=== PATIENT | male | born 1950 | race Caucasian/White ===

== ENCOUNTER 2016-07-06 16:49 | Emergency (ER) | payer OTHER, MEDICARE ==
[2016-07-06 16:58] VITALS: TEMP 99.4
--- NOTE | 2016-07-06 17:17 | ED ---
Abdominal Pain HPI - General Chief Complaint: Abdominal Pain Stated Complaint: Abdominal Pain Time Seen by Provider: 07/06/16 17:07 Source: patient Mode of arrival: ambulatory Limitations: no limitations - History of Present Illness Initial Comments: 65-year-old male patient presents to emergency department today for complaints of right-sided abdominal pain that started 2 days ago. Patient states with this he has been having some associated nausea. Patient has been able to eat and drink without difficulty however. Patient denies any pain at rest but states that he gets a sharp pain that takes his breath away when he sits forward or tenses his abdominal muscles. Patient denies any vomiting, dizziness , weakness, chest pain, shortness of breath, constipation, diarrhea, hematuria, dysuria, urinary urgency, or urinary frequency. Patient denies any fever or chills. Does have a past medical history significant for kidney stones as well as diverticulitis. - Related Data Home Medications Medication Instructions Recorded Confirmed Ascorbic Acid [Vitamin C] 500 mg PO DAILY 07/06/16 07/06/16 Cholecalciferol [Vitamin D3] 2,000 unit PO DAILY 07/06/16 07/06/16 Insulin Glargine [Lantus] 70 units SQ DAILY 07/06/16 07/06/16 Lisinopril [Zestril] 5 mg PO DAILY 07/06/16 07/06/16 Thiamine HCl [Vitamin B-1] 100 mg PO DAILY 07/06/16 07/06/16 metFORMIN HCL [Glucophage] 1,000 mg PO BID 07/06/16 07/06/16 Previous Rx's Medication Instructions Recorded Ciprofloxacin HCl [Cipro] 500 mg PO Q12HR #20 tablet 07/06/16 metroNIDAZOLE [Flagyl] 500 mg PO TID #30 tab 07/06/16 Allergies Allergy/AdvReac Type Severity Reaction Status Date / Time No Known Allergies Allergy Verified 07/06/16 17:09 Review of Systems ROS Statement: Those systems with pertinent positive or pertinent negative responses have been documented in the HPI. ROS Other: All systems not noted in ROS Statement are negative. Past Medical History Past Medical History: Diabetes Mellitus Additional Past Medical History / Comment(s): kidney stones History of Any Multi-Drug Resistant Organisms: None Reported Past Surgical History: Bladder Surgery, Cholecystectomy, Tonsillectomy Past Psychological History: No Psychological Hx Reported Smoking Status: Never smoker Past Alcohol Use History: Occasional Past Drug Use History: None Reported General Exam Limitations: no limitations General appearance: alert, in no apparent distress Head exam: Present: atraumatic, normocephalic, normal inspection Eye exam: Present: normal appearance, PERRL, EOMI. Absent: scleral icterus, conjunctival injection, periorbital swelling ENT exam: Present: normal exam, normal oropharynx, mucous membranes moist Neck exam: Present: normal inspection. Absent: tenderness, meningismus, lymphadenopathy Respiratory exam: Present: normal lung sounds bilaterally. Absent: respiratory distress, wheezes, rales, rhonchi, stridor Cardiovascular Exam: Present: regular rate, normal rhythm, normal heart sounds. Absent: systolic murmur, diastolic murmur, rubs, gallop, clicks GI/Abdominal exam: Present: soft, tenderness (Mild over the left lower quadrant and right lower quadrant), normal bowel sounds. Absent: distended, guarding, rebound, rigid Back exam: Present: normal inspection. Absent: CVA tenderness (R), CVA tenderness (L) Neurological exam: Present: alert, oriented X3, CN II-XII intact Psychiatric exam: Present: normal affect, normal mood Skin exam: Present: warm, dry, intact, normal color. Absent: rash Course Vital Signs 07/06/16 07/06/16 16:55 19:38 Temperature 99.4 F Pulse Rate 87 91 Respiratory 18 16 Rate Blood Pressure 150/76 130/73 O2 Sat by Pulse 98 96 Oximetry - Reevaluation(s) Reevaluation #1: 07/06/16 18:46 Reevaluated patient has this time. He states pain is tolerable and denies need for pain medications at this time. Will order a computed tomography scan due to patient's history of diverticulitis as well as kidney stones. Medical Decision Making - Medical Decision Making 65-year-old male patient presented to the emergency department today for complaints of right-sided abdominal pain with some nausea. Lab work and KUB x- ray of the abdomen was unremarkable. Also perform computed tomography scan which showed some focal colitis near the hepatic flexure. Patient will be discharged home with prescription for Flagyl and Cipro. Instructions to follow up with his primary care physician in one to 2 days. Instructed patient to return for any worsening, new, or concerning symptoms. - Lab Data Result diagrams: 07/06/16 17:40 07/06/16 17:40 Lab Results 07/06/16 07/06/16 07/06/16 Range/Units 17:40 17:40 17:40 WBC 9.8 (3.8-10.6) k/uL RBC 5.66 (4.30-5.90) m/uL Hgb 16.8 (13.0-17.5) gm/dL Hct 49.9 (39.0-53.0) % MCV 88.0 (80.0-100.0) fL MCH 29.7 (25.0-35.0) pg MCHC 33.7 (31.0-37.0) g/dL RDW 13.6 (11.5-15.5) % Plt Count 239 (150-450) k/uL Neutrophils % 66 % Lymphocytes % 24 % Monocytes % 5 % Eosinophils % 3 % Basophils % 1 % Neutrophils # 6.4 (1.3-7.7) k/uL Lymphocytes # 2.4 (1.0-4.8) k/uL Monocytes # 0.5 (0-1.0) k/uL Eosinophils # 0.3 (0-0.7) k/uL Basophils # 0.1 (0-0.2) k/uL Sodium 141 (137-145) mmol/L Potassium 4.6 (3.5-5.1) mmol/L Chloride 105 (98-107) mmol/L Carbon Dioxide 24 (22-30) mmol/L Anion Gap 12 mmol/L BUN 12 (9-20) mg/dL Creatinine 0.74 (0.66-1.25) mg/dL Est GFR (MDRD) Af Amer >60 (>60 ml/min/1.73 sqM) Est GFR (MDRD) Non-Af >60 (>60 ml/min/1.73 sqM) Glucose 242 H (74-99) mg/dL Calcium 10.2 (8.4-10.2) mg/dL Total Bilirubin 0.8 (0.2-1.3) mg/dL AST 42 (17-59) U/L ALT 58 (21-72) U/L Alkaline Phosphatase 123 (38-126) U/L Total Protein 7.5 (6.3-8.2) g/dL Albumin 4.5 (3.5-5.0) g/dL Amylase 65 (30-110) U/L Lipase 60 (23-300) U/L Urine Color Yellow Urine Appearance Clear (Clear) Urine pH 5.5 (5.0-8.0) Ur Specific [place] 1.020 (1.001-1.035) Urine Protein Negative (Negative) Urine Glucose (UA) 4+ H (Negative) Urine Ketones Negative (Negative) Urine Blood Negative (Negative) Urine Nitrite Negative (Negative) Urine Bilirubin Negative (Negative) Urine Urobilinogen <2.0 (<2.0) mg/dL Ur Leukocyte Esterase Negative (Negative) - Radiology Data Radiology results: report reviewed CT abdomen and pelvis with contrast reveals mild atelectasis at the right lung base. Normal appendix. Mild sigmoid diverticulosis without diverticulitis. 1 cm cyst noted in the upper pole of the left kidney. Small hepatic cysts. Also minimal fat straining in the hepatic flexure of the colon consistent with focal colitis. Impression by Dr. Pitt. Disposition Clinical Impression: Colitis, Uncontrolled diabetes mellitus Disposition: HOME SELF-CARE Condition: Stable Instructions: Colitis (ED) Additional Instructions: Increase fluids. Complete prescriptions and follow-up with primary care physician in one to 2 days for recheck. Monitor blood sugars. Return for any new, worsening, or concerning symptoms. Prescriptions: Ciprofloxacin HCl [Cipro] 500 mg PO Q12HR #20 tablet metroNIDAZOLE [Flagyl] 500 mg PO TID #30 tab Referrals: None,Stated [Primary Care Provider] - 1-2 days Time of Disposition: 19:40
[2016-07-06 17:57] LABS: Basophils # (A) 0.1 k/uL (0-0.2); Basophils % (A) 1 %; CH 30.5; CHCM 34.8; Eosinophils # (A) 0.3 k/uL (0-0.7); Eosinophils % (A) 3 %; HCT 49.9 % (39.0-53.0); HDW 2.45; HGB 16.8 gm/dL (13.0-17.5); Luc # (Auto) 0.17; Luc % (Auto) 2; Lymphocytes # (A) 2.4 k/uL (1.0-4.8); Lymphocytes % (A) 24 %; MCH 29.7 pg (25.0-35.0); MCHC 33.7 g/dL (31.0-37.0); Mean Platelet Volume 7.5; Monocytes # (A) 0.5 k/uL (0-1.0); Monocytes % (A) 5 %; Neutrophils # (A) 6.4 k/uL (1.3-7.7); Neutrophils % (A) 66 %; RBC 5.66 m/uL (4.30-5.90); RDW 13.6 % (11.5-15.5); WBC 9.8 k/uL (3.8-10.6); WBC (Perox) 9.54
[2016-07-06 18:00] LABS: Appearance,Urine Clear (Clear); Bilirubin,Urine Negative (Negative); Glucose,Urine (UA) 4+ (Negative); Ketones,Urine Negative (Negative); Leukocyte Esterase,Urine Negative (Negative); Nitrite,Urine Negative (Negative); PH, Urine 5.5 (5.0-8.0); Protein,Urine Negative (Negative); UA Billing (MACRO vs. MICRO) CHEM; Urobilinogen,Urine <2.0 mg/dL (<2.0)
[2016-07-06 18:10] LABS: ALT 58 U/L (21-72); AST 42 U/L (17-59); Alkaline Phosphatase 123 U/L (38-126); Amylase 65 U/L (30-110); Anion Gap 12 mmol/L; Blood Urea Nitrogen 12 mg/dL (9-20); Calcium 10.2 mg/dL (8.4-10.2); Carbon Dioxide 24 mmol/L (22-30); Chloride 105 mmol/L (98-107); Glucose 242 mg/dL (74-99); Non-African American GFR(MDRD) >60 (>60 ml/min/1.73 sqM); Potassium 4.6 mmol/L (3.5-5.1); Sodium 141 mmol/L (137-145); Total Bilirubin 0.8 mg/dL (0.2-1.3); Total Protein 7.5 g/dL (6.3-8.2)
--- NOTE | 2016-07-06 18:11 | XR ---
EXAMINATION TYPE: XR KUB DATE OF EXAM: 07/06/2016 5:56 PM COMPARISON: NONE HISTORY: Abdominal pain TECHNIQUE: 2 views FINDINGS: There is no sign of intestinal obstruction or pneumoperitoneum. Fecal pattern is normal. Wilda ng bases are clear. There are no pathologic calcifications over the kidneys. There are clips from cho lecystectomy. IMPRESSION: Nonacute abdomen.
[2016-07-06] MEDS ORDERED: RX INFO: IV CONTRAST WAS GIVEN 1 EACH MISC MISCELLANE PRN (18:30)
[2016-07-06] MEDS ORDERED: SODIUM CHLORIDE 0.9% 1,000 ML IV ONE (19:09)
--- NOTE | 2016-07-06 19:35 | CT ---
EXAMINATION TYPE: CT abdomen pelvis w con DATE OF EXAM: 07/06/2016 7:07 PM COMPARISON: NONE HISTORY: Patient complains of RUQ pain. CT DLP: 1693.7 mGycm Automated exposure control for dose reduction was used. TECHNIQUE: Helical acquisition of images was performed from the lung bases through the pelvis. CONTRAST: Performed without Oral Contrast and with IV Contrast, patient injected with 100 mL of Omnipaque 300. FINDINGS: There is mild atelectasis at the right lung base. Heart size is normal. There is a 1 cm cyst in the l eft lobe of the liver. Liver shows no focal defect otherwise. Bile ducts are not dilated. There are c lips from cholecystectomy. Pancreas appears normal. Spleen appears normal. There is no adrenal mass. Kidneys show satisfactory contrast opacification. There is no hydronephrosis. There is no retroperito latrice adenopathy. There is no ascites. I see no intestinal wall thickening. There are no dilated loops . Appendix appears normal. Bony structures are intact. There are few sigmoid diverticula. There is mi ld fat stranding around the hepatic flexure of the colon. IMPRESSION: MILD ATELECTASIS AT THE RIGHT LUNG BASE. NORMAL APPENDIX. MILD SIGMOID DIVERTICULOSIS WITHOUT DIVERTI CULITIS. 1 CM CYST NOTED IN UPPER POLE LEFT KIDNEY. SMALL HEPATIC CYST. MINIMAL FAT STRANDING IN THE HEPATIC FLEXURE OF THE COLON CONSISTENT WITH FOCAL COLITIS.
[2016-07-06 19:39] VITALS: BP 130/73; PULSE 91; RESP 16
== END 2016-07-06 20:31 | disposition home or self-care (01) ==
LOC: EC 16:49
DX: K52.9 Noninfective gastroenteritis and colitis, unspecified (principal); E11.65 Type 2 diabetes mellitus with hyperglycemia; Z79.4 Long term (current) use of insulin; Z79.84 Long term (current) use of oral hypoglycemic drugs; Z79.899 Other long term (current) drug therapy; Z87.19 Personal history of other diseases of the digestive system; Z87.442 Personal history of urinary calculi
CPT/HCPCS: 99284 ×2; 96360 ×2; 36415; 80053; 82150; 83690; 85025; 81003; 74000; 74177; Q9967

== ENCOUNTER → 2017-05-05 | Outpatient (CLI) | payer OTHER, MEDICARE ==
--- NOTE | 2017-05-05 09:25 | US ---
EXAMINATION TYPE: US carotid duplex BILAT DATE OF EXAM: 05/05/2017 COMPARISON: NONE CLINICAL HISTORY: Dizziness and giddiness R42. Borderline HTN, no hx of tia or stroke EXAM MEASUREMENTS: RIGHT: Peak Systolic Velocity (PSV) cm/sec ----- Right CCA: 105.1 ----- Right ICA: 87.8 ----- Right ECA: 135.0 ICA/CCA ratio: 0.8 RIGHT: End Diastole cm/sec ----- Right CCA: 27.0 ----- Right ICA: 24.1 ----- Right ECA: 30.0 LEFT: Peak Systolic Velocity (PSV) cm/sec ----- Left CCA: 107.9 ----- Left ICA: 73.5 ----- Left ECA: 114.5 ICA/CCA ratio: 0.7 LEFT: End Diastole cm/sec ----- Left CCA: 22.0 ----- Left ICA: 15.3 ----- Left ECA: 17.6 VERTEBRALS (direction of flow): Right Vertebral: Antegrade Left Vertebral: Antegrade Rhythm: Normal No plaque, wall thickening, or significant stenosis seen. Elevated right ECA. IMPRESSION: No evidence for hemodynamically significant stenosis. Criteria for Assigning % of Stenosis / Diameter reduction (Estimation based on the indirect measurements of the internal carotid artery velocities (ICA PSV). 1. Normal (no stenosis)=ICA PSV < 125 cm/s: ratio < 2.0: ICA EDV<40 cm/s. 2. Less than 50% stenosis=ICA PSV < 125 cm/s: ratio < 2.0: ICA EDV<40 cm/s. 3. 50 to 69% stenosis=ICA PSV of 125 to 230 cm/s: ration 2.0 ? 4.0: ICA EDV 40-100 cm/s. 4. Greater than 70% stenosis to near occlusion= ICA PSV > 230 cm/s: ratio > 4.0: ICA EDV > 100 cm/s. 5. Near occlusion= ICA PSV velocities may be low or undetectable: variable ratio and ICA EDV. 6. Total occlusion=unable to detect flow.
--- NOTE | 2017-05-05 09:27 | US ---
EXAMINATION TYPE: US scrotum with doppler. Grayscale and color Doppler Duplex imaging performed of t he scrotum. DATE OF EXAM: 05/05/2017 COMPARISON: NONE CLINICAL HISTORY: Dizziness and giddiness R42 Mass R testice N50.819. Patient states doctor felt righ t sided mass. Patient states no pain, discomfort or swelling. EXAM MEASUREMENTS: TESTICLES: Right Testicle: 4.1 x 3.5 x 2.7 cm Left Testicle: 4.5 x 3.3 x 2.4 cm EPIDIDYMIS HEAD: Right Epididymis: 1.1 x 1.2 x 0.6 cm Left Epididymis: 1.3 x 0.9 x 0.8 cm Doppler performed to assess for testicular vascularity; good bilateral color flow and waveforms are s een. There is no evidence of testicular torsion. Presence of hydroceles: yes, bilateral Presence of varicoceles: yes, bilateral with valsalva performed No masses or lesions seen within bilateral testes. Calcifications seen in right scrotal sac, largest = 0.9 cm. Left epididymal cyst seen in head = 0.4 cm. Pedunculated left epididymal cyst = 0.8 cm. IMPRESSION: 1. Bilateral hydroceles and varicoceles. 2. Focal calcifications right scrotal sac possibly from remote infection. 3. Epididymal cysts noted on the left.
== END | disposition home or self-care (01) ==
LOC: RADUSWWP 08:08
PROVIDERS: ATTEND Physician Assistant
DX: N43.3 Hydrocele, unspecified (principal); I86.1 Scrotal varices; N50.3 Cyst of epididymis; R42 Dizziness and giddiness
CPT/HCPCS: 76870; 93880; 93975

== ENCOUNTER 2017-06-04 00:30 | Observation (INO) | payer MEDICARE, OTHER ==
[2017-06-04 01:09] LABS: Basophils # (A) 0.1 k/uL (0-0.2); Basophils % (A) 1 %; Eosinophils # (A) 0.2 k/uL (0-0.7); Eosinophils % (A) 1 %; HCT 49.5 % (39.0-53.0); Lymphocytes # (A) 2.4 k/uL (1.0-4.8); Lymphocytes % (A) 23 %; MCH 29.1 pg (25.0-35.0); MCHC 32.3 g/dL (31.0-37.0); MCV 90.2 fL (80.0-100.0); Mean Platelet Volume 7.3; Monocytes # (A) 0.5 k/uL (0-1.0); Monocytes % (A) 4 %; Neutrophils # (A) 7.4 k/uL (1.3-7.7); Neutrophils % (A) 70 %; Platelet Count 256 k/uL (150-450); RBC 5.49 m/uL (4.30-5.90); WBC 10.6 k/uL (3.8-10.6)
[2017-06-04 01:18] LABS: INR 1.1 (<1.2); Partial Thromboplastin Time 22.8 sec (22.0-30.0); Prothrombin Time 10.3 sec (9.0-12.0)
[2017-06-04 01:20] LABS: ALT 52 U/L (21-72); AST 34 U/L (17-59); Albumin 4.6 g/dL (3.5-5.0); Alkaline Phosphatase 114 U/L (38-126); Anion Gap 16 mmol/L; Blood Urea Nitrogen 14 mg/dL (9-20); Calcium 9.9 mg/dL (8.4-10.2); Carbon Dioxide 20 mmol/L (22-30); Chloride 101 mmol/L (98-107); Glucose 272 mg/dL (74-99); Magnesium 1.6 mg/dL (1.6-2.3); Potassium 4.8 mmol/L (3.5-5.1); Sodium 137 mmol/L (137-145); Total Bilirubin 0.6 mg/dL (0.2-1.3); Total Protein 7.5 g/dL (6.3-8.2)
--- NOTE | 2017-06-04 01:22 | ED ---
General Adult HPI - General Chief complaint: Chest Pain Stated complaint: WILIAN/Vomiting/Chest Pressure Time Seen by Provider: 06/04/17 00:39 Source: patient, family, RN notes reviewed, old records reviewed Mode of arrival: wheelchair Limitations: no limitations - History of Present Illness Initial comments: This is a 66-year-old male to the ER for evaluation of chest pain. Chest heaviness left-sided chest heaviness. Symptoms aren't prior to arrival worse when he got to the hospital. Patient has history of diabetes. No recent history of cardiac evaluation. Patient was continued chest pain heaviness at this time. No diaphoresis no shortness of breath. Patient denies cough congestion or fever. No travel history - Related Data Home Medications Medication Instructions Recorded Confirmed Ascorbic Acid [Vitamin C] 500 mg PO DAILY 07/06/16 06/04/17 Cholecalciferol [Vitamin D3] 2,000 unit PO DAILY 07/06/16 06/04/17 Insulin Glargine [Lantus] 70 units SQ DAILY 07/06/16 06/04/17 Lisinopril [Zestril] 5 mg PO DAILY 07/06/16 06/04/17 Thiamine HCl [Vitamin B-1] 100 mg PO DAILY 07/06/16 06/04/17 Liraglutide [Victoza 3-Gera] 1.8 mg SQ DAILY 06/04/17 06/04/17 Allergies Allergy/AdvReac Type Severity Reaction Status Date / Time No Known Allergies Allergy Verified 06/04/17 00:36 Review of Systems ROS Statement: Those systems with pertinent positive or pertinent negative responses have been documented in the HPI. ROS Other: All systems not noted in ROS Statement are negative. Past Medical History Past Medical History: Diabetes Mellitus Additional Past Medical History / Comment(s): kidney stones History of Any Multi-Drug Resistant Organisms: None Reported Past Surgical History: Bladder Surgery, Cholecystectomy, Tonsillectomy Past Psychological History: No Psychological Hx Reported Smoking Status: Never smoker Past Alcohol Use History: Occasional Past Drug Use History: None Reported General Exam Limitations: no limitations General appearance: alert, in no apparent distress Head exam: Present: atraumatic, normocephalic, normal inspection Eye exam: Present: normal appearance, PERRL, EOMI. Absent: scleral icterus, conjunctival injection, periorbital swelling ENT exam: Present: normal exam, mucous membranes moist Neck exam: Present: normal inspection. Absent: tenderness, meningismus, lymphadenopathy Respiratory exam: Present: normal lung sounds bilaterally. Absent: respiratory distress, wheezes, rales, rhonchi, stridor Cardiovascular Exam: Present: regular rate, normal rhythm, normal heart sounds. Absent: systolic murmur, diastolic murmur, rubs, gallop, clicks GI/Abdominal exam: Present: soft, normal bowel sounds. Absent: distended, tenderness, guarding, rebound, rigid Extremities exam: Present: normal inspection, full ROM, normal capillary refill. Absent: tenderness, pedal edema, joint swelling, calf tenderness Back exam: Present: normal inspection Neurological exam: Present: alert, oriented X3, CN II-XII intact Psychiatric exam: Present: normal affect, normal mood Skin exam: Present: warm, dry, intact, normal color. Absent: rash Course Vital Signs 06/04/17 06/04/17 00:33 01:57 Temperature 97.8 F Pulse Rate 87 90 Respiratory 18 18 Rate Blood Pressure 154/77 119/74 O2 Sat by Pulse 94 L 95 Oximetry - Reevaluation(s) Reevaluation #1: 06/04/17 02:35 Patient has continued chest pain here in the ER EKG Findings - EKG Comments: EKG Findings:: EKG shows sinus rhythm rate of 89, OH 142, QRS 78, QTC 447, occasional PVC Medical Decision Making - Medical Decision Making 66 male the ER for evaluation of chest pain. History of diabetes. No prior cardiac or no recent cardiac evaluation. Patient chest pain about 2 hours prior to arrival watching TV heaviness and pressure in her chest. No shortness of breath. Patient will be admitted for cardiac evaluation and treatment - Lab Data Result diagrams: 06/04/17 00:55 06/04/17 00:55 Lab Results 06/04/17 06/04/17 06/04/17 Range/Units 00:55 00:55 00:55 WBC 10.6 (3.8-10.6) k/uL RBC 5.49 (4.30-5.90) m/uL Hgb 16.0 (13.0-17.5) gm/dL Hct 49.5 (39.0-53.0) % MCV 90.2 (80.0-100.0) fL MCH 29.1 (25.0-35.0) pg MCHC 32.3 (31.0-37.0) g/dL RDW 13.0 (11.5-15.5) % Plt Count 256 (150-450) k/uL Neutrophils % 70 % Lymphocytes % 23 % Monocytes % 4 % Eosinophils % 1 % Basophils % 1 % Neutrophils # 7.4 (1.3-7.7) k/uL Lymphocytes # 2.4 (1.0-4.8) k/uL Monocytes # 0.5 (0-1.0) k/uL Eosinophils # 0.2 (0-0.7) k/uL Basophils # 0.1 (0-0.2) k/uL PT (9.0-12.0) sec INR (<1.2) APTT (22.0-30.0) sec Sodium 137 (137-145) mmol/L Potassium 4.8 (3.5-5.1) mmol/L Chloride 101 (98-107) mmol/L Carbon Dioxide 20 L (22-30) mmol/L Anion Gap 16 mmol/L BUN 14 (9-20) mg/dL Creatinine 0.80 (0.66-1.25) mg/dL Est GFR (MDRD) Af Amer >60 (>60 ml/min/1.73 sqM) Est GFR (MDRD) Non-Af >60 (>60 ml/min/1.73 sqM) Glucose 272 H (74-99) mg/dL Calcium 9.9 (8.4-10.2) mg/dL Magnesium 1.6 (1.6-2.3) mg/dL Total Bilirubin 0.6 (0.2-1.3) mg/dL AST 34 (17-59) U/L ALT 52 (21-72) U/L Alkaline Phosphatase 114 (38-126) U/L Total Creatine Kinase 84 (55-170) U/L CK-MB (CK-2) 0.7 (0.0-2.4) ng/mL CK-MB (CK-2) Rel Index 0.8 Troponin I <0.012 (0.000-0.034) ng/mL Total Protein 7.5 (6.3-8.2) g/dL Albumin 4.6 (3.5-5.0) g/dL 06/04/17 Range/Units 00:55 WBC (3.8-10.6) k/uL RBC (4.30-5.90) m/uL Hgb (13.0-17.5) gm/dL Hct (39.0-53.0) % MCV (80.0-100.0) fL MCH (25.0-35.0) pg MCHC (31.0-37.0) g/dL RDW (11.5-15.5) % Plt Count (150-450) k/uL Neutrophils % % Lymphocytes % % Monocytes % % Eosinophils % % Basophils % % Neutrophils # (1.3-7.7) k/uL Lymphocytes # (1.0-4.8) k/uL Monocytes # (0-1.0) k/uL Eosinophils # (0-0.7) k/uL Basophils # (0-0.2) k/uL PT 10.3 (9.0-12.0) sec INR 1.1 (<1.2) APTT 22.8 (22.0-30.0) sec Sodium (137-145) mmol/L Potassium (3.5-5.1) mmol/L Chloride (98-107) mmol/L Carbon Dioxide (22-30) mmol/L Anion Gap mmol/L BUN (9-20) mg/dL Creatinine (0.66-1.25) mg/dL Est GFR (MDRD) Af Amer (>60 ml/min/1.73 sqM) Est GFR (MDRD) Non-Af (>60 ml/min/1.73 sqM) Glucose (74-99) mg/dL Calcium (8.4-10.2) mg/dL Magnesium (1.6-2.3) mg/dL Total Bilirubin (0.2-1.3) mg/dL AST (17-59) U/L ALT (21-72) U/L Alkaline Phosphatase (38-126) U/L Total Creatine Kinase (55-170) U/L CK-MB (CK-2) (0.0-2.4) ng/mL CK-MB (CK-2) Rel Index Troponin I (0.000-0.034) ng/mL Total Protein (6.3-8.2) g/dL Albumin (3.5-5.0) g/dL Critical Care Time Critical Care Time: Yes Total Critical Care Time: 31 Disposition Clinical Impression: Chest pain Disposition: ADMITTED IP TO THIS HOSP Condition: Undetermined Instructions: Chest Pain (ED) Referrals: Nonstaff,Physician [Primary Care Provider] - 1-2 days
[2017-06-04 01:28] LABS: Creatine Kinase 84 U/L (55-170)
[2017-06-04 01:41] LABS: Creatine Kinase MB 0.7 ng/mL (0.0-2.4); Troponin I <0.012 ng/mL (0.000-0.034)
--- NOTE | 2017-06-04 01:54 | XR ---
EXAMINATION TYPE: XR chest 2V DATE OF EXAM: 06/04/2017 COMPARISON: NONE HISTORY: Chest pain TECHNIQUE: Frontal and lateral views of the chest are obtained. FINDINGS: Heart and mediastinum are normal. Lungs are clear. Diaphragm is normal. Bony thorax is int act. There are chest leads. IMPRESSION: No active cardiopulmonary disease.
[2017-06-04] MEDS ORDERED: ASPIRIN 81 MG PO STA (02:34)
[2017-06-04] MEDS ORDERED: HEPARIN SODIUM,PORCINE 5,000 UNIT/ML 1 ML VIAL IV PRN (02:34)
[2017-06-04] MEDS ORDERED: NITROGLYCERIN SL TABS 0.4 MG TAB SUBLINGUAL PRN ×2 (02:34→14:43)
[2017-06-04] MEDS ORDERED: HEPARIN SODIUM,PORCINE 5,000 UNIT/ML 1 ML VIAL IV ONE (02:34)
[2017-06-04] MEDS ORDERED: MORPHINE SULFATE 4 MG/ML SYRINGE IV PRN (02:34)
[2017-06-04] MEDS ORDERED: HEPARIN SOD,PORK IN 0.45% NACL 25,000 UNIT in 0.45% NACL 1 500ML.BAG IV SCH (02:45)
[2017-06-04 07:12] LABS: Mean Platelet Volume 7.3; Platelet Count 247 k/uL (150-450)
[2017-06-04 07:41] LABS: Creatine Kinase 75 U/L (55-170)
[2017-06-04 07:53] LABS: Creatine Kinase MB 0.6 ng/mL (0.0-2.4); Troponin I <0.012 ng/mL (0.000-0.034)
[2017-06-04] MEDS: ATORVASTATIN 80 MG TAB PO SCH (10:00)
[2017-06-04] MEDS: METOPROLOL TARTRATE 25 MG TAB PO SCH ×2 (10:01→19:51)
[2017-06-04] MEDS ORDERED: SODIUM CHLORIDE 0.9% 1,000 ML in EMPTY BAG 1 BAG IV ONE (10:02)
[2017-06-04] MEDS ORDERED: ALPRAZolam 0.5 MG TAB PO PRN (10:02)
[2017-06-04] MEDS ORDERED: ALPRAZolam 0.25 MG TAB PO PRN (10:02)
[2017-06-04] MEDS ORDERED: MAGNESIUM SULFATE-D5W PMX 1 GM in DEXTROSE/WATER 1 100ML.BAG IVPB ONE (11:32)
--- NOTE | 2017-06-04 11:43 | ECHOF ---
Referral Reason:chest pain MEASUREMENTS -------- HEIGHT: 170.2 cm WEIGHT: 99.8 kg BP: 161/90 RVIDd: 3.3 cm (< 3.3) IVSd: 1.5 cm (0.6 - 1.1) LVIDd: 3.0 cm (3.9 - 5.3) LVPWd: 1.4 cm (0.6 - 1.1) IVSs: 1.8 cm LVIDs: 2.2 cm LVPWs: 1.6 cm LAESV Index (A-L): 25.60 ml/m Ao Diam: 4.0 cm (2.0 - 3.7) AV Cusp: 1.7 cm (1.5 - 2.6) LA Diam: 3.0 cm (2.7 - 3.8) MV E Eliazar: 0.80 m/s MV DecT: 240 ms MV A Eliazar: 0.95 m/s MV E/A Ratio: 0.84 AV maxP.59 mmHg AV meanP.44 mmHg AR PHT: 396 ms RAP: 5.00 mmHg RVSP: 16.78 mmHg FINDINGS -------- Sinus rhythm with extra systolic beats. This was a technically adequate study. The left ventricular size is normal. There is moderate concentric left ventricular hypertrophy. O verall left ventricular systolic function is normal with, an EF between 55 - 60 %. The right ventricle is mildly enlarged. Normal LA size by volume 22+/-6 ml/m2. The right atrium is normal in size. Aortic valve is trileaflet and is moderately thickened. There is mild aortic regurgitation. There is mild aortic stenosis present. Peak/mean gradient across the Aortic Valve is 15.59mmHg / 8.44mmH g. The mitral valve is normal. There is trace mitral regurgitation. Trace tricuspid regurgitation present. Right ventricular systolic pressure is normal at < 35 mmHg. There is no evidence of pulmonary hypertension. Trace/mild (physiologic) pulmonic regurgitation. 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 Normal inferior vena cava with normal inspiratory collapse consistent with estimated right atrial pre ssure of 5 mmHg. The pericardium is normal. There is no pericardial effusion. CONCLUSIONS -------- 1. Sinus rhythm with extra systolic beats. 2. This was a technically adequate study. 3. The left ventricular size is normal. 4. There is moderate concentric left ventricular hypertrophy. 5. Overall left ventricular systolic function is normal with, an EF between 55 - 60 %. 6. The right ventricle is mildly enlarged. 7. Normal LA size by volume 22+/-6 ml/m2. 8. Aortic valve is trileaflet and is moderately thickened. 9. There is mild aortic regurgitation. 10. There is mild aortic stenosis present. 11. Peak/mean gradient across the Aortic Valve is 15.59mmHg / 8.44mmHg. 12. There is trace mitral regurgitation. 13. Trace tricuspid regurgitation present. 14. Right ventricular systolic pressure is normal at < 35 mmHg. 15. There is no evidence of pulmonary hypertension. 16. Trace/mild (physiologic) pulmonic regurgitation. 17. 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 18. There is no pericardial effusion. BUS ESCORT: Jose Armando Sheldon RDCS
--- NOTE | 2017-06-04 12:13 | P.CRDCN ---
History of Present Illness Consult date: 06/04/17 Consult reason: chest pain History of present illness: This is a pleasant 66-year-old male past medical history significant for diabetes mellitus, dyslipidemia and hypertension. He denies history of coronary artery disease and does not follow with any laboratory technical specialist for any reason. We have been asked to see him in consultation for chest pain. He states last night while he was sitting down on the couch and experienced a heaviness in the left precordial region associated with diaphoresis, nausea, dizziness and shortness of breath. The symptoms persisted for approximately 4 hours before he presented to the hospital. The pain was still ongoing when he was in the emergency department for approximately another hour or so and eventually subsided on its own. He denies ever having symptoms like this in the past. Pain did not radiate to his arms back neck or jaw. At the time of my exam he is chest pain-free denies any ongoing symptoms of shortness of breath , dizziness, nausea or diaphoresis. He denies having ever smoked. His mother has a history of undergoing angioplasty in her mid 60's. EKG on arrival reveals sinus mechanism no acute ST or T-wave abnormalities with PVCs noted. Chest x-ray negative for an acute cardiopulmonary process. Laboratory data reviewed, hemoglobin 16, platelets 247, potassium 4.8, magnesium 1.6, cardiac enzymes negative 2, BUS and 14, creatinine 0.8, GFR greater than 60. Current cardiac medications include pravastatin 40 mg daily and lisinopril 10 mg daily. There are no old records to review. Review of Systems At the time of my exam: CONSTITUTIONAL: Denies fever. Denies chills. EYES: Denies blurred vision. Denies vision changes. Denies eye pain. EARS, NOSE, MOUTH & THROAT: Denies headache. Denies sore throat. Denies ear pain. CARDIOVASCULAR: Denies chest pain. Denies shortness of breath. Denies orthopnea. Denies PND. Denies palpitations. RESPIRATORY: Denies cough. GASTROINTESTINAL: Denies abdominal pain. Denies diarrhea. Denies constipation. Denies nausea. Denies vomiting. MUSCULOSKELETAL: Denies myalgias. INTEGUMENTARY: Denies pruitis. Denies rash. NEUROLOGIC: Denies numbness. Denies tingling. Denies weakness. PSYCHIATRIC: Denies anxiety. Denies depression. ENDOCRINE: Denies fatigue. Denies weight change. Denies polydipsia. Denies polyurina. GENITOURINARY: Denies burning, hematuria or urgency with micturation. HEMATOLOGIC: Denies history of anemia. Denies bleeding. Past Medical History Past Medical History: Diabetes Mellitus, Hyperlipidemia, Hypertension, Renal Disease Additional Past Medical History / Comment(s): IDDM type II, nephrolithiasis- passed stones on his own, meniere's dx, R ear deafness, vertigo, benign colon polyps. History of Any Multi-Drug Resistant Organisms: None Reported Past Surgical History: Cholecystectomy, Tonsillectomy Additional Past Surgical History / Comment(s): Bilateral ureter surgery as a child for misplacement, colonoscopies/benign polypectomies. Past Anesthesia/Blood Transfusion Reactions: Motion Sickness, Postoperative Nausea & Vomiting (PONV) Smoking Status: Never smoker - Past Family History Father Additional Family Medical History / Comment(s): Father was an alcoholic and pt did not know him well. Mother Family Medical History: Coronary Artery Disease (CAD), Myocardial Infarction ([place] ) Additional Family Medical History / Comment(s): Pt states mother had CAD diagnosed in her 60's with PCI/stents placed. He believes she had a [place] in that same time frame. Medications and Allergies Home Medications Medication Instructions Recorded Confirmed Type Insulin Glargine [Lantus] 70 units SQ HS 07/06/16 06/04/17 History Ammonium Lactate Cream [Lac-Hydrin 1 applic TOPICAL DAILY 06/04/17 06/04/17 History 12% Cream] Gabapentin [Neurontin] 300 mg PO HS 06/04/17 06/04/17 History Liraglutide [Victoza 3-Gera] 1.8 mg SQ DAILY 06/04/17 06/04/17 History Lisinopril [Zestril] 10 mg PO DAILY 06/04/17 06/04/17 History Pravastatin Sodium [Pravachol] 40 mg PO HS 06/04/17 06/04/17 History Sildenafil Citrate [Viagra] 100 mg PO DIRECTED PRN 06/04/17 06/04/17 History metFORMIN HCL ER [Glucophage Xr] 1,000 mg PO AC-BID 06/04/17 06/04/17 History Allergies Allergy/AdvReac Type Severity Reaction Status Date / Time No Known Allergies Allergy Verified 06/04/17 07:42 Physical Exam Vitals: Vital Signs Temp Pulse Resp BP Pulse Ox 06/04/17 11:32 98.1 F 86 18 136/87 95 06/04/17 09:58 82 18 161/90 96 06/04/17 07:13 85 18 125/62 95 06/04/17 05:55 79 18 114/60 94 L 06/04/17 03:57 80 18 151/76 96 06/04/17 01:57 90 18 119/74 95 06/04/17 00:33 97.8 F 87 18 154/77 94 L Intake and Output 06/03/17 06/04/17 06/04/17 22:59 06:59 14:59 Other: Weight 99.79 kg Blood pressure 125/62 heart rate 85 afebrile GENERAL: This is a 66-year-old male in no apparent distress at the time of my examination. HEENT: Head is atraumatic, normocephalic. Pupils are equal, round. Sclerae anicteric. Conjunctivae are clear. Mucous membranes of the mouth are moist. Neck is supple. There is no jugular venous distention. No carotid bruit is heard. LUNGS: Clear to auscultation no wheezes, rales or rhonchi. No chest wall tenderness is noted on palpation or with deep breathing. HEART: Regular rate and rhythm without murmurs, rubs or gallops. S1 and S2 heard. ABDOMEN: Soft, nontender. Bowel sounds are heard. No organomegaly noted. EXTREMITIES: No evidence of peripheral edema and no calf tenderness noted. VASCULAR: Radial and dorsalis pedis pulses palpated, no evidence of clubbing. NEUROLOGIC: Patient is awake, alert and oriented x3. Results 06/04/17 06:56 06/04/17 00:55 Cardiac Enzymes 06/04/17 06/04/17 06/04/17 Range/Units 00:55 00:55 06:56 AST 34 (17-59) U/L CK-MB (CK-2) 0.7 0.6 (0.0-2.4) ng/mL Troponin I <0.012 <0.012 (0.000-0.034) ng/mL Coagulation 06/04/17 06/04/17 Range/Units 00:55 06:56 PT 10.3 (9.0-12.0) sec APTT 22.8 41.8 H (22.0-30.0) sec CBC 06/04/17 06/04/17 Range/Units 00:55 06:56 WBC 10.6 (3.8-10.6) k/uL RBC 5.49 (4.30-5.90) m/uL Hgb 16.0 (13.0-17.5) gm/dL Hct 49.5 (39.0-53.0) % Plt Count 256 247 (150-450) k/uL Comprehensive Metabolic Panel 06/04/17 Range/Units 00:55 Sodium 137 (137-145) mmol/L Potassium 4.8 (3.5-5.1) mmol/L Chloride 101 (98-107) mmol/L Carbon Dioxide 20 L (22-30) mmol/L BUN 14 (9-20) mg/dL Creatinine 0.80 (0.66-1.25) mg/dL Glucose 272 H (74-99) mg/dL Calcium 9.9 (8.4-10.2) mg/dL AST 34 (17-59) U/L ALT 52 (21-72) U/L Alkaline Phosphatase 114 (38-126) U/L Total Protein 7.5 (6.3-8.2) g/dL Albumin 4.6 (3.5-5.0) g/dL Current Medications Generic Name Dose Route Start Last Admin Trade Name Freq PRN Reason Stop Dose Admin Alprazolam 0.25 mg 06/04/17 10:02 Xanax PO Q6HR PRN Mild Anxiety Alprazolam 0.5 mg 06/04/17 10:02 Xanax PO Q6HR PRN Moderate Anxiety Aspirin 325 mg 06/05/17 09:00 Aspirin PO DAILY GIORGI Atorvastatin Calcium 80 mg 06/04/17 09:00 06/04/17 10:00 Lipitor PO 80 mg DAILY GIORGI Administration Magnesium Sulfate/Dextrose 1 100 mls @ 100 mls/hr 06/04/17 11:32 06/04/17 11: 37 gm/ IV Solution IVPB 06/04/17 12:31 100 mls/hr ONCE ONE Administration Metoprolol Tartrate 25 mg 06/04/17 09:00 06/04/17 10:01 Lopressor PO 25 mg BID GIORGI Administration Morphine Sulfate 4 mg 06/04/17 02:34 Morphine Sulfate (Inj) IV Q5M PRN Chest Pain Nitroglycerin 0.4 mg 06/04/17 02:34 Nitrostat SUBLINGUAL Q5M PRN Chest Pain Intake and Output 06/03/17 06/04/17 06/04/17 22:59 06:59 14:59 Other: Weight 99.79 kg 06/04/17 06:56 06/04/17 00:55 Assessment and Plan Assessment: ASSESSMENT 1. Unstable angina 2. Hypertension 3. Dyslipidemia 4. Diabetes mellitus 5. Family history of heart disease with his mother having had a stent in her 60s. PLAN Obtain 2-D echocardiogram and Doppler study to assess cardiac structure and function. Recommend proceeding with cardiac catheterization secondary to multiple risk factorsn. I have discussed the risks, benefits and alternative therapies for the above-mentioned procedure and for both sedation/analgesia as well as necessary blood product administration, if indicated, as they pertain to this patient. The patient has indicated understanding and acceptance of the risks and procedures discussed. Questions have been answered appropriately and the patient is agreeable to move forward with the above stated procedure. This case has been boarded for noon today with Dr. Suresh. Further recommendations will be based upon clinical course. Thank you kindly for this consultation Nurse Practitioner note has been reviewed, I agree with a documented findings and plan of care. Patient was seen and examined.
[2017-06-04] MEDS ORDERED: LIDOCAINE 2% INJ 20 MG/ML SQ ONE (13:16)
[2017-06-04] MEDS ORDERED: MIDAZOLAM 2 MG/2 ML VIAL IVP ONE (13:17)
[2017-06-04] MEDS ORDERED: SODIUM CHLORIDE 0.9% 500 ML IV ONE (13:18)
[2017-06-04] MEDS: fentaNYL (PF) 50 MCG/ML 2 ML AMP IV ONE ×2 (13:18→14:20)
[2017-06-04] MEDS ORDERED: TICAGRELOR 90 MG TAB PO ONE (13:37)
[2017-06-04] MEDS ORDERED: BIVALIRUDIN BOLUS 250 MG/50 ML IV ONE (13:47)
[2017-06-04] MEDS ORDERED: BIVALIRUDIN 250 MG in SODIUM CHLORIDE 0.9% 50 ML IV ONE ×2 (13:47→14:24)
[2017-06-04] MEDS: NITROGLYCERIN 1000MCG/10ML SYRINGE INTRACORON ONE ×2 (14:11→14:31)
--- NOTE | 2017-06-04 14:37 | CC ---
CARDIAC CATHETERIZATION REPORT Mr. Valverde is a 66-year-old gentleman came to the hospital with the symptoms suggestive of unstable angina syndrome. EKGs and cardiac enzymes were normal. In view of the patient's multiple risk factors, the patient was recommended to have a cardiac catheterization for definitive diagnosis. PROCEDURE: The right groin was prepped and draped in the usual manner and the skin was infiltrated with 2% Xylocaine. The right femoral artery was entered using Seldinger technique and a #6-Canadian sheath was placed in. Selective coronary angiography was then performed in multiple projections. The left ventricular pressures were obtained. Patient tolerated the procedure well. HEMODYNAMICS: Left ventricular end-diastolic pressure is 12-14 mmHg prior to angiography. No gradient is noted across the aortic valve. SELECTIVE CORONARY ANGIOGRAPHY: Left main coronary artery is normally patent. LAD is a good caliber blood vessel, mid LAD is a diffusely disease. In its proximal portion there was a 70% stenosis and distally there is another area of about 85% to 90% hazy looking lesion noted. Beyond that the LAD is a good caliber blood vessel. The circumflex coronary artery gives rise to good-sized obtuse marginal branch. Circumflex coronary artery is branches are normal. Right coronary artery is dominant in distribution and gives rise to the posterior descending artery. Right coronary artery and its branches are normal. FINAL IMPRESSION: This study reveals a diffuse diseased mid LAD with the 2 areas of focal stenosis of 70 and 85%. Circumflex and right coronary artery are normal. RECOMMENDATIONS: Films were reviewed with Dr. Cifuentes. We will proceed with a stent to the LAD. MMODL / IJN: [id number] /
[2017-06-04] MEDS ORDERED: IOHEXOL 350 MG/ML 125ML BOTTLE INJ ONE (14:40)
[2017-06-04] MEDS ORDERED: ATROPINE SULFATE 0.1 MG/ML 10ML SYRINGE IV PRN (14:43)
[2017-06-04] MEDS ORDERED: MAG HYDROX/AL HYDROX/SIMETH 30 ML CUP PO PRN (14:43)
[2017-06-04] MEDS ORDERED: ZOLPIDEM 5 MG TAB PO PRN (14:43)
[2017-06-04] MEDS ORDERED: RX INFO: IV CONTRAST WAS GIVEN 1 EACH MISC MISCELLANE PRN (14:43)
[2017-06-04] MEDS ORDERED: SODIUM CHLORIDE 0.9% 1,000 ML IV SCH (14:45)
[2017-06-04] MEDS ORDERED: MORPHINE ORAL SOLN 10 MG/5 ML CUP PO PRN (14:53)
[2017-06-04] MEDS ORDERED: fentaNYL (PF) 50 MCG/ML 2 ML AMP ONE (15:00)
[2017-06-04 17:09] LABS: Glucose,Whole Blood 180 mg/dL (75-99)
[2017-06-04] MEDS: TICAGRELOR 90 MG TAB PO SCH (19:51)
[2017-06-04 20:56] LABS: Glucose,Whole Blood 229 mg/dL (75-99)
[2017-06-04] MEDS ORDERED: METOPROLOL TARTRATE 25 MG TAB PO SCH (21:00)
--- NOTE | 2017-06-05 02:22 | HP ---
HISTORY AND PHYSICAL CHIEF COMPLAINT: Chest pain. HISTORY OF PRESENT ILLNESS: This 66-year-old gentleman with a past medical history of multiple medical problems including diabetes, hypertension, hyperlipidemia, history of cholecystectomy, tonsillectomy, was admitted with complaints of chest pain. The patient was mainly left- sided chest pain which is heavy in character. The pain was found to be feeling excruciating type of pain also. The patient came to [facility] and was admitted further evaluation and treatment. Troponins are negative. Cardiac catheterization showed diffuse disease in the mid LAD with two areas of focal stenosis 70 to 85% right RCA was within normal limits. Intervention is being planned. No chest pain. No palpitations. No fever PAST MEDICAL HISTORY: History of diabetes, hypertension, hyperlipidemia, history of renal disease. MEDICATIONS: Prior to admission include: 1. Lac-Hydrin 1 daily. 2. Viagra 100 mg p.r.n. 3. Pravachol 40 mg q.h.s. 4. Neurontin 300 mg. 5. Glucophage XR 1000 mg p.o. b.i.d. 6. Zestril 10 mg. 7. Lantus 7 units subcu. 8. Victoza 1.8 daily. ALLERGIES: None. FAMILY HISTORY: History of coronary artery disease, myocardial infarction, history alcohol in the family. SOCIAL HISTORY: No history of smoking. Occasional alcohol intake. REVIEW OF SYSTEMS: ENT: No diminished hearing or vision. CARDIOVASCULAR: As mentioned early. Respiratory: As mentioned earlier. GI no nausea or vomiting. no dysuria. Central nervous system: No numbness or weakness. Allergy/Immunology: No asthma or hayfever. Musculoskeletal: As mentioned earlier. Hematology/Oncology: No history of anemia. ENDOCRINE: Diabetes. Constitutional: As mentioned earlier. Dermatology: Negative. Rheumatology: Negative. Psychiatric: As mentioned earlier. PHYSICAL EXAMINATION: The patient is alert and oriented times three. Pulse 82, blood pressure 143/77 , respiration 18, temp is normal. Pulse ox 97% on room air. HEENT: Conjunctivae normal. Neck: No jugular venous distention. CARDIOVASCULAR: S1, S2 muffled. RESPIRATORY: Breath sounds diminished in the bases. A few scattered rhonchi. No crackles. ABDOMEN: Soft, nontender. No mass palpable. Legs no edema and no swelling. NERVOUS SYSTEM: Higher functions as mentioned earlier. Moves all four limbs. No focal deficits. Lymphatics: No lymph nodes palpable in the neck, axillae or groin. Skin: No ulcer, rash or bleeding. LAB STUDIES: CBC within normal limits. Glucose 270, 182, 90 and troponin is negative. ASSESSMENT: 1. Chest pain possible unstable angina, status post cardiac catheterization and diffuse disease of the mid LAD with some focal narrowing. 2. Diabetes type 2. 3. Hypertension. 4. Hyperlipidemia. 5. History of renal disease. 6. History of nephrolithiasis. 7. History of cholecystectomy. 8. History of bilateral ureter surgery. RECOMMENDATIONS AND DISCUSSION: In this 66-year-old gentleman who presented with multiple medical problems, at this time I recommend to continue current management and symptomatic treatment. Otherwise at this time I would recommend continue with antiplatelet agents and beta blockers. Monitor blood sugars closely. Otherwise the prognosis guarded because of multiple complex medical issues. Discussed with the patient. Further recommendations to follow. We will repeat labs as well. Continue with IV hydration. We will hold the metformin for now currently. MMODL / IJN: [id number] / SAMM
--- NOTE | 2017-06-05 05:16 | PTCA ---
PERCUTANEOUSTRANS CORORONARY ANGIOGRAPHY DATE OF SERVICE: June 04, 2017 PERFORMING PHYSICIAN: Sander Cifuentes MD, belt operator. PROCEDURE PERFORMED Successful stenting of the mid LAD using 2.75 x 28 mm EluNIR drug-eluting stent with good angiographic results. INDICATION: This is a pleasant 66-year-old gentleman with diabetes, hypertension, and dyslipidemia who presented to the hospital with chest discomfort and was seen and evaluated by Dr. Kaiden Suresh who recommended proceeding with a heart catheterization in view of the classical anginal nature of the symptoms. Because of that, the patient underwent a heart catheterization earlier today and that revealed severe disease involving the mid LAD with 2 tandem lesions. Percutaneous coronary intervention was advised. APPROACH: Right common femoral artery. COMPLICATION: None. LEVEL OF SEDATION: Moderate with sedation length of 36 minutes. PROCEDURE DESCRIPTION: Please refer to the diagnostic heart catheterization was performed by Dr. Suresh earlier today. Anticoagulation was initiated using Angiomax. The left main was engaged using JL-4 guiding catheter. A whisper wire was used to wire the LAD. I did balloon angioplasty using 2.5 mm balloon and subsequently I tried to advance 2.75 x 28 mm EluNIR stent but the stent will not cross in spite of using double wire. After that, I was get the stent to the lesion using adjunctive GuideLiner. With that, the stent was positioned under fluoroscopy guidance and deployed under 14 atmospheres for 20 seconds. The following angiogram showed good angiographic results and the procedure was completed without any complication. POSTPROCEDURE MANAGEMENT: 1. Dual anti-platelet therapy. 2. Risk factor modifications. 3. Follow up with the patient. MMODL / IJN: [id number] /
[2017-06-05 05:54] LABS: Glucose,Whole Blood 186 mg/dL (75-99)
[2017-06-05 05:58] LABS: Basophils # (A) 0.1 k/uL (0-0.2); Basophils % (A) 1 %; Eosinophils # (A) 0.2 k/uL (0-0.7); Eosinophils % (A) 2 %; HGB 15.9 gm/dL (13.0-17.5); Lymphocytes # (A) 2.3 k/uL (1.0-4.8); Lymphocytes % (A) 22 %; MCHC 31.8 g/dL (31.0-37.0); Monocytes # (A) 0.6 k/uL (0-1.0); Monocytes % (A) 6 %; Neutrophils # (A) 7.1 k/uL (1.3-7.7); Neutrophils % (A) 68 %; Platelet Count 254 k/uL (150-450); RDW 13.3 % (11.5-15.5); WBC 10.4 k/uL (3.8-10.6)
[2017-06-05 06:11] LABS: Anion Gap 14 mmol/L; Blood Urea Nitrogen 11 mg/dL (9-20); Calcium 9.1 mg/dL (8.4-10.2); Carbon Dioxide 23 mmol/L (22-30); Chloride 102 mmol/L (98-107); Cholesterol 149 mg/dL (<200); Glucose 181 mg/dL (74-99); HDL Cholesterol 43 mg/dL (40-60); LDL Cholesterol,Calculated 74 mg/dL (0-99); Potassium 4.3 mmol/L (3.5-5.1); Sodium 139 mmol/L (137-145); Triglycerides 159 mg/dL (<150)
[2017-06-05] MEDS: INSULIN ASPART 100 UNIT/ML 1 ML 10 ML VIAL SQ SCH ×2 (06:23→11:47)
[2017-06-05] MEDS ORDERED: ASPIRIN 325 MG TAB PO SCH (09:00)
[2017-06-05] MEDS ORDERED: ASPIRIN 81 MG PO SCH (09:00)
[2017-06-05] MEDS ORDERED: NON-FORMULARY DRUG (Liraglutide [Victoza 3-Pak] 1.8 MG) SQ SCH (09:00)
[2017-06-05] MEDS ORDERED: AMMONIUM LACTATE 12% CREAM 140 GM TUBE TOPICAL SCH (09:00)
[2017-06-05] MEDS: ATORVASTATIN 80 MG TAB PO SCH (09:25)
[2017-06-05] MEDS: METOPROLOL TARTRATE 25 MG TAB PO SCH (09:26)
[2017-06-05] MEDS: TICAGRELOR 90 MG TAB PO SCH (09:26)
[2017-06-05 10:35] VITALS: BMI 33.7
[2017-06-05 11:07] VITALS: BP 137/76; PULSE 77; RESP 18; TEMP 98.2
[2017-06-05 11:30] LABS: Glucose,Whole Blood 276 mg/dL (75-99)
--- NOTE | 2017-06-05 12:44 | PN ---
PROGRESS NOTE Mr. Valverde is a 66-year-old gentleman who was seen by Dr. Dee Dee Suresh in the emergency room, underwent a cardiac cath because of his chest pain and the cardiac cath revealed a significant lesion in the mid LAD and he received a drug-eluting stent. He is doing well at this time. His right groin is clean and dry. The pulse is good. He has no chest pain or shortness of breath. Has been ambulating the hallways without symptoms. His vital signs are stable. Laboratory data is good and EKG is unremarkable. Physical exam revealed a blood pressure of 130/70, pulse rate is about 78 per minute. S1-S2 heard normally. Lungs are clear. Abdomen and lower exam unchanged. Plan is to discharge the patient if he remains stable today and he will see Dr. Dee Dee Suresh in 1 week. MMODL / IJN: [id number] /
[2017-06-05 13:43] LABS: Hemoglobin A1C 9.7 % (4.0-6.0)
[2017-06-05] MEDS ORDERED: INSULIN DETEMIR 100 UNIT/ML 10 ML VIAL SQ SCH (21:00)
[2017-06-05] MEDS ORDERED: GABAPENTIN 300 MG CAP PO SCH (21:00)
--- NOTE | 2017-06-05 21:59 | DS ---
DISCHARGE SUMMARY FINAL DIAGNOSES: 1. Chest pain, possible unstable angina, status post cardiac catheterization with diffuse disease of the left anterior descending and left anterior descending stenting. 2. Diabetes mellitus type 2. 3. Hypertension. 4. Hyperlipidemia. 5. History of renal disease. 6. History of nephrolithiasis. 7. History of cholecystectomy. 8. History of bilateral uteric surgery. DISCHARGE DISPOSITION: The patient will be discharged in stable condition with guarded prognosis, after being cleared by Cardiology. HISTORY OF PRESENT ILLNESS: This is a 66-year-old gentleman with a past medical history of multiple medical problems, admitted with chest pain. Myocardial infarction was ruled out. Cardiac catheterization and LAD stenting was also done. Patient improved significantly. On exam, vitals are stable. Cardiovascular S1 and S2 muffled. Abdomen soft. Nervous system, no focal deficits. Accu-Cheks are 196. DISCHARGE INSTRUCTIONS: 1. Diet is cardiac. 2. Activity is limited. 3. Followup with Dr. Caceres in 2 to 3 days. [address] Follow[address] with Dr[address] Kaiden Suresh of Cardiology as advised. MEDICATIONS: 1. Ammonium lactate p.r.n. 2. Aspirin 81 mg p.o. daily. 3. Lipitor 80 mg. 4. Neurontin 300 mg at bedtime. 5. Lantus 70 units subcu at bedtime. 6. Victoza 1.8 mg subcu daily. 7. Zestril 10 mg p.o. 8. Glucophage 1000 mg with meals b.i.d. 9. Lopressor 25 mg p.o. b.i.d. 10.Nitrostat 0.4 mg p.r.n. 11.Brilinta b.i.d. 90 mg p.o. b.i.d. Once again, the patient will be discharged in stable condition with guarded prognosis. MMODL / IJN: [id number] /
== END 2017-06-05 15:17 | disposition home or self-care (01) ==
LOC: EC 00:30 → 3OBS 02:34 → 6SEL 14:40
PROVIDERS: ADMIT Hospitalist; ATTEND Hospitalist
DX: I25.10 Atherosclerotic heart disease of native coronary artery without angina pectoris (principal); R07.9 Chest pain, unspecified; E11.9 Type 2 diabetes mellitus without complications; I10 Essential (primary) hypertension; E78.5 Hyperlipidemia, unspecified; Z90.49 Acquired absence of other specified parts of digestive tract; Z87.442 Personal history of urinary calculi; N28.9 Disorder of kidney and ureter, unspecified; Z79.899 Other long term (current) drug therapy; Z79.84 Long term (current) use of oral hypoglycemic drugs; Z79.4 Long term (current) use of insulin; Z81.1 Family history of alcohol abuse and dependence; Z86.010 Personal history of colon polyps; H91.91 Unspecified hearing loss, right ear; H81.09 Meniere's disease, unspecified ear; R07.2 Precordial pain; R61 Generalized hyperhidrosis; R06.02 Shortness of breath; R11.2 Nausea with vomiting, unspecified
CPT/HCPCS: 96366 ×6; 96376 ×2; 96365 ×2; 99291; 36415; 93005; 93306; 93458; 80061; 80053; 80048; 82550; 82553; 83735; 84484; 85025 ×2; 85049; 85610; 85730; 83036; 71046; G0378 ×3; C9600; C1769 ×3; C1887 ×4; C1725; C1894; C1874; J2001; J2250; J1644 ×2; J3010; J3475; J0583; Q9967

== ENCOUNTER 2017-07-10 07:33 | Observation (INO) | payer OTHER ==
[2017-07-10] MEDS ORDERED: SODIUM CHLORIDE 0.9% 1,000 ML IV STA (07:44)
[2017-07-10] MEDS ORDERED: MORPHINE SULFATE/PF 10MG/10ML VL IVP STA (07:44)
[2017-07-10] MEDS ORDERED: NITROGLYCERIN OINT 1 INCH/GM PACKET TOPICAL STA (07:44)
[2017-07-10] MEDS ORDERED: ONDANSETRON 4 MG/2 ML VIAL IVP STA (07:44)
[2017-07-10 07:55] LABS: Glucose,Whole Blood 224 mg/dL (75-99)
[2017-07-10 08:16] LABS: Basophils # (A) 0.1 k/uL (0-0.2); Basophils % (A) 1 %; Eosinophils # (A) 0.2 k/uL (0-0.7); Eosinophils % (A) 2 %; HCT 47.2 % (39.0-53.0); Lymphocytes % (A) 22 %; MCH 30.4 pg (25.0-35.0); MCHC 36.1 g/dL (31.0-37.0); Mean Platelet Volume 7.3; Monocytes # (A) 0.4 k/uL (0-1.0); Monocytes % (A) 5 %; Neutrophils # (A) 6.4 k/uL (1.3-7.7); Neutrophils % (A) 69 %; Platelet Count 255 k/uL (150-450); RBC 5.62 m/uL (4.30-5.90); RDW 13.5 % (11.5-15.5); WBC 9.2 k/uL (3.8-10.6)
[2017-07-10 08:27] LABS: ALT 64 U/L (21-72); AST 54 U/L (17-59); Albumin 4.6 g/dL (3.5-5.0); Alkaline Phosphatase 116 U/L (38-126); Anion Gap 17 mmol/L; Blood Urea Nitrogen 15 mg/dL (9-20); Calcium 9.9 mg/dL (8.4-10.2); Carbon Dioxide 21 mmol/L (22-30); Chloride 104 mmol/L (98-107); Glucose 228 mg/dL (74-99); Potassium 4.5 mmol/L (3.5-5.1); Sodium 142 mmol/L (137-145); Total Protein 7.4 g/dL (6.3-8.2)
[2017-07-10 08:35] LABS: D-Dimer <0.17 mg/L FEU (<0.60); INR 1.1 (<1.2); Prothrombin Time 10.4 sec (9.0-12.0)
--- NOTE | 2017-07-10 08:35 | XR ---
EXAMINATION TYPE: XR chest 2V DATE OF EXAM: 07/10/2017 COMPARISON: Chest x-ray June 04, 2017. HISTORY: Chest pressure and pain. TECHNIQUE: Frontal and lateral views of the chest are obtained. FINDINGS: There is no focal air space opacity, pleural effusion, or pneumothorax seen. The cardiac silhouette size is within normal limits. The osseous structures are intact. Cholecystectomy clips a re redemonstrated. IMPRESSION: No acute cardiopulmonary process. No significant change from prior.
[2017-07-10 08:50] LABS: Creatine Kinase 95 U/L (55-170)
[2017-07-10 09:04] LABS: Creatine Kinase MB 0.5 ng/mL (0.0-2.4); Troponin I <0.012 ng/mL (0.000-0.034)
[2017-07-10] MEDS ORDERED: MORPHINE ORAL SOLN 10 MG/5 ML CUP PO PRN (10:39)
[2017-07-10] MEDS ORDERED: NITROGLYCERIN SL TABS 0.4 MG TAB SUBLINGUAL PRN ×2 (10:39→10:42)
--- NOTE | 2017-07-10 10:39 | ED ---
Chest Pain HPI - General Chief Complaint: Chest Pain Stated Complaint: Vomiting & chest pain Time Seen by Provider: 07/10/17 07:44 Source: patient Mode of arrival: wheelchair Limitations: no limitations - History of Present Illness Initial Comments: 66 years old male with a history of ischemic heart disease with a stent just a few weeks ago. About chest pain ongoing for 24 hours chest pain right now is 5/ 10 and it gets worse with the deep breaths he denies any fever no chills he is often up sputum denies any abdominal pain no frequency urgency dysuria no symptoms of TIA or CVA - Related Data Home Medications Medication Instructions Recorded Confirmed Insulin Glargine [Lantus] 70 units SQ HS 07/06/16 07/10/17 Ammonium Lactate Cream [Lac-Hydrin 1 applic TOPICAL DAILY 06/04/17 07/10/17 12% Cream] Gabapentin [Neurontin] 300 mg PO HS 06/04/17 07/10/17 Liraglutide [Victoza 3-Gera] 1.8 mg SQ DAILY 06/04/17 07/10/17 Lisinopril [Zestril] 10 mg PO DAILY 06/04/17 07/10/17 metFORMIN HCL ER [Glucophage Xr] 1,000 mg PO AC-BID 06/04/17 07/10/17 Previous Rx's Medication Instructions Recorded Aspirin 81 mg PO DAILY #30 chew 06/05/17 Atorvastatin [Lipitor] 80 mg PO DAILY #30 tab 06/05/17 Metoprolol Tartrate [Lopressor] 25 mg PO BID #60 tab 06/05/17 Nitroglycerin Sl Tabs [Nitrostat] 0.4 mg SUBLINGUAL Q5M PRN #25 tab 06/05/17 Ticagrelor [Brilinta] 90 mg PO BID #60 tab 06/05/17 Allergies Allergy/AdvReac Type Severity Reaction Status Date / Time No Known Allergies Allergy Verified 07/10/17 07:47 Review of Systems ROS Statement: Those systems with pertinent positive or pertinent negative responses have been documented in the HPI. ROS Other: All systems not noted in ROS Statement are negative. EKG Findings - EKG Comments: EKG Findings:: ALLERGIES normal sinus rhythm ventricular rate is 87 [place] interval is 144 QRS duration is 72 QT/QTc is 364/438 review of this EKG does not reveal any ST elevation or ST depression Past Medical History Past Medical History: Diabetes Mellitus, Hyperlipidemia, Hypertension, Renal Disease Additional Past Medical History / Comment(s): IDDM type II, nephrolithiasis- passed stones on his own, meniere's dx, R ear deafness, vertigo, benign colon polyps. History of Any Multi-Drug Resistant Organisms: None Reported Past Surgical History: Cholecystectomy, Tonsillectomy Additional Past Surgical History / Comment(s): Bilateral ureter surgery as a child for misplacement, colonoscopies/benign polypectomies. Past Anesthesia/Blood Transfusion Reactions: Motion Sickness, Postoperative Nausea & Vomiting (PONV) Past Psychological History: No Psychological Hx Reported Smoking Status: Never smoker - Past Family History Father Additional Family Medical History / Comment(s): Father was an alcoholic and pt did not know him well. Mother Family Medical History: Coronary Artery Disease (CAD), Myocardial Infarction ([place] ) Additional Family Medical History / Comment(s): Pt states mother had CAD diagnosed in her 60's with PCI/stents placed. He believes she had a [place] in that same time frame. General Exam - General Exam Comments Initial Comments: General: The patient is awake and alert, in no distress, and does not appear acutely ill. Skin: Skin is warm and dry and no rashes or lesions are noted. Eye: Pupils are equal, round and reactive to light, extra-ocular movements are intact; there is normal conjunctiva bilaterally. Ears, nose, mouth and throat: There are moist mucous membranes and no oral lesions. Neck: The neck is supple, there is no tenderness or JVD. Cardiovascular: There is a regular rate and rhythm. No murmur, rub or gallop is appreciated. Respiratory: To auscultation bilateral, noticed some crackles at the bases Gastrointestinal: Soft, non-distended, non-tender abdomen without masses or organomegaly noted. There is no rebound or guarding present. Bowel sounds are unremarkable. Back: There is no tenderness to palpation in the midline. There is no obvious deformity. Musculoskeletal: Normal ROM, no tenderness, There is no pedal edema. There is no calf tenderness or swelling. No cords were appreciated. Neurological: CN II-XII intact, Cranial nerves III through XII are intact. There are no obvious motor or sensory deficits. Coordination appears grossly intact. Speech is normal. Psychiatric: Cooperative, appropriate mood & affect, normal judgment. Limitations: no limitations Course Vital Signs 07/10/17 07/10/17 07/10/17 07:45 08:01 10:01 Temperature 97.4 F L Pulse Rate 96 87 99 Respiratory 20 16 19 Rate Blood Pressure 143/76 126/69 116/69 O2 Sat by Pulse 98 93 L 96 Oximetry On reassessment noticed that d-dimer, troponin, EKG, CBC, chest x-ray are unremarkable patient be admitted to Dr. Vázquez service for observation and cardiology be consulted, this was discussed with the patient he agrees with Disposition Clinical Impression: Chest pain Disposition: ADMITTED IP TO THIS HOSP Condition: Good Referrals: Nonstaff,Physician [Primary Care Provider] - 1-2 days
[2017-07-10 14:38] LABS: Creatine Kinase 96 U/L (55-170)
[2017-07-10 14:52] LABS: Creatine Kinase MB 0.5 ng/mL (0.0-2.4); Troponin I <0.012 ng/mL (0.000-0.034)
[2017-07-10] MEDS ORDERED: ONDANSETRON 4 MG/2 ML VIAL IVP PRN (15:50)
[2017-07-10 16:51] LABS: Glucose,Whole Blood 290 mg/dL (75-99)
[2017-07-10] MEDS ORDERED: METOPROLOL TARTRATE 25 MG TAB PO STA (17:21)
[2017-07-10] MEDS ORDERED: PANTOPRAZOLE 40 MG/10 ML VIAL IVP SCH (17:30)
[2017-07-10] MEDS: metFORMIN 500 MG TAB PO SCH (18:09)
--- NOTE | 2017-07-10 19:45 | HP ---
HISTORY AND PHYSICAL CHIEF COMPLAINT: Chest pain. HISTORY OF PRESENT ILLNESS: This 66-year-old gentleman with a past medical history of multiple medical problems, including diabetes mellitus, hypertension, hyperlipidemia, history of nephrolithiasis, was recently admitted with chest pain. The patient underwent a cardiac catheterization as well that showed diffuse disease of the left anterior descending, and LAD stenting was done. The patient went home. Currently the patient is complaining of chest pain felt in the anterior part of the chest without much radiation and without any associated symptoms, any palpitations, shortness of breath, hematochezia, melena. The patient was taken to [facility] and admitted for further evaluation and treatment. The blood sugar was found to be elevated. Troponins are less than 0.012 at this time. PAST MEDICAL HISTORY: 1. History of CAD and stent recently. 2. Hypertension. 3. Hyperlipidemia. 4. Diabetes mellitus. 5. Renal disease. 6. Cholecystectomy. 7. Tonsillectomy. HOME MEDICATIONS: 1. Nitroglycerin 0.4 sublingually p.r.n. 2. Glucophage XR 1000 mg p.o. b.i.d. 3. Brilinta 90 mg p.o. b.i.d. 4. Lopressor 25 mg p.o. b.i.d. 5. Zestril 10 mg p.o. daily. 6. Victoza 1.8 subcutaneously daily. 7. Lantus 70 units subcutaneously at bedtime. 8. Neurontin 300 mg at bedtime. 9. Lipitor 80 mg p.o. daily. 10.Aspirin 81 mg daily. 11.Lac-Hydrin 12% one application daily. ALLERGIES: NONE. FAMILY HISTORY: History of coronary artery disease, myocardial infarction in the family. SOCIAL HISTORY: No history of smoking. Occasional alcohol intake. REVIEW OF SYSTEMS: ENT: No diminished hearing. No diminished vision. CARDIOVASCULAR SYSTEM: As mentioned earlier. RESPIRATORY SYSTEM: As mentioned earlier. GI: No nausea, vomiting. : No dysuria or retention. NERVOUS SYSTEM: No numbness, weakness. ALLERGY/IMMUNOLOGY: No asthma, hayfever. MUSCULOSKELETAL: As mentioned earlier. HEMATOLOGY/ONCOLOGY: No history of anemia. ENDOCRINE: Diabetes mellitus. CONSTITUTIONAL: As mentioned earlier. DERMATOLOGY: Negative. RHEUMATOLOGY: Negative. PSYCHIATRY: As mentioned earlier. PHYSICAL EXAMINATION: Patient is alert and oriented x3. Pulse 102, blood pressure 152/86, respiration 18, temperature 97.4, pulse ox 97% on 2 L. HEENT: Conjunctivae normal. Oral mucosa moist. NECK: No jugular venous distention. No carotid bruit. No lymph node enlargement. CARDIOVASCULAR SYSTEM: S1, S2 muffled. No S3. No S4. RESPIRATORY SYSTEM: Breath sounds diminished at the bases. No rhonchi. No crackles. ABDOMEN: Soft, nontender. No mass palpable. LEGS: No edema. No swelling. NERVOUS SYSTEM: Higher functions as mentioned earlier. Moves all 4 limbs. No focal motor or sensory deficit. LYMPHATICS: No lymph node palpable in neck, axillae or groin. SKIN: No ulcer, rash, bleeding. LABS: CBC within normal limits. INR is 1.1. Sodium 142, potassium 4.5, glucose 224. ASSESSMENT: 1. Chest pain, possible unstable angina. 2. History of recent chest pain and cardiac catheterization with left anterior descending coronary artery stenting. 3. Diabetes mellitus, type 2. 4. Hypertension. 5. Hyperlipidemia. 6. History of renal disease. 7. History of nephrolithiasis. 8. History of cholecystectomy. 9. History of bilateral ureter surgery. RECOMMENDATIONS AND DISCUSSION: In this 66-year-old gentleman who presented with multiple complex medical issues, we will monitor the patient closely, continue the current medications, continue with symptomatic treatment. Resume the home medications. Monitor blood sugars closely. Cardiology consultation. Guarded prognosis because of multiple complex medical issues. Further recommendations to follow. A copy of this dictation is being forwarded to Dr. Maier, who is the primary physician at [facility] in the outpatient setting. . EZL / BRIEN: [id number] /
[2017-07-10] MEDS: METOPROLOL TARTRATE 50 MG TAB PO SCH (19:55)
[2017-07-10] MEDS: TICAGRELOR 90 MG TAB PO SCH (19:55)
[2017-07-10 20:50] LABS: Glucose,Whole Blood 250 mg/dL (75-99)
[2017-07-10] MEDS ORDERED: GABAPENTIN 300 MG CAP PO SCH (21:00)
[2017-07-10] MEDS ORDERED: METOPROLOL TARTRATE 25 MG TAB PO SCH (21:00)
[2017-07-10] MEDS ORDERED: INSULIN DETEMIR 100 UNIT/ML 10 ML VIAL SQ SCH (21:00)
[2017-07-10 21:16] LABS: Creatine Kinase 108 U/L (55-170)
[2017-07-10 21:30] LABS: Creatine Kinase MB 0.6 ng/mL (0.0-2.4); Troponin I <0.012 ng/mL (0.000-0.034)
[2017-07-11 03:32] LABS: Hemoglobin A1C 10.4 % (4.0-6.0)
[2017-07-11 05:54] LABS: Glucose,Whole Blood 162 mg/dL (75-99)
[2017-07-11 06:55] LABS: Cholesterol 98 mg/dL (<200); HDL Cholesterol 36 mg/dL (40-60); LDL Cholesterol,Calculated 36 mg/dL (0-99); Triglycerides 132 mg/dL (<150)
[2017-07-11 08:52] VITALS: RESP 16; TEMP 98.1
[2017-07-11] MEDS ORDERED: VICTOZA 1.8MG SQ SCH (09:00)
[2017-07-11] MEDS ORDERED: ATORVASTATIN 80 MG TAB PO SCH (09:00)
[2017-07-11] MEDS ORDERED: AMMONIUM LACTATE 12% CREAM 140 GM TUBE TOPICAL SCH (09:00)
[2017-07-11] MEDS ORDERED: ASPIRIN 81 MG PO SCH (09:00)
[2017-07-11] MEDS ORDERED: LISINOPRIL 10 MG TAB PO SCH (09:00)
--- NOTE | 2017-07-11 09:22 | CONS ---
CONSULTATION CHIEF COMPLAINT: Chest pain. Arnel is a 66-year-old gentleman with history of coronary artery disease, status post angioplasty in May of this year, hypertension, dyslipidemia, diabetes, who presented to hospital complaining of chest pain. He states that he was sitting and watching TV. It started off with nausea vomiting and has had recurrent episodes of vomiting. Subsequently, he had sharp pain at the back of his head due to which he was concerned and came to the ER and got admitted. His EKG did not reveal ischemic changes. Chest x-ray was unremarkable. Three sets of cardiac enzymes are negative and his symptoms have resolved by the time I evaluated him. PAST MEDICAL HISTORY: Significant for coronary artery disease, status post angioplasty, hypertension, diabetes, dyslipidemia. MEDICATIONS: At home include aspirin, Lipitor, Neurontin, insulin, Zestril 10 daily, Lopressor 25 b.i.d., Brilinta 90 b.i.d., Glucophage, and sublingual nitroglycerin. ALLERGIES: There are no known drug allergies. FAMILY HISTORY: Negative for premature coronary artery disease. SOCIAL HISTORY: Negative for smoking, EtOH abuse, or drug abuse. REVIEW OF SYSTEMS: HEENT is unremarkable. Cardiac as described above. Respiratory as described above. GI negative. Genitourinary: Negative. Allergy/Immunology: Negative. Endocrine negative. Skin negative. Musculoskeletal negative. Derm negative. Constitutional negative. Oncological negative. Rest of the system review is not relevant. PHYSICAL EXAM: Comfortable at rest. Vital signs are stable. There is no jugular venous distention. Carotid upstroke is normal. There is no bruit. Chest exam reveals good air entry bilaterally. Heart exam reveals first and second heart sounds. No gallop. No murmur. No rub. Abdomen is soft, nontender. Exam of extremities did not reveal edema. Peripheral pulses are felt. LABS: Show a hemoglobin of 17, platelet count is 255. EKG shows sinus rhythm with PVCs. Cardiac enzymes are negative. ASSESSMENT: 1. Precordial chest pain. 2. Coronary artery disease status post angioplasty. 3. Hypertension. 4. Diabetes. PLAN: Patient's chest discomfort does not sound typical. Could be related to the bouts of vomiting he had. Myocardial infarction is ruled out. I am going to obtain a stress echo on him today. If this is negative, he can be discharged home. If he has ischemia in LAD distribution Dr. Kaiden Suresh will do a cardiac catheterization on him. MMHAYLEE / BRIEN: [id number] /
[2017-07-11] MEDS ORDERED: PANTOPRAZOLE 40 MG TABLET PO SCH (12:00)
[2017-07-11 12:46] VITALS: BP 136/75; PULSE 100
[2017-07-11 12:49] LABS: Glucose,Whole Blood 175 mg/dL (75-99)
--- NOTE | 2017-07-11 13:19 | ECHOS ---
STRESS ECHOCARDIOGRAM DATE OF SERVICE: 07/11/2017 INDICATIONS: Chest pain. MEDICATIONS: BASELINE HEART RATE: 76 BASELINE BLOOD PRESSURE: 161/66 MAXIMUM HEART RATE: 136 MAXIMUM BLOOD PRESSURE: 203/67 85% MPHR: 131 100% MPHR: 154 METS: 8.3 MAXIMUM STAGE REACHED: III TOTAL EXERCISE TIME: 7 minutes CLINICAL INFORMATION: Baseline EKG revealed normal sinus rhythm without significant ST-T changes. Patient walked on standard Fernando protocol for 7 minutes achieved a maximal heart rate of 136 beats per minute which is more than 85% of predicted maximal. Rare isolated PVCs were noted. There was no ST-segment changes to indicate ischemia. Patient did not have angina. This is a negative stress test with fair exercise capacity with isolated PVCs. Baseline echo images revealed normal wall motion and wall thickening of all segments. At peak exercise, there was good augmentation of left ventricular wall motion and wall thickening of all segments suggesting that there is no evidence of any stress-induced ischemia on this study. FINAL IMPRESSION: 1. Fair exercise capacity with a negative stress test by EKG criteria. 2. Normal stress echocardiogram. MMODL / IJN: [id number] /
[2017-07-11] MEDS: metFORMIN 500 MG TAB PO SCH (13:35)
[2017-07-11] MEDS: METOPROLOL TARTRATE 50 MG TAB PO SCH (13:36)
[2017-07-11] MEDS: TICAGRELOR 90 MG TAB PO SCH (13:36)
[2017-07-11 14:31] VITALS: BMI 33.7
--- NOTE | 2017-07-11 23:01 | DS ---
DISCHARGE SUMMARY FINAL DIAGNOSES: 1. Chest pain, possible unstable angina; negative stress echo. 2. History of recent chest pain and cardiac catheterization as well as LAD stenting. 3. Diabetes mellitus, type 2. 4. Hypertension. 5. Hyperlipidemia. 6. History of renal disease. 7. History of nephrolithiasis. 8. History of cholecystectomy. 9. History of bilateral ureter surgery. DISCHARGE DISPOSITION: The patient will be discharged in stable condition with guarded prognosis. Cardiology cleared the patient for discharge. HISTORY OF PRESENT ILLNESS: This 66-year-old gentleman with a past medical history of multiple medical problems was admitted with chest pain. Myocardial infarction was ruled out. Cardiology performed a stress echo which was negative. Patient improved significantly symptom-bowles. On exam, vital signs are stable. CARDIOVASCULAR SYSTEM: S1, S2 muffled. ABDOMEN: Soft. NERVOUS SYSTEM: No focal deficit. DISCHARGE ADVICE AND MEDICATIONS: 1. Diet is cardiac. 2. Activity limited until followup. 3. Follow up with Dr. Maier in 2 to 3 days. 4. Follow up with Cardiology as recommended. 5. Lac-Hydrin 1 application topically. 6. Ecotrin 81 mg p.o. daily. 7. Lipitor 80 mg p.o. daily. 8. Neurontin 300 mg at bedtime. 9. Lantus 70 units subcutaneously at bedtime. 10.Victoza 1.8 subcutaneously daily. 11.Zestril 10 mg p.o. daily. 12.Metformin 1000 mg p.o. b.i.d. 13.Lopressor 50 mg p.o. b.i.d. 14.Nitrostat 0.4 sublingually p.r.n. 15.Brilinta 90 mg p.o. b.i.d. Once again, the patient will be discharged in stable condition with guarded prognosis. MMODL / IJN: [id number] /
== END 2017-07-11 16:13 | disposition home or self-care (01) ==
LOC: EC 07:33 → 3OBS 10:39 → 6SEL 18:58
PROVIDERS: ADMIT Hospitalist; ATTEND Hospitalist
DX: R07.89 Other chest pain (principal); I25.10 Atherosclerotic heart disease of native coronary artery without angina pectoris; Z95.5 Presence of coronary angioplasty implant and graft; I12.9 Hypertensive chronic kidney disease with stage 1 through stage 4 chronic kidney disease, or unspecified chronic kidney disease; N18.9 Chronic kidney disease, unspecified; E11.65 Type 2 diabetes mellitus with hyperglycemia; E11.22 Type 2 diabetes mellitus with diabetic chronic kidney disease; E78.5 Hyperlipidemia, unspecified; H91.91 Unspecified hearing loss, right ear; Z79.4 Long term (current) use of insulin; Z79.82 Long term (current) use of aspirin; Z79.899 Other long term (current) drug therapy; Z79.02 Long term (current) use of antithrombotics/antiplatelets; Z87.442 Personal history of urinary calculi; Z86.010 Personal history of colon polyps; Z90.49 Acquired absence of other specified parts of digestive tract; Z81.1 Family history of alcohol abuse and dependence; Z82.49 Family history of ischemic heart disease and other diseases of the circulatory system
CPT/HCPCS: 99285 ×2; 96374 ×2; 96361 ×9; 96376; 36415; 93005; 93350; 93017; 85379; 80061; 80053; 82550; 82553; 83735; 84484; 85025; 85610; 85730; 83036; 71046; G0378 ×3; J2405; C9113; Q9950

== ENCOUNTER 2017-10-24 20:44 | Emergency (ER) | payer OTHER ==
[2017-10-24 20:57] VITALS: RESP 18
--- NOTE | 2017-10-24 21:18 | ED ---
ENT HPI - General Chief complaint: Dental/Oral Stated complaint: Oral Bleeding Time Seen by Provider: 10/24/17 21:07 Source: patient Mode of arrival: ambulatory Limitations: no limitations - History of Present Illness Initial comments: This patient is 67-year-old man who presents to be evaluated for bleeding from the mouth. Patient states that he had noted after eating tonight that this there was blood from his mouth. She states that he and his had gone out for [place] food and he believe that one of the corners of an eggroll had lacerated his palate. The patient does take ticagrelor, and was concerned about the bleeding that stopping. The patient states that they noted the onset approximately an hour ago. He is not having any symptoms of anemia or hypovolemia. MD complaint: other (Oral bleeding) Onset/Timin -: hour(s) Location: other (Palate) Severity scale (1-10): 0 Consistency: constant Improves with: none Worsens with: none Context-Epistaxis: other (ticagrelor) - Related Data Home Medications Medication Instructions Recorded Confirmed Insulin Glargine [Lantus] 70 units SQ HS 07/06/16 10/24/17 Ammonium Lactate Cream [Lac-Hydrin 1 applic TOPICAL DAILY PRN 06/04/17 10/24/17 12% Cream] Gabapentin [Neurontin] 300 mg PO HS 06/04/17 10/24/17 Lisinopril [Zestril] 10 mg PO DAILY 06/04/17 10/24/17 metFORMIN HCL ER [Glucophage Xr] 1,000 mg PO AC-BID 06/04/17 10/24/17 Atorvastatin [Lipitor] 80 mg PO HS 10/24/17 10/24/17 Metoprolol Tartrate [Lopressor] 50 mg PO HS 10/24/17 10/24/17 Previous Rx's Medication Instructions Recorded Aspirin 81 mg PO DAILY #30 chew 06/05/17 Nitroglycerin Sl Tabs [Nitrostat] 0.4 mg SUBLINGUAL Q5M PRN #25 tab 06/05/17 Ticagrelor [Brilinta] 90 mg PO BID #60 tab 06/05/17 Penicillin V Potassium [Pen Vee K] 500 mg PO QID #20 tablet 10/24/17 Allergies Allergy/AdvReac Type Severity Reaction Status Date / Time No Known Allergies Allergy Verified 10/24/17 21:02 Review of Systems ROS Statement: Those systems with pertinent positive or pertinent negative responses have been documented in the HPI. ROS Other: All systems not noted in ROS Statement are negative. ENT: Reports: as per HPI Respiratory: Denies: dyspnea Cardiovascular: Denies: chest pain, palpitations Hematological/Lymphatic: Reports: as per HPI. Denies: easy bleeding, easy bruising Past Medical History Past Medical History: Chest Pain / Angina, Diabetes Mellitus, Hyperlipidemia, Hypertension, Renal Disease Additional Past Medical History / Comment(s): IDDM type II, nephrolithiasis- passed stones on his own, meniere's dx, R ear deafness, vertigo, benign colon polyps. ischemic heart disease, History of Any Multi-Drug Resistant Organisms: None Reported Past Surgical History: Cholecystectomy, Heart Catheterization With Stent, Tonsillectomy Additional Past Surgical History / Comment(s): cardiac stent to lad,Bilateral ureter surgery as a child for misplacement, colonoscopies/benign polypectomies. Past Anesthesia/Blood Transfusion Reactions: Motion Sickness, Postoperative Nausea & Vomiting (PONV) Date of Last Stent Placement:: 06-04-17 Past Psychological History: No Psychological Hx Reported Smoking Status: Never smoker Past Alcohol Use History: None Reported Past Drug Use History: None Reported - Past Family History Father Additional Family Medical History / Comment(s): Father was an alcoholic and pt did not know him well. Mother Family Medical History: Coronary Artery Disease (CAD), Myocardial Infarction (CO ) Additional Family Medical History / Comment(s): Pt states mother had CAD diagnosed in her 60's with PCI/stents placed. He believes she had a CO in that same time frame. General Exam Limitations: no limitations General appearance: alert, in no apparent distress ENT exam: Present: other (There is a very superficial abrasion to the oral mucosa in the midline of the hard palate, approximately 5-6 mm. Currently no active bleeding.) Neurological exam: Present: alert Course Vital Signs 10/24/17 20:54 Temperature 98.4 F Pulse Rate 90 Respiratory 18 Rate Blood Pressure 121/72 O2 Sat by Pulse 98 Oximetry Medical Decision Making - Medical Decision Making Patient's 67-year-old man presenting with superficial laceration to the oral mucosa over the hard palate. The bleeding that he was having has resolved area we discussed further care and appropriate follow-up for intraoral lacerations. Did provide prescription for antibiotics should any signs or symptoms of infection develop. Disposition Clinical Impression: Laceration of internal mouth Disposition: HOME SELF-CARE Condition: Good Instructions: Laceration (ED) Prescriptions: Penicillin V Potassium [Pen Vee K] 500 mg PO QID #20 tablet Is patient prescribed a controlled substance at d/c from ED?: No Referrals: Nonstaff,Physician [Primary Care Provider] - 1-2 days
[2017-10-24 22:04] VITALS: BP 120/68; PULSE 78; TEMP 98.2
== END 2017-10-24 22:03 | disposition home or self-care (01) ==
LOC: EC 20:44
DX: S01.512A Laceration without foreign body of oral cavity, initial encounter (principal); E11.9 Type 2 diabetes mellitus without complications; E78.5 Hyperlipidemia, unspecified; I10 Essential (primary) hypertension; Z95.5 Presence of coronary angioplasty implant and graft; Z79.4 Long term (current) use of insulin; Z79.899 Other long term (current) drug therapy
CPT/HCPCS: 99283

== ENCOUNTER 2018-01-27 00:12 | Emergency (ER) | payer OTHER, MEDICARE ==
[2018-01-27 00:22] VITALS: TEMP 98.6
--- NOTE | 2018-01-27 00:42 | XR ---
EXAMINATION TYPE: XR KUB DATE OF EXAM: 01/27/2018 COMPARISON: 07/06/2016 HISTORY: Left flank pain TECHNIQUE: 3 views upright FINDINGS: Bowel gas pattern is normal. There is no sign of intestinal obstruction or pneumoperitoneum . Fecal pattern is normal. There are clips from cholecystectomy. There are no pathologic calcificatio ns. There is no sign of a mass. IMPRESSION: Nonacute abdomen.
[2018-01-27] MEDS ORDERED: SODIUM CHLORIDE 0.9% 1,000 ML IV STA (01:27)
[2018-01-27] MEDS ORDERED: ONDANSETRON 4 MG/2 ML VIAL IVP STA (01:27)
[2018-01-27] MEDS ORDERED: MORPHINE SULFATE 4 MG/ML SYRINGE IVP STA (01:27)
--- NOTE | 2018-01-27 01:32 | ED ---
Abdominal Pain HPI - General Chief Complaint: Abdominal Pain Stated Complaint: Kidney Stone Time Seen by Provider: 01/27/18 00:54 Source: patient, RN notes reviewed Mode of arrival: ambulatory Limitations: no limitations - History of Present Illness Initial Comments: This is a 67-year-old male who presents to the emergency department with chief complaint of kidney stone. Patient states he has passed many kidney stones in the past. He states that approximately 4-5 hours ago he developed left flank and lower abdominal pain. Patient states this is exactly the same as previous kidney stones. He denies fevers or chills. Reports nausea and vomiting. States the pain is intermittent and sharp and stabbing in nature. States he's also been having dysuria and hematuria. - Related Data Home Medications Medication Instructions Recorded Confirmed Insulin Glargine [Lantus] 70 units SQ HS 07/06/16 10/24/17 Ammonium Lactate Cream [Lac-Hydrin 1 applic TOPICAL DAILY PRN 06/04/17 10/24/17 12% Cream] Gabapentin [Neurontin] 300 mg PO HS 06/04/17 10/24/17 Lisinopril [Zestril] 10 mg PO DAILY 06/04/17 10/24/17 metFORMIN HCL ER [Glucophage Xr] 1,000 mg PO AC-BID 06/04/17 10/24/17 Atorvastatin [Lipitor] 80 mg PO HS 10/24/17 10/24/17 Metoprolol Tartrate [Lopressor] 50 mg PO HS 10/24/17 10/24/17 Previous Rx's Medication Instructions Recorded Aspirin 81 mg PO DAILY #30 chew 06/05/17 Nitroglycerin Sl Tabs [Nitrostat] 0.4 mg SUBLINGUAL Q5M PRN #25 tab 06/05/17 Ticagrelor [Brilinta] 90 mg PO BID #60 tab 06/05/17 Penicillin V Potassium [Pen Vee K] 500 mg PO QID #20 tablet 10/24/17 Acetaminophen-Codeine 300-30mg 1 tab PO Q4H PRN #10 tablet 01/27/18 [Tylenol #3] Tamsulosin [Flomax] 0.4 mg PO DAILY #7 cap 01/27/18 Allergies Allergy/AdvReac Type Severity Reaction Status Date / Time No Known Allergies Allergy Verified 01/27/18 00:22 Review of Systems ROS Statement: Those systems with pertinent positive or pertinent negative responses have been documented in the HPI. ROS Other: All systems not noted in ROS Statement are negative. Past Medical History Past Medical History: Chest Pain / Angina, Diabetes Mellitus, Hyperlipidemia, Hypertension, Renal Disease Additional Past Medical History / Comment(s): IDDM type II, nephrolithiasis- passed stones on his own, meniere's dx, R ear deafness, vertigo, benign colon polyps. ischemic heart disease,kidney disease History of Any Multi-Drug Resistant Organisms: None Reported Past Surgical History: Cholecystectomy, Heart Catheterization With Stent, Tonsillectomy Additional Past Surgical History / Comment(s): cardiac stent to lad,Bilateral ureter surgery as a child for misplacement, colonoscopies/benign polypectomies. Past Anesthesia/Blood Transfusion Reactions: Motion Sickness, Postoperative Nausea & Vomiting (PONV) Date of Last Stent Placement:: 06-04-17 Past Psychological History: No Psychological Hx Reported Smoking Status: Never smoker Past Alcohol Use History: None Reported Past Drug Use History: None Reported - Past Family History Father Additional Family Medical History / Comment(s): Father was an alcoholic and pt did not know him well. Mother Family Medical History: Coronary Artery Disease (CAD), Myocardial Infarction ([place] ) Additional Family Medical History / Comment(s): Pt states mother had CAD diagnosed in her 60's with PCI/stents placed. He believes she had a [place] in that same time frame. General Exam - General Exam Comments Initial Comments: General: Awake and alert, well-developed; in no apparent distress. HEENT: Head atraumatic, normocephalic. Pupils are equal, round and reactive to light. Extraocular movements intact. Oropharynx moist without erythema or exudate. Neck: Supple. Normal ROM. Cardiovascular: Regular rate and rhythm. No murmurs, rubs or gallops. Chest symmetrical. Respiratory: Lungs clear to auscultation bilaterally. No wheezes, rales or rhonchi. Normal respiratory effort with no use of accessory muscles. Abdomen: Soft, mildly distended, tenderness on palpation of left flank and left lower quadrant with voluntary guarding. No rigidity or rebound. Normal bowel sounds in all 4 quadrants. Musculoskeletal: Normal ROM, no tenderness bilateral upper and lower extremities. Skin: [place], warm and dry without rashes or lesions. Neurological: Alert and oriented x3. CN II-XII grossly intact. Speech is fluent and answers are appropriate. No focal neuro deficits. Psychiatric: Normal mood and affect. No overt signs of depression or anxiety noted. Limitations: no limitations Course Vital Signs 01/27/18 01/27/18 01/27/18 00:18 01:50 01:53 Temperature 98.6 F Pulse Rate 77 Respiratory 16 Rate Blood Pressure 147/83 O2 Sat by Pulse 95 96 Oximetry Medical Decision Making - Medical Decision Making This is a 67-year-old male who presents to the emergency department with chief complaint of kidney stone. Patient reports an extensive history of kidney stones. He states that 4-5 hours prior to arrival he developed pain in the left side of his abdomen that feels the same as previous episodes of passing kidney stones. X-ray KUB revealed no acute abnormalities. There is slightly elevated white count at 14.8 with a left shift at 12.4. CMP reveals no significant abnormalities, although patient's glucose is elevated at 313. Patient states that he did take his medication today but since having a stent placed in April, his blood glucose has not been well controlled. I instructed patient to follow up with his primary care provider regarding this as he may need medication adjustments. UA reveals large blood, greater than 182 red blood cells and 25 white blood cells. Based on patient's history of kidney stones, hematuria and physical exam findings, I have high clinical suspicion that patient is passing a stone. As the KUB did not reveal calcifications and patient has a slightly elevated white blood cell count as well as white blood cells within the urine, computed tomography scan of the abdomen and pelvis obtained to confirm stones. Computed tomography scan of the abdomen and pelvis does confirm multiple kidney stones and left ureteral stones. Patient will be started on Flomax and pain medication. Opioid started talking form is discussed and signed. Patient's vital signs have been stable and he is in no acute distress. He will be discharged home at this time. He is in agreement with plan and voices understanding. All questions have been answered to the best of my ability. Condition upon discharge is good. - Lab Data Result diagrams: 01/27/18 01:45 01/27/18 01:45 Lab Results 01/27/18 01/27/18 01/27/18 Range/Units 00:23 01:45 01:45 WBC 14.8 H (3.8-10.6) k/uL RBC 5.30 (4.30-5.90) m/uL Hgb 15.7 (13.0-17.5) gm/dL Hct 47.6 (39.0-53.0) % MCV 89.8 (80.0-100.0) fL MCH 29.6 (25.0-35.0) pg MCHC 33.0 (31.0-37.0) g/dL RDW 14.1 (11.5-15.5) % Plt Count 262 (150-450) k/uL Neutrophils % 84 % Lymphocytes % 10 % Monocytes % 5 % Eosinophils % 1 % Basophils % 0 % Neutrophils # 12.4 H (1.3-7.7) k/uL Lymphocytes # 1.4 (1.0-4.8) k/uL Monocytes # 0.7 (0-1.0) k/uL Eosinophils # 0.1 (0-0.7) k/uL Basophils # 0.1 (0-0.2) k/uL Sodium 140 (137-145) mmol/L Potassium 5.0 (3.5-5.1) mmol/L Chloride 107 (98-107) mmol/L Carbon Dioxide 23 (22-30) mmol/L Anion Gap 10 mmol/L BUN 16 (9-20) mg/dL Creatinine 0.94 (0.66-1.25) mg/dL Est GFR (CKD-EPI)AfAm >90 (>60 ml/min/1.73 sqM) Est GFR (CKD-EPI)NonAf 84 (>60 ml/min/1.73 sqM) Glucose 316 H (74-99) mg/dL Calcium 9.5 (8.4-10.2) mg/dL Total Bilirubin 0.9 (0.2-1.3) mg/dL AST 36 (17-59) U/L ALT 52 (21-72) U/L Alkaline Phosphatase 137 H (38-126) U/L Total Protein 7.3 (6.3-8.2) g/dL Albumin 4.3 (3.5-5.0) g/dL Amylase 81 (30-110) U/L Lipase 139 (23-300) U/L Urine Color Light Red Urine Appearance Cloudy (Clear) Urine pH 5.0 (5.0-8.0) Ur Specific Bennett 1.025 (1.001-1.035) Urine Protein 1+ H (Negative) Urine Glucose (UA) 4+ H (Negative) Urine Ketones Trace H (Negative) Urine Blood Large H (Negative) Urine Nitrite Negative (Negative) Urine Bilirubin Negative (Negative) Urine Urobilinogen <2.0 (<2.0) mg/dL Ur Leukocyte Esterase Negative (Negative) Urine RBC >182 H (0-5) /hpf Urine WBC 25 H (0-5) /hpf Ur Squamous Epith Cells 1 (0-4) /hpf Urine Mucus Few H (None) /hpf - Radiology Data Radiology results: report reviewed, image reviewed X-ray KUB impression: Nonacute abdomen. CT abdomen and pelvis without contrast findings: There is minimal subsegmental atelectasis at the lung bases. There is no pleural effusion. There are small hiatal hernia. Heart size is normal. There are clips from cholecystectomy. Bowel ducts are not dilated. There is a 1 cm cyst in the left lobe of the liver. Spleen appears normal. There is no pancreatic mass. There is no adrenal mass. There is left-sided perinephric edema. There is left-sided hydronephrosis and hydroureter. There is 4 mm calculus at the left ureterovesical junction. There is probably a second 3 mm calculus in the distal left ureter. There is faint 1 mm calculus upper pole left kidney. There is 2 mm calculus in the interpolar and also lower pole left kidney. There is 5 mm calculus interpolar anterior right kidney. There are a few tiny calculi in the upper pole right kidney. There is no retroperitoneal adenopathy. There is no ascites. There is no mesenteric adenopathy or edema. The appendix appears normal. There are numerous diverticula in the sigmoid colon. There is no sign of diverticulitis. There is no inguinal hernia. The lumbar vertebra have normal alignment. Disc spaces are fairly well-maintained. Posterior elements were intact. Abdominal soft tissues are unremarkable. Impression: Obstructing calculi in the distal left ureter as above. Multiple bilateral renal calculi. Normal appendix. Sigmoid diverticulosis without diverticulitis. Disposition Clinical Impression: Calculus of kidney, Ureterolithiasis Disposition: HOME SELF-CARE Condition: Good Instructions: Kidney Stones (ED), Ureteral Stones (ED) Additional Instructions: Please take medications as prescribed. Please follow up with primary care provider within 1-2 days. Return to emergency department if symptoms should worsen or any concerns arise. Prescriptions: Acetaminophen-Codeine 300-30mg [Tylenol #3] 1 tab PO Q4H PRN #10 tablet PRN Reason: Pain Tamsulosin [Flomax] 0.4 mg PO DAILY #7 cap Is patient prescribed a controlled substance at d/c from ED?: Yes When asked, does pt state using other controlled substances?: No If prescribed controlled substance>3 days was MAPS reviewed?: Prescribed <3 Days Referrals: Nonstaff,Physician [Primary Care Provider] - 1-2 days Time of Disposition: 03:57
[2018-01-27 01:43] LABS: Appearance,Urine Cloudy (Clear); Bilirubin,Urine Negative (Negative); Blood,Urine Large (Negative); Color,Urine Light Red; Glucose,Urine (UA) 4+ (Negative); Ketones,Urine Trace (Negative); Leukocyte Esterase,Urine Negative (Negative); Mucus,Urine Few /hpf; Nitrite,Urine Negative (Negative); Protein,Urine 1+ (Negative); RBC,Urine >182 /hpf (0-5); Specific Gravity,Urine 1.025 (1.001-1.035); Squamous Epithelial Cell,Urine 1 /hpf (0-4); Urobilinogen,Urine <2.0 mg/dL (<2.0); WBC,Urine 25 /hpf (0-5)
[2018-01-27 01:55] VITALS: RESP 16
[2018-01-27 02:07] LABS: Basophils # (A) 0.1 k/uL (0-0.2); Basophils % (A) 0 %; Eosinophils # (A) 0.1 k/uL (0-0.7); Eosinophils % (A) 1 %; HCT 47.6 % (39.0-53.0); HGB 15.7 gm/dL (13.0-17.5); Lymphocytes # (A) 1.4 k/uL (1.0-4.8); Lymphocytes % (A) 10 %; MCH 29.6 pg (25.0-35.0); MCV 89.8 fL (80.0-100.0); Mean Platelet Volume 7.3; Monocytes # (A) 0.7 k/uL (0-1.0); Monocytes % (A) 5 %; Neutrophils # (A) 12.4 k/uL (1.3-7.7); Neutrophils % (A) 84 %; Platelet Count 262 k/uL (150-450); RDW 14.1 % (11.5-15.5); WBC 14.8 k/uL (3.8-10.6)
[2018-01-27 02:19] LABS: ALT 52 U/L (21-72); AST 36 U/L (17-59); Albumin 4.3 g/dL (3.5-5.0); Alkaline Phosphatase 137 U/L (38-126); Amylase 81 U/L (30-110); Anion Gap 10 mmol/L; Blood Urea Nitrogen 16 mg/dL (9-20); Calcium 9.5 mg/dL (8.4-10.2); Carbon Dioxide 23 mmol/L (22-30); Chloride 107 mmol/L (98-107); Glucose 316 mg/dL (74-99); Lipase 139 U/L (23-300); Sodium 140 mmol/L (137-145); Total Bilirubin 0.9 mg/dL (0.2-1.3); Total Protein 7.3 g/dL (6.3-8.2)
--- NOTE | 2018-01-27 03:49 | CT ---
EXAMINATION TYPE: CT abdomen pelvis wo con DATE OF EXAM: 01/27/2018 COMPARISON: 07/06/2016 HISTORY: Prior on syanpse, left flank pain, gross hematuria, history of renal stones, renal stone pro tocol, CT DLP: 728.40 mGycm Automated exposure control for dose reduction was used. TECHNIQUE: Helical acquisition of images was performed from the lung bases through the pelvis. FINDINGS: There is minimal subsegmental atelectasis at the lung bases. There is no pleural effusion. There are small hiatal hernia. Heart size is normal. There are clips from cholecystectomy. Bile ducts are not dilated. There is a 1 cm cyst in the left lo be of the liver. Spleen appears normal. There is no pancreatic mass. There is no adrenal mass. There is left-sided perinephric edema. There is left-sided hydronephrosis a nd hydroureter. There is 4 mm calculus at the left ureterovesical junction. There is probably a secon d 3 mm calculus in the distal left ureter. There is faint 1 mm calculus upper pole left kidney. There is 2 mm calculus in the inter-Oler and also lower pole left kidney. There is 5 mm calculus interpola r anterior right kidney. There are a few tiny calculi in the upper pole right kidney. There is no retroperitoneal adenopathy. There is no ascites. There is no mesenteric adenopathy or kellen ma. The appendix appears normal. There are numerous diverticula in the sigmoid colon. There is no sig n of diverticulitis. There is no inguinal hernia. The lumbar vertebra have normal alignment. Disc spa mike are fairly well-maintained. Posterior elements are intact. Abdominal soft tissues are unremarkabl e. IMPRESSION: OBSTRUCTING CALCULI IN THE DISTAL LEFT URETER ABOVE. MULTIPLE BILATERAL RENAL CALCULI. NORMAL APPE NDIX. SIGMOID DIVERTICULOSIS WITHOUT DIVERTICULITIS.
[2018-01-27 04:11] VITALS: BP 142/78; PULSE 74
== END 2018-01-27 04:10 | disposition home or self-care (01) ==
LOC: EC 00:12
DX: N20.2 Calculus of kidney with calculus of ureter (principal); D72.829 Elevated white blood cell count, unspecified; E11.65 Type 2 diabetes mellitus with hyperglycemia; E78.5 Hyperlipidemia, unspecified; I10 Essential (primary) hypertension; I25.9 Chronic ischemic heart disease, unspecified; Z86.010 Personal history of colon polyps; Z79.4 Long term (current) use of insulin; Z79.899 Other long term (current) drug therapy; Z90.49 Acquired absence of other specified parts of digestive tract; Z95.5 Presence of coronary angioplasty implant and graft; Z98.890 Other specified postprocedural states
CPT/HCPCS: 36415; 80053; 82150; 83690; 85025; 81001; 87086; 74018; 74176; 99284; 96374; 96375; 96361; J2270; J2405

== ENCOUNTER 2019-06-08 03:38 | Observation (INO) | payer BC, MEDICARE, OTHER ==
--- NOTE | 2019-06-08 03:56 | ED ---
Chest Pain HPI - General Chief Complaint: Chest Pain Stated Complaint: Chest Pain Time Seen by Provider: 06/08/19 03:52 Source: patient, family Mode of arrival: ambulatory Limitations: no limitations - History of Present Illness Initial Comments: Patient is 68-year-old man who was awakened from sleep by chest symptoms. He states that this is identical to the previous chest pain he was having when he had a stent placed. Complaint: chest pain Onset/Timin -: hour(s) Onset: awoke with symptoms Pain Location: substernal Pain Radiation: neck Severity: mild Quality: aching Consistency: constant Improves With: nothing Worsens With: nothing Anginal Symptoms: nausea Treatments Prior to Arrival: none - Related Data Home Medications Medication Instructions Recorded Confirmed Insulin Glargine [Lantus] 70 units SQ HS 07/06/16 10/24/17 Ammonium Lactate Cream [Lac-Hydrin 1 applic TOPICAL DAILY PRN 06/04/17 10/24/17 12% Cream] Gabapentin [Neurontin] 300 mg PO HS 06/04/17 10/24/17 Lisinopril [Zestril] 10 mg PO DAILY 06/04/17 10/24/17 metFORMIN HCL ER [Glucophage Xr] 1,000 mg PO AC-BID 06/04/17 10/24/17 Atorvastatin [Lipitor] 80 mg PO HS 10/24/17 10/24/17 Metoprolol Tartrate [Lopressor] 50 mg PO HS 10/24/17 10/24/17 Previous Rx's Medication Instructions Recorded Aspirin 81 mg PO DAILY #30 chew 06/05/17 Nitroglycerin Sl Tabs [Nitrostat] 0.4 mg SUBLINGUAL Q5M PRN #25 tab 06/05/17 Ticagrelor [Brilinta] 90 mg PO BID #60 tab 06/05/17 Penicillin V Potassium [Pen Vee K] 500 mg PO QID #20 tablet 10/24/17 Acetaminophen-Codeine 300-30mg 1 tab PO Q4H PRN #10 tablet 01/27/18 [Tylenol #3] Tamsulosin [Flomax] 0.4 mg PO DAILY #7 cap 01/27/18 Allergies Allergy/AdvReac Type Severity Reaction Status Date / Time No Known Allergies Allergy Verified 06/08/19 03:45 Review of Systems ROS Statement: Those systems with pertinent positive or pertinent negative responses have been documented in the HPI. ROS Other: All systems not noted in ROS Statement are negative. Constitutional: Denies: fever, chills Respiratory: Denies: cough, dyspnea, wheezes Cardiovascular: Reports: chest pain. Denies: palpitations, dyspnea on exertion, edema, syncope Gastrointestinal: Reports: nausea. Denies: abdominal pain, vomiting, melena, hematochezia Genitourinary: Denies: dysuria, hematuria Musculoskeletal: Denies: back pain Skin: Denies: rash Neurological: Denies: headache, weakness, numbness EKG Findings - EKG Results: EKG: interpreted by RYAN SCHMITZ, sinus rhythm (Rate 85 bpm), normal axis, normal QRS, normal ST/T, no acute changes - [place], Pacemaker, Normal: Normal tracing: normal tracing Past Medical History Past Medical History: Chest Pain / Angina, Diabetes Mellitus, Hyperlipidemia, H ypertension, Renal Disease Additional Past Medical History / Comment(s): IDDM type II, nephrolithiasis- passed stones on his own, meniere's dx, R ear deafness, vertigo, benign colon polyps. ischemic heart disease,kidney disease History of Any Multi-Drug Resistant Organisms: None Reported Past Surgical History: Cholecystectomy, Heart Catheterization With Stent, Tonsillectomy Additional Past Surgical History / Comment(s): cardiac stent to lad,Bilateral ureter surgery as a child for misplacement, colonoscopies/benign polypectomies. Past Anesthesia/Blood Transfusion Reactions: Motion Sickness, Postoperative Nausea & Vomiting (PONV) Date of Last Stent Placement:: 06-04-17 Past Psychological History: No Psychological Hx Reported Smoking Status: Never smoker Past Alcohol Use History: None Reported Past Drug Use History: None Reported - Past Family History Father Additional Family Medical History / Comment(s): Father was an alcoholic and pt did not know him well. Mother Family Medical History: Coronary Artery Disease (CAD), Myocardial Infarction ([place]) Additional Family Medical History / Comment(s): Pt states mother had CAD diagnosed in her 60's with PCI/stents placed. He believes she had a [place] in that same time frame. General Exam Limitations: no limitations General appearance: alert, in no apparent distress Head exam: Present: atraumatic, normocephalic Eye exam: Present: normal appearance. Absent: scleral icterus, conjunctival injection ENT exam: Present: normal oropharynx Neck exam: Present: normal inspection Respiratory exam: Present: normal lung sounds bilaterally. Absent: respiratory distress, wheezes, rales, rhonchi, stridor Cardiovascular Exam: Present: regular rate, normal rhythm, normal heart sounds. Absent: systolic murmur, diastolic murmur, rubs, gallop GI/Abdominal exam: Present: soft. Absent: distended, tenderness, guarding, rebound, rigid Extremities exam: Present: normal inspection, normal capillary refill. Absent: pedal edema, calf tenderness Back exam: Present: normal inspection. Absent: CVA tenderness (R), CVA tenderness (L) Neurological exam: Present: alert Skin exam: Present: warm, dry, intact, normal color. Absent: rash Course Vital Signs 06/08/19 06/08/19 06/08/19 03:43 03:45 04:15 Temperature 98.5 F Pulse Rate 86 83 71 Respiratory 20 17 18 Rate Blood Pressure 158/83 132/82 130/73 O2 Sat by Pulse 96 97 Oximetry 06/08/19 06/08/19 06/08/19 04:30 04:45 05:00 Temperature Pulse Rate 72 74 76 Respiratory 18 18 18 Rate Blood Pressure 116/73 112/74 113/73 O2 Sat by Pulse 95 95 94 L Oximetry 06/08/19 06/08/19 05:15 05:32 Temperature Pulse Rate 74 71 Respiratory 18 18 Rate Blood Pressure 118/68 112/74 O2 Sat by Pulse 95 97 Oximetry Disposition Clinical Impression: Chest pain Disposition: ADMITTED IP TO THIS [facility] Condition: Good Instructions (If sedation given, give patient instructions): Chest Pain (ED) Is patient prescribed a controlled substance at d/c from ED?: No Referrals: Nonstaff,Physician [Primary Care Provider] - 1-2 days
[2019-06-08 04:32] LABS: Basophils # (A) 0.1 k/uL (0-0.2); Basophils % (A) 1 %; Eosinophils # (A) 0.4 k/uL (0-0.7); Eosinophils % (A) 4 %; HCT 50.4 % (39.0-53.0); Lymphocytes # (A) 2.8 k/uL (1.0-4.8); Lymphocytes % (A) 32 %; MCH 29.9 pg (25.0-35.0); MCHC 33.7 g/dL (31.0-37.0); MCV 88.7 fL (80.0-100.0); Mean Platelet Volume 7.3; Monocytes # (A) 0.6 k/uL (0-1.0); Monocytes % (A) 6 %; Neutrophils # (A) 4.9 k/uL (1.3-7.7); Neutrophils % (A) 56 %; Platelet Count 261 k/uL (150-450); RBC 5.69 m/uL (4.30-5.90); RDW 13.3 % (11.5-15.5); WBC 8.9 k/uL (3.8-10.6)
[2019-06-08 04:43] LABS: ALT 36 U/L (4-49); AST 37 U/L (17-59); African American GFR (CKD) >90 (>60 ml/min/1.73 sqM); Albumin 4.5 g/dL (3.5-5.0); Alkaline Phosphatase 120 U/L (38-126); Anion Gap 12 mmol/L; Blood Urea Nitrogen 17 mg/dL (9-20); Calcium 9.6 mg/dL (8.4-10.2); Carbon Dioxide 24 mmol/L (22-30); Chloride 104 mmol/L (98-107); Glucose 131 mg/dL (74-99); Non-African American GFR(CKD) >90 (>60 ml/min/1.73 sqM); Sodium 140 mmol/L (137-145); Total Bilirubin 0.4 mg/dL (0.2-1.3); Total Protein 7.3 g/dL (6.3-8.2)
[2019-06-08 05:04] LABS: D-Dimer <0.17 mg/L FEU (<0.60); Partial Thromboplastin Time 23.9 sec (22.0-30.0)
--- NOTE | 2019-06-08 05:30 | XR ---
EXAM: XR Chest, 2 Views CLINICAL HISTORY: Chest pain TECHNIQUE: Frontal and lateral views of the chest. COMPARISON: Chest x-ray dated 07/10/2017 FINDINGS: Lungs: Unremarkable. Pleural space: Unremarkable. Heart: Unremarkable. Mediastinum: Unremarkable. Bones/joints: Unremarkable. IMPRESSION: Normal chest x-rays.
[2019-06-08] MEDS ORDERED: NITROGLYCERIN SL TABS 0.4 MG TAB SUBLINGUAL PRN (05:49)
[2019-06-08] MEDS ORDERED: Acetaminophen-Codeine 300-30mg TAB PO PRN (05:52)
[2019-06-08] MEDS ORDERED: metFORMIN 500 MG TAB PO SCH (07:30)
[2019-06-08] MEDS ORDERED: TICAGRELOR 90 MG TAB PO SCH (09:00)
[2019-06-08] MEDS ORDERED: TAMSULOSIN 0.4 MG CAP.ER.24H PO SCH (09:00)
[2019-06-08 10:50] LABS: Cholesterol 112 mg/dL (<200); HDL Cholesterol 40 mg/dL (40-60); LDL Cholesterol,Calculated 28 mg/dL (0-99); Triglycerides 219 mg/dL (<150)
[2019-06-08 11:48] LABS: Glucose,Whole Blood 97 mg/dL (75-99)
[2019-06-08] MEDS ORDERED: ALPRAZolam 0.5 MG TAB PO PRN (12:15)
[2019-06-08] MEDS ORDERED: ALPRAZolam 0.25 MG TAB PO PRN (12:15)
--- NOTE | 2019-06-08 12:17 | P.CRDCN ---
History of Present Illness History of present illness: HISTORY OF PRESENTING ILLNESS This is a pleasant 68-year-old male past medical history significant for coronary artery disease status post PCI of the LAD, diabetes mellitus, hypertension, obstructive sleep apnea and dyslipidemia. He follows in the office with Dr. Cifuentes. We have been asked to see in consultation for chest pain. States he woke up around 2:00 in the morning feeling acutely short of breath. He wears a CPAP machine and attempted to readjust his mask thinking that this was the cause for his symptoms however he achieved no relief of shortness of breath. He then sat up to try to move around and see if his shortness of breath was positional and he developed a heavy pressure sensation in the left precordial region and started becoming nauseated. His symptoms are similar to how he felt in 2018 when he underwent stenting of the LAD. His symptoms persisted for approximately one hour after he arrived at the emergency department and then slowly started to subside on her own. He is currently seen and examined sitting up in bed in no acute distress and chest pain-free. His breathing has also stabilized. Most recent cardiac catheterization obtained in 2018 revealed left main coronary artery is patent, LAD is diffusely diseased in the proximal portion with a 70% stenosis and distally an area of about 85-90%, circumflex with no significant obstructive disease and RCA with no significant obstructive disease. At that time he underwent successful PCI of LAD. DIAGNOSTICS EKG reveals sinus mechanism with no acute ST or T wave abnormalities noted. Chest xray negative for an acute cardiopulmonary process. Laboratory reviewed, CBC unremarkable, d-dimer less than 0.17, sodium 140, potassium 4, creatinine 0.81, magnesium 2.0, cardiac enzymes negative 2, LDL 28.. Current cardiac medications include aspirin 81 mg daily, lisinopril 10 mg daily, lopressor 50 mg at bedtime and rosuvastatin 10 mg at bedtime. Most recent echocardiogram obtained in 2018 reveals preserved LV systolic function with ejection fraction 55-60%, mild aortic stenosis with a mean gradient of 8 mmHg in the ascending aorta is dilated at 4.1 cm. REVIEW OF SYSTEMS At the time of my exam: CONSTITUTIONAL: Denies fever or chills. CARDIOVASCULAR: Denies chest pain, shortness of breath, orthopnea, PND or palpitations. RESPIRATORY: Denies cough. GASTROINTESTINAL: Denies abdominal pain, diarrhea, constipation, nausea or vomiting. MUSCULOSKELETAL: Denies myalgias. NEUROLOGIC: Denies numbness, tingling or weakness. ENDOCRINE: Denies fatigue, weight change, polydipsia or polyurina. GENITOURINARY: Denies burning, hematuria or urgency with micturation. HEMATOLOGIC: Denies history of anemia or bleeding. PHYSICAL EXAMINATION Blood pressure 120/74 heart rate 74 afebrile and maintaining oxygen saturation on room air. CONSTITUTIONAL: No apparent distress. HEENT: Head is normocephalic. Pupils are equal, round. Sclerae anicteric. Mucous membranes of the mouth are moist. No JVD. No carotid bruit. CHEST EXAMINATION: Lungs are clear to auscultation. No chest wall tenderness is noted on palpation or with deep breathing. HEART EXAMINATION: Regular rate and rhythm. S1, S2 heard. Systolic ejection murmur at the base, no gallops or rub. ABDOMEN: Soft, nontender. Positive bowel sounds. EXTREMITIES: 2+ peripheral pulses, no lower extremity edema and no calf tenderness. NEUROLOGIC EXAMINATION: Patient is awake, alert and oriented x3. ASSESSMENT Unstable angina Coronary artery disease s/p PCI of the LAD Diabetes mellitus Hypertension Dyslipidemia Obstructive sleep apnea PLAN Recommend proceeding with coronary angiography to assess for progression of coronary artery disease. I have discussed the risks, benefits and alternative therapies for the above-mentioned procedure and for both sedation/analgesia as well as necessary blood product administration, if indicated, as they pertain to this patient. The patient has indicated understanding and acceptance of the risks and procedures discussed. Questions have been answered appropriately to the patient and his and he is agreeable to move forward with the above- stated procedure. Apply Nitropaste 0.5 inches to the skin every 6 hours. Check NTproBNP. Procedure has been reported for tomorrow with Dr. Cifuentes. Further recommendations to follow based on clinical course. Thank you kindly for this consultation. Nurse Practitioner note has been reviewed, I agree with a documented findings and plan of care. Patient was seen and examined. Past Medical History Past Medical History: Chest Pain / Angina, Diabetes Mellitus, Hyperlipidemia, Hypertension, Renal Disease Additional Past Medical History / Comment(s): IDDM type II, occasional neuropathy bilateral feet, nephrolithiasis-passed stones on his own, meniere's dx, R ear deafness, vertigo, benign colon polyps, ischemic heart disease History of Any Multi-Drug Resistant Organisms: None Reported Past Surgical History: Cholecystectomy, Heart Catheterization With Stent, Tonsillectomy Additional Past Surgical History / Comment(s): cardiac stent to lad, bilateral ureter surgery as a child for misplacement, colonoscopies/benign polypectomies. Past Anesthesia/Blood Transfusion Reactions: Motion Sickness, Postoperative Nausea & Vomiting (PONV) Date of Last Stent Placement:: 06-04-17 Smoking Status: Never smoker - Past Family History Father Additional Family Medical History / Comment(s): Father was an alcoholic and pt did not know him well. Mother Family Medical History: Coronary Artery Disease (CAD), Myocardial Infarction (ME) Additional Family Medical History / Comment(s): Pt states mother had CAD diagnosed in her 60's with PCI/stents placed. He believes she had a ME in that same time frame. Medications and Allergies Home Medications Medication Instructions Recorded Confirmed Type Insulin Glargine [Lantus] 50 units SQ HS 07/06/16 06/08/19 History Gabapentin [Neurontin] 300 mg PO HS 06/04/17 06/08/19 History Lisinopril [Zestril] 10 mg PO DAILY 06/04/17 06/08/19 History metFORMIN HCL ER [Glucophage Xr] 1,000 mg PO AC-BID 06/04/17 06/08/19 History Aspirin 81 mg PO DAILY #30 chew 06/05/17 06/08/19 Rx Nitroglycerin Sl Tabs [Nitrostat] 0.4 mg SUBLINGUAL Q5M PRN #25 tab 06/05/17 06/08/19 Rx Empagliflozin [Jardiance] 25 mg PO DAILY 06/08/19 06/08/19 History Rosuvastatin Calcium 10 mg PO HS 06/08/19 06/08/19 History Allergies Allergy/AdvReac Type Severity Reaction Status Date / Time No Known Allergies Allergy Verified 06/08/19 07:46 Physical Exam Vitals: Vital Signs Temp Pulse Pulse Resp BP BP Pulse Ox 06/08/19 08:13 97.7 F 71 18 134/74 95 06/08/19 07:24 68 18 102/64 98 06/08/19 05:32 71 18 112/74 97 06/08/19 05:15 74 18 118/68 95 06/08/19 05:00 76 18 113/73 94 L 06/08/19 04:45 74 18 112/74 95 02/25/20 04:30 72 18 116/73 95 06/08/19 04:15 71 18 130/73 06/08/19 03:45 83 17 132/82 97 06/08/19 03:43 98.5 F 86 20 158/83 96 Intake and Output 06/07/19 06/08/19 06/08/19 22:59 06:59 14:59 Other: Weight 95.254 kg 95.6 kg Results 06/08/19 04:17 06/08/19 04:17 Cardiac Enzymes 06/08/19 06/08/19 Range/Units 04:17 04:17 AST 37 (17-59) U/L Troponin I <0.012 (0.000-0.034) ng/mL Coagulation 06/08/19 Range/Units 04:17 PT 10.0 (9.0-12.0) sec APTT 23.9 (22.0-30.0) sec CBC 06/08/19 Range/Units 04:17 WBC 8.9 (3.8-10.6) k/uL RBC 5.69 (4.30-5.90) m/uL Hgb 17.0 (13.0-17.5) gm/dL Hct 50.4 (39.0-53.0) % Plt Count 261 (150-450) k/uL Comprehensive Metabolic Panel 06/08/19 Range/Units 04:17 Sodium 140 (137-145) mmol/L Potassium 4.0 (3.5-5.1) mmol/L Chloride 104 (98-107) mmol/L Carbon Dioxide 24 (22-30) mmol/L BUN 17 (9-20) mg/dL Creatinine 0.81 (0.66-1.25) mg/dL Glucose 131 H (74-99) mg/dL Calcium 9.6 (8.4-10.2) mg/dL AST 37 (17-59) U/L ALT 36 (4-49) U/L Alkaline Phosphatase 120 (38-126) U/L Total Protein 7.3 (6.3-8.2) g/dL Albumin 4.5 (3.5-5.0) g/dL Current Medications Generic Name Dose Route Start Last Admin Trade Name Freq PRN Reason Stop Dose Admin Acetaminophen/Codeine Phosphate 1 each 06/08/19 05:52 Tylenol #3 PO Q4H PRN Pain Aspirin 81 mg 06/09/19 09:00 Aspirin PO DAILY [facility] Atorvastatin Calcium 80 mg 06/08/19 21:00 Lipitor PO HS [facility] Gabapentin 300 mg 06/08/19 21:00 Neurontin PO HS [facility] Insulin Detemir 70 unit 06/08/19 21:00 Levemir SQ HS [facility] Lisinopril 10 mg 06/08/19 09:00 Zestril PO DAILY [facility] Metformin HCl 1,000 mg 06/08/19 07:30 Glucophage PO AC-BID [facility] Metoprolol Tartrate 50 mg 06/08/19 21:00 Lopressor PO HS [facility] Nitroglycerin 0.4 mg 06/08/19 05:49 Nitrostat SUBLINGUAL Q5M PRN Chest Pain Sodium Chloride 10 ml 06/08/19 09:00 Saline Flush IV BID [facility] Tamsulosin HCl 0.4 mg 06/08/19 09:00 Flomax PO DAILY [facility] Intake and Output 06/07/19 06/08/19 06/08/19 22:59 06:59 14:59 Other: Weight 95.254 kg 95.6 kg Patient Weight 06/09/19 06:59 Weight 95.6 kg 06/08/19 04:17 06/08/19 04:17
[2019-06-08] MEDS: LISINOPRIL 10 MG TAB PO SCH (12:19)
[2019-06-08] MEDS: NITROGLYCERIN OINT 1 INCH/GM PACKET TOPICAL SCH ×3 (12:20→23:27)
--- NOTE | 2019-06-08 14:27 | P.HPIM ---
History of Present Illness Patient presents 68-year-old gentleman with known history of coronary disease previous stents. 2 years ago given with complaints of shortness of breath chest pressure-like sensation severe exertional lasted for few hours no relief with nitroglycerin along with nausea denied any lightheadedness denied and diaphoresis. EKG did not show any acute ST-T wave changes troponins were negative patient chest pain is nonpleuritic not associated with food patient had a normal ejection fraction without any heart failure. Review of Systems REVIEW OF SYSTEMS: CONSTITUTIONAL: No fever, no malaise, no fatigue. HEENT: No recent visual problems or hearing problems. Denied any sore throat. CARDIOVASCULAR: No orthopnea, PND, no palpitations, no syncope. PULMONARY: no cough, no hemoptysis. GASTROINTESTINAL: No diarrhea, no nausea, no vomiting, no abdominal pain. NEUROLOGICAL: No headaches, no weakness, no numbness. HEMATOLOGICAL: Denies any bleeding or petechiae. GENITOURINARY: Denies any burning micturition, frequency, or urgency. MUSCULOSKELETAL/RHEUMATOLOGICAL: Denies any joint pain, swelling, or any muscle pain. ENDOCRINE: Denies any polyuria or polydipsia. The rest of the 14-point review of systems is negative. Past Medical History Past Medical History: Chest Pain / Angina, Diabetes Mellitus, Hyperlipidemia, Hypertension, Renal Disease Additional Past Medical History / Comment(s): IDDM type II, occasional neuropath y bilateral feet, nephrolithiasis-passed stones on his own, meniere's dx, R ear deafness, vertigo, benign colon polyps, ischemic heart disease History of Any Multi-Drug Resistant Organisms: None Reported Past Surgical History: Cholecystectomy, Heart Catheterization With Stent, Tonsillectomy Additional Past Surgical History / Comment(s): cardiac stent to lad, bilateral ureter surgery as a child for misplacement, colonoscopies/benign polypectomies. Past Anesthesia/Blood Transfusion Reactions: Motion Sickness, Postoperative Nausea & Vomiting (PONV) Date of Last Stent Placement:: 06-04-17 Smoking Status: Never smoker - Past Family History Father Additional Family Medical History / Comment(s): Father was an alcoholic and pt did not know him well. Mother Family Medical History: Coronary Artery Disease (CAD), Myocardial Infarction (WA) Additional Family Medical History / Comment(s): Pt states mother had CAD diagnosed in her 60's with PCI/stents placed. He believes she had a [place] in that same time frame. Medications and Allergies Home Medications Medication Instructions Recorded Confirmed Type Insulin Glargine [Lantus] 50 units SQ HS 07/06/16 06/08/19 History Gabapentin [Neurontin] 300 mg PO HS 06/04/17 06/08/19 History Lisinopril [Zestril] 10 mg PO DAILY 06/04/17 06/08/19 History metFORMIN HCL ER [Glucophage Xr] 1,000 mg PO AC-BID 06/04/17 06/08/19 History Aspirin 81 mg PO DAILY #30 chew 06/05/17 06/08/19 Rx Nitroglycerin Sl Tabs [Nitrostat] 0.4 mg SUBLINGUAL Q5M PRN #25 tab 06/05/17 06/08/19 Rx Empagliflozin [Jardiance] 25 mg PO DAILY 06/08/19 06/08/19 History Rosuvastatin Calcium 10 mg PO HS 06/08/19 06/08/19 History Allergies Allergy/AdvReac Type Severity Reaction Status Date / Time No Known Allergies Allergy Verified 06/08/19 07:46 Physical Exam Vitals: Vital Signs Temp Pulse Pulse Resp BP BP Pulse Ox 06/08/19 11:29 98.3 F 74 18 120/74 93 L 06/08/19 08:13 97.7 F 71 18 134/74 95 06/08/19 07:24 68 18 102/64 98 06/08/19 05:32 71 18 112/74 97 06/08/19 05:15 74 18 118/68 95 06/08/19 05:00 76 18 113/73 94 L 06/08/19 04:45 74 18 112/74 95 06/08/19 04:30 72 18 116/73 95 06/08/19 04:15 71 18 130/73 06/08/19 03:45 83 17 132/82 97 06/08/19 03:43 98.5 F 86 20 158/83 96 Intake and Output 06/07/19 06/08/19 06/08/19 22:59 06:59 14:59 Intake Total 240 Balance 240 Intake: Oral 240 Other: Voiding Method Toilet Weight 95.254 kg 95.6 kg -Chest pain with associated shortness of breath: Rule out acute current symptoms but there is still a concern about unstable angina patient will undergo cardiac catheterization tomorrow daily evaluated the patient patient had a significant coronary artery disease history please refer to cardiology documentation for further details we ruled out a pulmonary embolism -Type 2 diabetes mellitus hold off metformin patient will be can you done his insulin DOWN THE LANTUS TONIGHT PATIENT WILL BE NOTHING BY MOUTH TONIGHT. HE TAKES 70 UNITS WEEKLY CUT DOWN 50 UNITS. -HYPERTENSION -HYPERLIPIDEMIA For above-mentioned chronic medical problems patient will be started back on appropriate home medications Results CBC & Chem 7: 06/08/19 04:17 06/08/19 04:17 Labs: Abnormal Lab Results - Last 24 Hours (Table) 06/08/19 06/08/19 Range/Units 04:17 04:17 Glucose 131 H (74-99) mg/dL Triglycerides 219 H (<150) mg/dL Thrombosis Risk Factor Assmnt - Choose All That Apply Any of the Below Risk Factors Present?: Yes Each Factor Represents 1 point: Obesity (BMI >25) Other Risk Factors: Yes Each Risk Factor Represents 2 Points: Age 61-74 years Other congenital or acquired thrombophilia - If yes, enter type in comment: No Thrombosis Risk Factor Assessment Total Risk Factor Score: 3 Thrombosis Risk Factor Assessment Level: Moderate Risk
--- NOTE | 2019-06-08 15:43 | ECHOF ---
Referral Reason:cp MEASUREMENTS -------- HEIGHT: 170.2 cm WEIGHT: 95.3 kg BP: IVSd: 1.6 cm (0.6 - 1.1) LVIDd: 3.9 cm (3.9 - 5.3) LVPWd: 1.6 cm (0.6 - 1.1) IVSs: 2.0 cm LVIDs: 1.9 cm LVPWs: 1.9 cm LAESV Index (A-L): 17.52 ml/m Ao Diam: 3.6 cm (2.0 - 3.7) LA Diam: 3.5 cm (2.7 - 3.8) AV Cusp: 1.9 cm (1.5 - 2.6) EPSS: 1.0 cm MV E Eliazar: 0.73 m/s MV DecT: 264 ms MV A Eliazar: 0.91 m/s MV E/A Ratio: 0.80 AV maxP.36 mmHg AV meanP.77 mmHg AR PHT: 729 ms RAP: 5.00 mmHg RVSP: 9.56 mmHg MV EF SLOPE: 54.11 mm/s (70 - 150) MV EXCURSION: 10.41 mm (> 18.000) TAPSE: 24.34 mm FINDINGS -------- Sinus rhythm. This was a technically good study. The left ventricular size is normal. There is moderate concentric left ventricular hypertrophy. O verall left ventricular systolic function is normal with, an EF between 55 - 60 %. The diastolic fi lling pattern is normal for the age of the patient 9.11. The right ventricle is normal in size. The right ventricular systolic function is normal. The left atrial size is normal. Normal LA size by volume 22+/-6 ml/m2. The right atrial size is normal. Aortic valve is trileaflet and is moderately thickened. There is moderate aortic valve sclerosis. There is mild aortic regurgitation. Peak/mean gradient across the Aortic Valve is 16.36mmHg / 9.77 mmHg. The mitral valve is normal. Mild mitral regurgitation is present. The tricuspid valve appears structurally normal. Trace tricuspid regurgitation present. Right page tricular systolic pressure is normal at < 35 mmHg. There is no pulmonic regurgitation present. The aortic root size is normal. Normal inferior vena cava with normal inspiratory collapse consistent with estimated right atrial pre ssure of 5 mmHg. There is no pericardial effusion. CONCLUSIONS -------- 1. Sinus rhythm. 2. This was a technically good study. 3. The left ventricular size is normal. 4. There is moderate concentric left ventricular hypertrophy. 5. Overall left ventricular systolic function is normal with, an EF between 55 - 60 %. 6. The diastolic filling pattern is normal for the age of the patient 9.11 7. The right ventricle is normal in size. 8. The right ventricular systolic function is normal. 9. The left atrial size is normal. 10. Normal LA size by volume 22+/-6 ml/m2. 11. The right atrial size is normal. 12. Aortic valve is trileaflet and is moderately thickened. 13. There is moderate aortic valve sclerosis. 14. There is mild aortic regurgitation. 15. Peak/mean gradient across the Aortic Valve is 16.36mmHg / 9.77mmHg. 16. The mitral valve is normal. 17. Mild mitral regurgitation is present. 18. The tricuspid valve appears structurally normal. 19. Trace tricuspid regurgitation present. 20. Right ventricular systolic pressure is normal at < 35 mmHg. 21. There is no pulmonic regurgitation present. 22. The aortic root size is normal. 23. Normal inferior vena cava with normal inspiratory collapse consistent with estimated right atrial pressure of 5 mmHg. 24. There is no pericardial effusion. SR. DIRECTOR: Oliva Whalen RDCS
[2019-06-08 16:40] LABS: Glucose,Whole Blood 153 mg/dL (75-99)
[2019-06-08 19:54] LABS: Glucose,Whole Blood 196 mg/dL (75-99)
[2019-06-08] MEDS: METOPROLOL TARTRATE 50 MG TAB PO SCH (20:45)
[2019-06-08] MEDS: ATORVASTATIN 80 MG TAB PO SCH (20:45)
[2019-06-08] MEDS: GABAPENTIN 300 MG CAP PO SCH (20:46)
[2019-06-08] MEDS: INSULIN DETEMIR (LEVEMIR) 100 UNIT/ML SYR SQ SCH (20:46)
[2019-06-08] MEDS ORDERED: INSULIN DETEMIR (LEVEMIR) 100 UNIT/ML SYR SQ SCH (21:00)
[2019-06-09] MEDS ORDERED: SODIUM CHLORIDE 0.9% 1,000 ML in EMPTY BAG 1 BAG IV ONE (06:00)
[2019-06-09] MEDS ORDERED: ASPIRIN 325 MG TAB PO ONE (06:00)
[2019-06-09] MEDS: LISINOPRIL 10 MG TAB PO SCH (06:15)
[2019-06-09] MEDS: ATORVASTATIN 80 MG TAB PO SCH (06:15)
[2019-06-09] MEDS: NITROGLYCERIN OINT 1 INCH/GM PACKET TOPICAL SCH ×4 (06:16→23:38)
[2019-06-09 06:40] LABS: Glucose,Whole Blood 116 mg/dL (75-99)
[2019-06-09] MEDS ORDERED: ASPIRIN 81 MG PO SCH (09:00)
[2019-06-09] MEDS ORDERED: ASPIRIN 325 MG TAB PO SCH (09:00)
[2019-06-09 11:39] LABS: Glucose,Whole Blood 158 mg/dL (75-99)
--- NOTE | 2019-06-09 13:40 | P.PN ---
Subjective Patient given a chest pain concerning for unstable angina patient will undergo cardiac catheterization today. Constitutional: Denied any fatigue denied any fever. Cardio vascular: denied any chest pain, palpitations Gastrointestinal denied any nausea vomiting Pulmonary: Denied any shortness of breath cough Neurologic denied any new focal deficits All inpatient medications were reviewed and appropriate changes in these medications as dictated in the interval history and assessment and plan. Objective - Vital Signs Vital signs: Vital Signs Temp 98.1 F 06/09/19 11:22 Pulse 64 06/09/19 11:22 Resp 18 06/09/19 11:22 BP 122/71 06/09/19 11:22 Pulse Ox 94 L 06/09/19 11:22 Intake & Output 06/08/19 06/09/19 06/09/19 18:59 06:59 18:59 Intake Total 676 120 Balance 676 120 Weight 95.6 kg Intake: Oral 476 120 Other 200 Other: Voiding Method Toilet Toilet Toilet # Voids 2 - Exam PHYSICAL EXAMINATION: GENERAL: The patient is alert and oriented x3, not in any acute distress. Well developed, well nourished. HEENT: Pupils are round and equally reacting to light. EOMI. No scleral icterus. No conjunctival pallor. Normocephalic, atraumatic. No pharyngeal erythema. No thyromegaly. CARDIOVASCULAR: S1 and S2 present. No murmurs, rubs, or gallops. PULMONARY: Chest is clear to auscultation, no wheezing or crackles. ABDOMEN: Soft, nontender, nondistended, normoactive bowel sounds. No palpable organomegaly. MUSCULOSKELETAL: No joint swelling or deformity. EXTREMITIES: No cyanosis, clubbing, or pedal edema. NEUROLOGICAL: Gross neurological examination did not reveal any focal deficits. SKIN: No rashes. - Labs CBC & Chem 7: 06/08/19 04:17 06/08/19 04:17 Labs: Abnormal Lab Results - Last 24 Hours (Table) 06/08/19 06/08/19 06/09/19 Range/Units 16:37 19:53 06:39 POC Glucose (mg/dL) 153 H 196 H 116 H (75-99) mg/dL 06/09/19 Range/Units 11:35 POC Glucose (mg/dL) 158 H (75-99) mg/dL Assessment and Plan Plan: -Chest pain with associated shortness of breath: Rule out acute current symptoms but there is still a concern about unstable angina patient will undergo cardiac catheterization today -Type 2 diabetes mellitus hold off metformin and Lantus will be continued -HYPERTENSION -HYPERLIPIDEMIA For above-mentioned chronic medical problems patient will be started back on appropriate home medications
[2019-06-09 16:29] LABS: Glucose,Whole Blood 108 mg/dL (75-99)
[2019-06-09 19:50] LABS: Glucose,Whole Blood 218 mg/dL (75-99)
[2019-06-09] MEDS: INSULIN DETEMIR (LEVEMIR) 100 UNIT/ML SYR SQ SCH (20:33)
[2019-06-09] MEDS: METOPROLOL TARTRATE 50 MG TAB PO SCH (20:33)
[2019-06-09] MEDS: GABAPENTIN 300 MG CAP PO SCH (20:33)
[2019-06-10] MEDS ORDERED: ASPIRIN 325 MG TAB PO ONE (06:00)
[2019-06-10] MEDS: LISINOPRIL 10 MG TAB PO SCH (06:23)
[2019-06-10] MEDS: ATORVASTATIN 80 MG TAB PO SCH (06:23)
[2019-06-10] MEDS: NITROGLYCERIN OINT 1 INCH/GM PACKET TOPICAL SCH ×2 (06:24→11:38)
[2019-06-10 07:05] LABS: Glucose,Whole Blood 138 mg/dL (75-99)
[2019-06-10 07:34] VITALS: RESP 18; TEMP 98.2
[2019-06-10] MEDS ORDERED: IV FLUID CONTINUATION 1,000 ML IV ONE (07:44)
[2019-06-10] MEDS ORDERED: MIDAZOLAM 2 MG/2 ML VIAL IVP ONE (08:15)
[2019-06-10] MEDS ORDERED: LIDOCAINE 1% INJ 10MG/ML (20 ML MDV) SQ ONE (08:16)
[2019-06-10] MEDS ORDERED: VERAPAMIL SYRINGE (5 MG/10 ML) INTRAARTER ONE ×2 (08:17→08:27)
[2019-06-10] MEDS ORDERED: HEPARIN SODIUM 1,000 UN/ML (10ML VL) IV ONE (08:21)
[2019-06-10] MEDS ORDERED: IOPAMIDOL-370 125ML BTL INJ ONE (08:31)
[2019-06-10] MEDS ORDERED: RX INFO: IV CONTRAST WAS GIVEN 1 EACH MISC MISCELLANE PRN (08:31)
[2019-06-10] MEDS ORDERED: SODIUM CHLORIDE 0.9% 1,000 ML IV SCH (08:45)
[2019-06-10 08:53] VITALS: PULSE 75
--- NOTE | 2019-06-10 09:48 | CC ---
CARDIAC CATHETERIZATION REPORT DATE OF SERVICE: June 10, 2019 PERFORMING PHYSICIAN: Sander Cifuentes MD. PROCEDURE PERFORMED: 1. Selective right and left coronary angiogram. 2. Left heart catheterization. INDICATION: This is a very pleasant 68-year-old gentleman with known history of coronary artery disease and prior coronary artery stenting of the LAD who presented to the hospital with chest discomfort and shortness of breath, symptoms reminded him with his previous stenting. Because of that, he was advised to undergo a heart catheterization. APPROACH: Right radial artery. COMPLICATION: None. LEVEL OF SEDATION: Moderate with sedation length of 11 minutes. PROCEDURE DESCRIPTION: After obtaining an informed consent, the patient was brought to the cardiac energy systems laboratory director. The right radial artery was cannulated using micropuncture technique, the micropuncture wire passed easily then I placed a 6-Brazilian sheath at the right radial artery. After that I gave the patient 2 mg of verapamil IA and 10,000 units of heparin IV. Selective right and left coronary angiogram performed using JR4 and JL3.5 catheters. Left heart catheterization was performed using 5-Brazilian pigtail catheter. The procedure was completed without any complication. SELECTIVE CORONARY ANGIOGRAM: 1. The right coronary artery is a large caliber vessel and is a dominant vessel. The RCA in the midportion has intermediate lesion appeared to be in the range of 40%. 2. The left main is angiographically normal. It bifurcates into LCX and LAD. 3. The left circumflex is a large caliber vessel. It is a nondominant vessel. The proximal circumflex appeared to be angiographically normal and gives rise into an OM1 which is intermediate caliber vessel and seems to be angiographically normal. The mid circumflex has mild disease only and gives rise into an OM 2, which is a large caliber vessel and seems to be angiographically normal and the circumflex continues after that as a small caliber vessel in the AV groove. 4. The LAD: The LAD appeared to be angiographically normal. The LAD is stented in the midportion and the stent is patent. The LAD gives rise into 2 diagonal branches in the midportion. They appeared to have mild disease only. HEMODYNAMIC: The LVEDP was 8 to 12 mmHg without significant gradient across aortic valve. CONCLUSION: 1. Intermediate disease involving the mid right coronary artery. 2. Patent stent in the mid left anterior descending artery. POSTPROCEDURE MANAGEMENT: 1. Medical treatment. 2. The patient can be discharged home. MMODL / IJN: [id number] /
[2019-06-10 10:52] VITALS: BP 136/69
[2019-06-10 11:48] LABS: Glucose,Whole Blood 164 mg/dL (75-99)
--- NOTE | 2019-06-10 12:31 | P.DS ---
Providers Date of admission: 06/08/19 05:49 Attending physician: Shamika Vázquez Consults: 06/08/19 05:49 Consult Physician Routine Consulting Provider: Sander Cifuentes Consult Reason/Comments: chest pain Do you want consulting provider notified?: Yes Primary care physician: Physician Nonstaff Hospital Course: 68-year-old male admitted for chest pain underwent cardiac catheterization which showed left occlusion in the mid LAD beyond that no significant stent table occlusive disease was appreciated. Patient chest pain-free and the patient is being discharged today patient came in on very low-dose of metoprolol 12.5 twice a day and was bradycardic at that time his bradycardia at this time resolved but was started on the metoprolol by cardiology my concern is bradycardia again because of which asked him to check the heart rate and blood pressure at home and patient will be resumed on his home dose of metoprolol and if his heart rate significantly goes down and then this needs to be discontinued as well. PHYSICAL EXAMINATION: GENERAL: The patient is alert and oriented x3, not in any acute distress. Well developed, well nourished. HEENT: Pupils are round and equally reacting to light. EOMI. No scleral icterus. No conjunctival pallor. Normocephalic, atraumatic. No pharyngeal erythema. No thyromegaly. CARDIOVASCULAR: S1 and S2 present. No murmurs, rubs, or gallops. PULMONARY: Chest is clear to auscultation, no wheezing or crackles. ABDOMEN: Soft, nontender, nondistended, normoactive bowel sounds. No palpable organomegaly. MUSCULOSKELETAL: No joint swelling or deformity. EXTREMITIES: No cyanosis, clubbing, or pedal edema. NEUROLOGICAL: Gross neurological examination did not reveal any focal deficits. SKIN: No rashes. Assessment and Plan Plan: -Chest pain with associated shortness of breath: Ruled out acute rise syndromes, patient subsequently underwent cardiac catheterization and results of cardiac cath as mentioned above -Type 2 diabetes mellitus -HYPERTENSION -HYPERLIPIDEMIA Patient Condition at Discharge: Good Plan - Discharge Summary Discharge Rx Participant: No New Discharge Prescriptions: New Metoprolol Tartrate [Lopressor] 12.5 mg PO BID #60 dose Continue Insulin Glargine [Lantus] 50 units SQ HS Gabapentin [Neurontin] 300 mg PO HS metFORMIN HCL ER [Glucophage Xr] 1,000 mg PO AC-BID Lisinopril [Zestril] 10 mg PO DAILY Aspirin 81 mg PO DAILY #30 chew Nitroglycerin Sl Tabs [Nitrostat] 0.4 mg SUBLINGUAL Q5M PRN #25 tab PRN Reason: Chest Pain Empagliflozin [Jardiance] 25 mg PO DAILY Rosuvastatin Calcium 10 mg PO HS Discharge Medication List Insulin Glargine [Lantus] 50 units SQ HS 07/06/16 [History] Gabapentin [Neurontin] 300 mg PO HS 06/04/17 [History] Lisinopril [Zestril] 10 mg PO DAILY 06/04/17 [History] metFORMIN HCL ER [Glucophage Xr] 1,000 mg PO AC-BID 06/04/17 [History] Aspirin 81 mg PO DAILY #30 chew 06/05/17 [Rx] Nitroglycerin Sl Tabs [Nitrostat] 0.4 mg SUBLINGUAL Q5M PRN #25 tab 06/05/17 [Rx] Empagliflozin [Jardiance] 25 mg PO DAILY 06/08/19 [History] Rosuvastatin Calcium 10 mg PO HS 06/08/19 [History] Metoprolol Tartrate [Lopressor] 12.5 mg PO BID #60 dose 06/10/19 [Rx] Follow up Appointment(s)/Referral(s): Sander Cifuentes MD [STAFF PHYSICIAN] - 06/18/19 4:45 pm (follow up with Dr. Cifuentes for puncture site check.) Nonstaff,Physician [Primary Care Provider] - 1-2 days Patient Instructions/Handouts: Chest Pain (ED), Left Heart Catheterization (DC) Discharge Disposition: HOME SELF-CARE
[2019-06-11] MEDS ORDERED: ASPIRIN 81 MG PO SCH (09:00)
== END 2019-06-10 14:59 | disposition home or self-care (01) ==
LOC: EC 03:38 → 1SOBS 05:49
PROVIDERS: ADMIT Hospitalist; ATTEND Hospitalist
DX: I25.10 Atherosclerotic heart disease of native coronary artery without angina pectoris (principal); R00.1 Bradycardia, unspecified; E11.9 Type 2 diabetes mellitus without complications; I10 Essential (primary) hypertension; E78.5 Hyperlipidemia, unspecified; H81.09 Meniere's disease, unspecified ear; H91.91 Unspecified hearing loss, right ear; I25.9 Chronic ischemic heart disease, unspecified; G47.33 Obstructive sleep apnea (adult) (pediatric); E78.00 Pure hypercholesterolemia, unspecified; I08.3 Combined rheumatic disorders of mitral, aortic and tricuspid valves; E66.9 Obesity, unspecified; Z68.33 Body mass index [BMI] 33.0-33.9, adult; Z95.5 Presence of coronary angioplasty implant and graft; Z79.4 Long term (current) use of insulin; Z79.899 Other long term (current) drug therapy; Z79.82 Long term (current) use of aspirin; Z87.442 Personal history of urinary calculi; Z86.010 Personal history of colon polyps; Z90.49 Acquired absence of other specified parts of digestive tract; Z90.89 Acquired absence of other organs; Z98.890 Other specified postprocedural states; Z87.898 Personal history of other specified conditions; Z91.89 Other specified personal risk factors, not elsewhere classified; Z99.89 Dependence on other enabling machines and devices; Z81.1 Family history of alcohol abuse and dependence; Z82.49 Family history of ischemic heart disease and other diseases of the circulatory system
CPT/HCPCS: 99285; 36415; 93005; 93306; 93458; 85379; 83880; 80061; 80053; 83735; 84484; 85025; 85610; 85730; 71046; G0378 ×3; C1769 ×3; C1894; J2250; J2001; J1644; Q9967

== ENCOUNTER → 2020-02-28 | Outpatient (CLI) | payer BC, OTHER ==
--- NOTE | 2020-02-28 11:48 | US ---
EXAMINATION TYPE: US prostate transrectal DATE OF EXAM: 02/28/2020 COMPARISON: NONE CLINICAL HISTORY: Calculus of prostate N42.0. This examination was performed using the transrectal probe. EXAM MEASUREMENTS: Gland Size: 5.6 x 3.3 x 4.7 Volume: 45.4 Predicted PSA: 5.4 Actual PSA (if available):Not available at this time Heterogeneous gland without distinct mass. Seminal vesicles are symmetric and unremarkable. IMPRESSION: No evidence for suspicious lesion. Correlate with actual PSA. Predicted PSA = volume x 0.12 ng/ml Calculated Volume = 0.5236 x L x W x H
== END | disposition home or self-care (01) ==
LOC: RADUSWWP 07:18
PROVIDERS: ATTEND Physician Assistant
DX: N42.0 Calculus of prostate (principal)
CPT/HCPCS: 76872

== ENCOUNTER 2020-10-16 19:15 | Observation (INO) | payer OTHER ==
[2020-10-16 19:22] VITALS: TEMP 97.7
--- NOTE | 2020-10-16 19:56 | ED ---
General Adult HPI - General Chief complaint: Chest Pain Stated complaint: Chest pain Time Seen by Provider: 10/16/20 19:21 Source: patient, RN notes reviewed, old records reviewed Mode of arrival: ambulatory Limitations: no limitations - History of Present Illness Initial comments: 70-year-old male history of CAD status post 1 stent presents for evaluation of chest pain. Pain began this evening shortly after the patient had administered a bowel prep for colonoscopy. He began feeling some nausea and lightheadedness. He had several episodes of vomiting and an anterior chest pain with diaphoresis. Pain has resolved. His lightheadedness has improved and he is feeling better. He was transported by EMS, he was given nitroglycerin and aspirin. He does believe that nitroglycerin did help his chest pain. - Related Data Home Medications Medication Instructions Recorded Confirmed Insulin Glargine [Lantus] 50 units SQ HS 07/06/16 10/12/20 Gabapentin [Neurontin] 300 mg PO HS 06/04/17 10/12/20 lisinopriL [Zestril] 10 mg PO DAILY 06/04/17 10/12/20 metFORMIN HCL ER [Glucophage Xr] 1,000 mg PO AC-BID 06/04/17 10/12/20 Empagliflozin [Jardiance] 25 mg PO DAILY 06/08/19 10/12/20 Rosuvastatin Calcium 10 mg PO HS 06/08/19 10/12/20 Metoprolol Tartrate [Lopressor] 25 mg PO BID 09/20/20 10/12/20 Pioglitazone [Actos] 15 mg PO DAILY 09/20/20 10/12/20 Previous Rx's Medication Instructions Recorded Aspirin 81 mg PO DAILY #30 chew 06/05/17 Nitroglycerin Sl Tabs [Nitrostat] 0.4 mg SUBLINGUAL Q5M PRN #25 tab 06/05/17 Allergies Allergy/AdvReac Type Severity Reaction Status Date / Time No Known Allergies Allergy Verified 10/16/20 19:22 Review of Systems ROS Statement: Those systems with pertinent positive or pertinent negative responses have been documented in the HPI. ROS Other: All systems not noted in ROS Statement are negative. Past Medical History Past Medical History: Coronary Artery Disease (CAD), Chest Pain / Angina, Diabetes Mellitus, GERD/Reflux, Hearing Disorder / Deafness, Hyperlipidemia, Hypertension, Osteoarthritis (OA) Additional Past Medical History / Comment(s): IDDM type II, occasional neuropathy bilateral feet, nephrolithiasis-passed stones on his own, meniere's dx, R ear deafness, vertigo, benign colon polyps, ischemic heart disease History of Any Multi-Drug Resistant Organisms: None Reported Past Surgical History: Cholecystectomy, Heart Catheterization With Stent, Tonsillectomy Additional Past Surgical History / Comment(s): cardiac stent to lad, bilateral ureter surgery as a child for misplacement, colonoscopies/benign polypectomies. Past Anesthesia/Blood Transfusion Reactions: Motion Sickness, Postoperative Nausea & Vomiting (PONV) Date of Last Stent Placement:: 06-04-17 Past Psychological History: No Psychological Hx Reported Smoking Status: Never smoker Past Alcohol Use History: None Reported Past Drug Use History: None Reported - Past Family History Father Additional Family Medical History / Comment(s): Father was an alcoholic and pt did not know him well. Mother Family Medical History: Cancer, Coronary Artery Disease (CAD), Myocardial Infarction (IA) Additional Family Medical History / Comment(s): Pt states mother had CAD diagnosed in her 60's with PCI/stents placed. He believes she had a IA in that same time frame. General Exam Limitations: no limitations General appearance: alert, in no apparent distress Head exam: Present: atraumatic, normocephalic Eye exam: Present: normal appearance, PERRL ENT exam: Present: normal exam Neck exam: Present: normal inspection. Absent: tenderness, meningismus Respiratory exam: Present: normal lung sounds bilaterally. Absent: respiratory distress Cardiovascular Exam: Present: regular rate, normal rhythm GI/Abdominal exam: Present: soft. Absent: distended, tenderness, guarding Extremities exam: Present: normal inspection, normal capillary refill. Absent: pedal edema, calf tenderness Neurological exam: Present: alert, oriented X3, CN II-XII intact. Absent: motor sensory deficit Psychiatric exam: Present: normal affect, normal mood Skin exam: Present: warm, dry, intact. Absent: cyanosis, diaphoretic Course Vital Signs 10/16/20 19:18 Temperature 97.7 F Pulse Rate 72 Respiratory 18 Rate Blood Pressure 128/68 O2 Sat by Pulse 98 Oximetry EKG Findings - EKG Comments: EKG Findings:: EKG: Normal sinus rhythm, rate 68, VA interval 146, QRS duration 80, QTC [address] segment elevation Medical Decision Making - Medical Decision Making 7-year-old male presenting with chest pain. Symptoms may be related to colonoscopy prep however his chest pain had some typical features and was relieved by nitroglycerin. He remains chest pain-free while in the emergency department. EKG sinus rhythm without ST segment elevation. Chest x-ray is clear, laboratory testing including initial troponin is negative. He will be kept for serial cardiac enzymes just to rule out an acute cardiac event. Patient will be admitted to [facility] [place] physician. - Lab Data Result diagrams: 10/16/20 19:39 10/16/20 19:39 Lab Results 10/16/20 10/16/20 10/16/20 Range/Units 19:39 19:39 19:39 WBC 13.0 H (3.8-10.6) k/uL RBC 5.52 (4.30-5.90) m/uL Hgb 17.5 (13.0-17.5) gm/dL Hct 50.7 (39.0-53.0) % MCV 91.8 (80.0-100.0) fL MCH 31.6 (25.0-35.0) pg MCHC 34.4 (31.0-37.0) g/dL RDW 13.3 (11.5-15.5) % Plt Count 216 (150-450) k/uL MPV 7.7 Neutrophils % 88 % Lymphocytes % 7 % Monocytes % 4 % Eosinophils % 1 % Basophils % 0 % Neutrophils # 11.4 H (1.3-7.7) k/uL Lymphocytes # 0.9 L (1.0-4.8) k/uL Monocytes # 0.6 (0-1.0) k/uL Eosinophils # 0.1 (0-0.7) k/uL Basophils # 0.1 (0-0.2) k/uL PT 10.9 (9.0-12.0) sec INR 1.0 (<1.2) APTT 22.0 (22.0-30.0) sec Sodium 143 (137-145) mmol/L Potassium 4.5 (3.5-5.1) mmol/L Chloride 109 H (98-107) mmol/L Carbon Dioxide 23 (22-30) mmol/L Anion Gap 11 mmol/L BUN 16 (9-20) mg/dL Creatinine 0.99 (0.66-1.25) mg/dL Est GFR (CKD-EPI)AfAm 89 (>60 ml/min/1.73 sqM) Est GFR (CKD-EPI)NonAf 77 (>60 ml/min/1.73 sqM) Glucose 130 H (74-99) mg/dL Calcium 9.7 (8.4-10.2) mg/dL Magnesium 2.0 (1.6-2.3) mg/dL Total Bilirubin 0.9 (0.2-1.3) mg/dL AST 46 (17-59) U/L ALT 43 (4-49) U/L Alkaline Phosphatase 105 (38-126) U/L Troponin I (0.000-0.034) ng/mL Total Protein 7.7 (6.3-8.2) g/dL Albumin 4.9 (3.5-5.0) g/dL Lipase 47 (23-300) U/L 10/16/20 Range/Units 19:39 WBC (3.8-10.6) k/uL RBC (4.30-5.90) m/uL Hgb (13.0-17.5) gm/dL Hct (39.0-53.0) % MCV (80.0-100.0) fL MCH (25.0-35.0) pg MCHC (31.0-37.0) g/dL RDW (11.5-15.5) % Plt Count (150-450) k/uL MPV Neutrophils % % Lymphocytes % % Monocytes % % Eosinophils % % Basophils % % Neutrophils # (1.3-7.7) k/uL Lymphocytes # (1.0-4.8) k/uL Monocytes # (0-1.0) k/uL Eosinophils # (0-0.7) k/uL Basophils # (0-0.2) k/uL PT (9.0-12.0) sec INR (<1.2) APTT (22.0-30.0) sec Sodium (137-145) mmol/L Potassium (3.5-5.1) mmol/L Chloride (98-107) mmol/L Carbon Dioxide (22-30) mmol/L Anion Gap mmol/L BUN (9-20) mg/dL Creatinine (0.66-1.25) mg/dL Est GFR (CKD-EPI)AfAm (>60 ml/min/1.73 sqM) Est GFR (CKD-EPI)NonAf (>60 ml/min/1.73 sqM) Glucose (74-99) mg/dL Calcium (8.4-10.2) mg/dL Magnesium (1.6-2.3) mg/dL Total Bilirubin (0.2-1.3) mg/dL AST (17-59) U/L ALT (4-49) U/L Alkaline Phosphatase (38-126) U/L Troponin I <0.012 (0.000-0.034) ng/mL Total Protein (6.3-8.2) g/dL Albumin (3.5-5.0) g/dL Lipase (23-300) U/L Disposition Clinical Impression: Chest pain Disposition: ADMITTED IP TO THIS [facility] Condition: Stable Is patient prescribed a controlled substance at d/c from ED?: No Referrals: Mendoza Quarles DO [Primary Care Provider] - 1-2 days Decision to Admit Reason: Admit from EC Decision Date: 10/16/20 Decision Time: 21:18
[2020-10-16 19:58] LABS: Basophils # (A) 0.1 k/uL (0-0.2); Basophils % (A) 0 %; Eosinophils # (A) 0.1 k/uL (0-0.7); Eosinophils % (A) 1 %; HCT 50.7 % (39.0-53.0); HGB 17.5 gm/dL (13.0-17.5); Lymphocytes # (A) 0.9 k/uL (1.0-4.8); Lymphocytes % (A) 7 %; MCH 31.6 pg (25.0-35.0); MCHC 34.4 g/dL (31.0-37.0); MCV 91.8 fL (80.0-100.0); Mean Platelet Volume 7.7; Monocytes # (A) 0.6 k/uL (0-1.0); Monocytes % (A) 4 %; Neutrophils # (A) 11.4 k/uL (1.3-7.7); Neutrophils % (A) 88 %; Platelet Count 216 k/uL (150-450); RBC 5.52 m/uL (4.30-5.90); RDW 13.3 % (11.5-15.5)
[2020-10-16 20:14] LABS: Albumin 4.9 g/dL (3.5-5.0); Calcium 9.7 mg/dL (8.4-10.2); Potassium 4.5 mmol/L (3.5-5.1); Total Bilirubin 0.9 mg/dL (0.2-1.3); Total Protein 7.7 g/dL (6.3-8.2)
[2020-10-16 20:17] LABS: Prothrombin Time 10.9 sec (9.0-12.0)
--- NOTE | 2020-10-16 20:25 | XR ---
EXAMINATION TYPE: XR chest 2V DATE OF EXAM: 10/16/2020 COMPARISON: 06/08/2019 HISTORY: Chest pain TECHNIQUE: FINDINGS: There is no heart failure nor confluent pneumonic infiltrate. Costophrenic angles are clear . There are no hilar masses. There are chest leads. IMPRESSION: No active cardiopulmonary disease. No change.
[2020-10-16] MEDS ORDERED: NALOXONE 0.4 MG/ML 1 ML VIAL IV PRN (21:15)
[2020-10-16] MEDS ORDERED: ACETAMINOPHEN TAB 325 MG TAB PO PRN (21:15)
--- NOTE | 2020-10-17 02:19 | P.HPIM ---
History of Present Illness H&P Date: 10/16/20 Chief Complaint: Chest pain 7-year-old male with CAD, hypertension, diabetes mellitus, hyperlipidemia Patient comes in due to persistent chest pain. Patient reports that he's been doing some remodeling around the house for the past couple weeks however he was feeling exceptionally fatigued and wasn't able to accomplish much this is unusual for him. However today while he was drinking his colonoscopy prep he went through [facility] and then suddenly he started feeling lightheaded with some nausea vomiting and spinning he reports that he has history of Mnire's disease and he felt that he had a flareup he has decreased hearing over the right ear unchanged from baseline However while he was dealing with the symptoms above suddenly started feeling central chest pain sharp in nature 5 out of 10 in severity nonradiating patient started feeling miserable with sweating and some difficulty breathing about an hour into the symptoms his grew very concerned decided to call EMS to transport him to the hospital and Route she received some nitro which relieved the pain immediately and he got some aspirin. Patient does have strong history of coronary artery disease with his most recent's heart cath was done in May 2019 where he was found to have intermediate disease with patent stents Currently patient feels comfortable laying in bed denies any active chest pain Blood work was unremarkable troponins negative EKG no acute ST changes Otherwise patient does not report any exertional dyspnea or chest pain with exertion except for feeling fatigued over the past couple weeks, he denies any recent travel, denies any trauma, denies any hospitalization recently Review of Systems Pertinent positives as noted in HPI. All other systems were reviewed and are negative Past Medical History Past Medical History: Coronary Artery Disease (CAD), Chest Pain / Angina, Diabetes Mellitus, GERD/Reflux, Hearing Disorder / Deafness, Hyperlipidemia, Hypertension, Osteoarthritis (OA) Additional Past Medical History / Comment(s): IDDM type II, occasional neuropathy bilateral feet, nephrolithiasis-passed stones on his own, meniere's dx, R ear deafness, vertigo, benign colon polyps, ischemic heart disease History of Any Multi-Drug Resistant Organisms: None Reported Past Surgical History: Cholecystectomy, Heart Catheterization With Stent, Tonsillectomy Additional Past Surgical History / Comment(s): cardiac stent to lad, bilateral ureter surgery as a child for misplacement, colonoscopies/benign polypectomies. Past Anesthesia/Blood Transfusion Reactions: Motion Sickness, Postoperative Nausea & Vomiting (PONV) Date of Last Stent Placement:: 06-04-17 Past Psychological History: No Psychological Hx Reported Smoking Status: Never smoker Past Alcohol Use History: None Reported Past Drug Use History: None Reported - Past Family History Father Additional Family Medical History / Comment(s): Father was an alcoholic and pt did not know him well. Mother Family Medical History: Cancer, Coronary Artery Disease (CAD), Myocardial Infarction (VT) Additional Family Medical History / Comment(s): Pt states mother had CAD diagnosed in her 60's with PCI/stents placed. He believes she had a VT in that same time frame. Medications and Allergies Home Medications Medication Instructions Recorded Confirmed Type Insulin Glargine [Lantus] 50 units SQ HS 07/06/16 10/16/20 History Gabapentin [Neurontin] 300 mg PO HS 06/04/17 10/16/20 History metFORMIN HCL ER [Glucophage Xr] 500 mg PO BID-W/MEALS 06/04/17 10/16/20 History Aspirin 81 mg PO DAILY #30 chew 06/05/17 10/16/20 Rx Empagliflozin [Jardiance] 25 mg PO DAILY 06/08/19 10/16/20 History Rosuvastatin Calcium 20 mg PO HS 06/08/19 10/16/20 History Pioglitazone [Actos] 15 mg PO DAILY 09/20/20 10/16/20 History Metoprolol Tartrate [Lopressor] 25 mg PO BID 10/16/20 10/16/20 History lisinopriL 20 mg PO DAILY 10/16/20 10/16/20 History traZODone HCL [Desyrel] 50 mg PO HS 10/16/20 10/16/20 History Allergies Allergy/AdvReac Type Severity Reaction Status Date / Time No Known Allergies Allergy Verified 10/16/20 19:22 Physical Exam Vitals: Vital Signs Temp Pulse Pulse Resp BP Pulse Ox 10/16/20 23:58 78 20 150/84 98 10/16/20 23:00 80 18 158/86 98 10/16/20 22:00 74 18 164/79 98 10/16/20 19:40 74 10/16/20 19:18 97.7 F 72 18 128/68 98 Intake and Output 10/16/20 10/16/20 10/17/20 14:59 22:59 06:59 Other: Weight 99.745 kg Constitutional: No acute distress, conversant, pleasant Eyes: Anicteric sclerae, moist conjunctiva, Pupils equal round reactive to light ENMT: NC/AT Oropharynx clear, no erythema, or exudates Neck: Supple, FROM, no masses, or JVD No carotid bruits No thyromegaly Lungs: Clear to auscultation Clear to percussion Normal respiratory effort, no accessory muscle use Cardiovascular: Heart regular in rate and rhythm, No murmurs, gallops, or rubs No peripheral edema Abdominal: Soft Nontender, no guarding, rebound or rigidity Abdomen moving with respiration Normoactive bowel sounds No hepatomegaly, No splenomegaly No palpable mass No abdominal wall hernia noted Skin: Normal temperature, tone, texture, turgor No induration No subcutaneous nodules No rash, lesions No ulcers Extremities: No digital cyanosis No clubbing Pedal pulses intact and symmetrical Radial pulses intact and symmetrical No calf tenderness Psychiatric: Alert and oriented to person, place and time Appropriate affect fair judgement Neuro Muscles Strength 5/5 in all 4 extremities Sensation to light touch grossly present throughout Cranial nerves II-XII grossly intact except for decreased hearing over the right side No focal sensory deficits Lymphatics: no palpable cervical or supraclavicular , or inguinal lymph nodes Results CBC & Chem 7: 10/16/20 19:39 10/16/20 19:39 Labs: Abnormal Lab Results - Last 24 Hours (Table) 10/16/20 10/16/20 Range/Units 19:39 19:39 WBC 13.0 H (3.8-10.6) k/uL Neutrophils # 11.4 H (1.3-7.7) k/uL Lymphocytes # 0.9 L (1.0-4.8) k/uL Chloride 109 H (98-107) mmol/L Glucose 130 H (74-99) mg/dL Assessment and Plan Assessment: Atypical chest pain Nitro when necessary Cardiac monitoring Cardiology consult Trend troponins EKG no acute ST changes Resume cardiac meds Aspirin, statin, beta gregory Chronic conditions Diabetes mellitus since sliding scale, Levemir half the dose daily Hyperlipidemia continue statin Hypertension continue cardiac meds Patient is full code DVT prophylaxis heparin subcu 3 times a day Anticipated length of stay less than 2 midnights Anticipated discharge to home
[2020-10-17] MEDS ORDERED: INSULIN DETEMIR (LEVEMIR) 100 UNIT/ML SYR SQ SCH (07:00)
[2020-10-17 07:18] VITALS: RESP 18
[2020-10-17] MEDS ORDERED: INSULIN ASPART (NovoLOG) 100 UNIT/ML VIAL SQ SCH (07:30)
[2020-10-17] MEDS ORDERED: HEPARIN SODIUM,PORCINE/PF 5,000 UNIT/0.5 ML SYRINGE SQ SCH (08:00)
[2020-10-17 08:17] LABS: Glucose,Whole Blood 112 mg/dL (75-99)
[2020-10-17] MEDS ORDERED: DOBUTamine DRIP for NUC MED 500 MG in DEXTROSE/WATER 1 250ML.BAG IV PRN (08:57)
[2020-10-17] MEDS ORDERED: METOPROLOL TARTRATE 25 MG TAB PO SCH (09:00)
[2020-10-17] MEDS ORDERED: lisinopriL 20 MG TAB PO SCH (09:00)
[2020-10-17] MEDS ORDERED: ASPIRIN 81 MG PO SCH (09:00)
[2020-10-17 09:15] LABS: Basophils # (A) 0.03 X 10*3/uL (0.00-0.10); Basophils % (A) 0.3 %; Eosinophils # (A) 0.02 X 10*3/uL (0.04-0.35); Eosinophils % (A) 0.2 %; HCT 50.1 % (39.6-50.0); HGB 16.4 g/dL (13.0-17.0); Lymphocytes # (A) 1.58 X 10*3/uL (0.90-5.00); MCH 30.1 pg (27.0-32.0); MCHC 32.7 g/dL (32.0-37.0); MCV 92.1 fL (80.0-97.0); Mean Platelet Volume 10.8 fL (9.5-12.2); Monocytes # (A) 0.64 X 10*3/uL (0.20-1.00); Monocytes % (A) 6.5 %; Neutrophils # (A) 7.58 X 10*3/uL (1.80-7.70); Neutrophils % (A) 76.6 %; Platelet Count 236 X 10*3/uL (140-440); RBC 5.44 X 10*6/uL (4.40-5.60); RDW 13.6 % (11.5-14.5); WBC 9.89 X 10*3/uL (4.50-10.00)
[2020-10-17 09:47] LABS: African American GFR (CKD) 99.9 (60.0-200.0); Albumin 4.6 g/dL (3.80-4.90); Anion Gap 12.6 mmol/L (4.00-12.00); Calcium 9.1 mg/dL (8.7-10.3); Carbon Dioxide 21.4 mmol/L (21.6-31.8); Chol/HDL Ratio 2.6; Globulin 2.3 g/dL (1.6-3.3); LDL Cholesterol,Calculated 66.2 mg/dL (0.0-131.0); Non-African American GFR(CKD) 86.2 (60.0-200.0); Potassium 4.1 mmol/L (3.5-5.5); Total Bilirubin 0.9 mg/dL (0.2-1.2); Total Protein 6.9 g/dL (6.2-8.2); VLDL Calculation 13.8 mg/dL (5.00-40.00)
--- NOTE | 2020-10-17 10:42 | P.CRDCN ---
History of Present Illness History of present illness: HISTORY OF PRESENTING ILLNESS This is a pleasant 70-year-old male past medical history significant for coronary artery disease status post PCI of the mid LAD, type 2 diabetes, hypertension, dyslipidemia, meniere's disease, GERD. He follows in the office with Dr. Cifuentes. We have been asked to see in consultation for chest pain. Patient is seen and examined in the emergency department. Patient states that he was scheduled for colonoscopy today. Yesterday he started his prep for his colon oscopy, he states he started to have nausea and vomiting. He states that he did vomit up all his prep. He states after the computed tomography scan of episode of dizziness. An episode of midsternal chest pain. He states that it feels as if his chest is squeezing. His pain is nonexertional, nonradiating. He states that it only started when he was vomiting. He states he was slightly short of breath and did have some diaphoresis. He denies palpitations, lower extremity edema, fatigue, weakness, lightheadedness, syncope. Aggravating factors include vomiting. No specific alleviating factors. He denies symptoms of orthopnea or PND. He is a non-/never smoker. He denies alcohol or illicit drug use. He states his family history includes respond having coronary artery disease and having stents placed in the past. Current home cardiac medications include lisinopril 20 mg daily, metoprolol tartrate 25 mg twice a day, aspirin 81 mg daily, rosuvastatin 20 mg nightly DIAGNOSTICS EKG reveals sinus rhythm, heart rate 68, nonspecific ST-T wave abnormalities. Prior EKG 05/2019 is similar. Last Cardiac Catheterization 05/2019 revealed intermediate disease involving the mid RCA, patent stent in the mid LAD. Medical treatment was advised. Chest xray no acute cardiopulmonary process. Echocardiogram 05/2019 revealed EF 55-60%, moderate aortic valve sclerosis, mild aortic regurgitation with a peak/mean gradient of 16 mmHg/9 mmHg, mild mitral regurgitation, trace trace tricuspid regurgitation Laboratory reviewed, troponin negative 3, sodium 141, potassium 4.1, BUN 18, serum creatinine 0.9, magnesium 2.0, triglycerides 69, cholesterol 1:30, LDL 66, HDL 50 REVIEW OF SYSTEMS At the time of my exam: CONSTITUTIONAL: Denies fever or chills. CARDIOVASCULAR: Positive chest pain, mild shortness of breath Denies orthopnea, PND or palpitations. RESPIRATORY: Denies cough. GASTROINTESTINAL: Positive nausea positive vomiting and positive abdominal pain Denies diarrhea, constipation MUSCULOSKELETAL: Denies myalgias. NEUROLOGIC: Denies numbness, tingling, headacbe or weakness. ENDOCRINE: Denies fatigue, weight change, polydipsia or polyurina. GENITOURINARY: Denies burning, hematuria or urgency with micturation. HEMATOLOGIC: Denies history of anemia or bleeding. PHYSICAL EXAMINATION Blood pressure 134/70 heart rate 84 afebrile and maintaining oxygen saturation 98% on room air CONSTITUTIONAL: No apparent distress. HEENT: Head is normocephalic. Pupils are equal, round. Sclerae anicteric. Mucous membranes of the mouth are moist. No JVD. No carotid bruit. CHEST EXAMINATION: Lungs are clear to auscultation. No chest wall tenderness is noted on palpation or with deep breathing. HEART EXAMINATION: Regular rate and rhythm. S1, S2 heard. Systolic murmur at the right upper sternal border ABDOMEN: Soft, nontender. Positive bowel sounds. EXTREMITIES: 2+ peripheral pulses, no lower extremity edema and no calf tenderness. SKIN: intact NEUROLOGIC EXAMINATION: Patient is awake, alert and oriented x3. ASSESSMENT Chest pain, atypical, acute coronary syndrome has been ruled out. Most likely related to his nausea and vomiting due to colonoscopy prep Coronary artery disease status post prior PCI of the mid LAD Type 2 diabetes Hypertension Dyslipidemia History of GERD History of Mnire's disease History of osteoarthritis PLAN An acute coronary event has been ruled out with no EKG evidence of ischemia and negative cardiac enzymes. Perform Dobutamine stress Echo test to assess for stress induced cardiac ischemia. If abnormal will consider coronary angiography. Continue home cardiac medications, hold metoprolol tartrate only this morning for stress test If stress test is normal, ok to discharge from a cardiology perspective, and follow up outpatient Rest per primary. Follow up with Dr. Cifuentes Thank you kindly for this consultation. Nurse Practitioner note has been reviewed, I agree with a documented findings and plan of care. Patient was seen and examined. Past Medical History Past Medical History: Coronary Artery Disease (CAD), Chest Pain / Angina, Diabetes Mellitus, GERD/Reflux, Hearing Disorder / Deafness, Hyperlipidemia, Hypertension, Osteoarthritis (OA) Additional Past Medical History / Comment(s): IDDM type II, occasional neuropathy bilateral feet, nephrolithiasis-passed stones on his own, meniere's dx, R ear deafness, vertigo, benign colon polyps, ischemic heart disease History of Any Multi-Drug Resistant Organisms: None Reported Past Surgical History: Cholecystectomy, Heart Catheterization With Stent, Tonsillectomy Additional Past Surgical History / Comment(s): cardiac stent to lad, bilateral ureter surgery as a child for misplacement, colonoscopies/benign polypectomies. Past Anesthesia/Blood Transfusion Reactions: Motion Sickness, Postoperative Nausea & Vomiting (PONV) Date of Last Stent Placement:: 06-04-17 Past Psychological History: No Psychological Hx Reported Smoking Status: Never smoker Past Alcohol Use History: None Reported Past Drug Use History: None Reported - Past Family History Father Additional Family Medical History / Comment(s): Father was an alcoholic and pt did not know him well. Mother Family Medical History: Cancer, Coronary Artery Disease (CAD), Myocardial Infarction (AR) Additional Family Medical History / Comment(s): Pt states mother had CAD diagnosed in her 60's with PCI/stents placed. He believes she had a AR in that same time frame. Medications and Allergies Home Medications Medication Instructions Recorded Confirmed Type Insulin Glargine [Lantus] 50 units SQ HS 07/06/16 10/16/20 History Gabapentin [Neurontin] 300 mg PO HS 06/04/17 10/16/20 History metFORMIN HCL ER [Glucophage Xr] 500 mg PO BID-W/MEALS 06/04/17 10/16/20 History Aspirin 81 mg PO DAILY #30 chew 06/05/17 10/16/20 Rx Empagliflozin [Jardiance] 25 mg PO DAILY 06/08/19 10/16/20 History Rosuvastatin Calcium 20 mg PO HS 06/08/19 10/16/20 History Pioglitazone [Actos] 15 mg PO DAILY 09/20/20 10/16/20 History Metoprolol Tartrate [Lopressor] 25 mg PO BID 10/16/20 10/16/20 History lisinopriL 20 mg PO DAILY 10/16/20 10/16/20 History traZODone HCL [Desyrel] 50 mg PO HS 10/16/20 10/16/20 History Allergies Allergy/AdvReac Type Severity Reaction Status Date / Time No Known Allergies Allergy Verified 10/16/20 19:22 Physical Exam Vitals: Vital Signs Temp Pulse Pulse Resp BP Pulse Ox 10/16/20 23:58 78 20 150/84 98 10/16/20 23:00 80 18 158/86 98 10/16/20 22:00 74 18 164/79 98 10/16/20 19:40 74 10/16/20 19:18 97.7 F 72 18 128/68 98 Intake and Output 10/16/20 10/16/20 10/17/20 14:59 22:59 06:59 Other: Weight 99.745 kg Results 10/17/20 03:42 10/17/20 03:42 Cardiac Enzymes 10/16/20 10/16/20 10/16/20 Range/Units 19:39 19:39 22:17 AST 46 (17-59) U/L Troponin I <0.012 <0.012 (0.000-0.034) ng/mL 10/17/20 Range/Units 01:17 AST (17-59) U/L Troponin I <0.012 (0.000-0.034) ng/mL Coagulation 10/16/20 Range/Units 19:39 PT 10.9 (9.0-12.0) sec APTT 22.0 (22.0-30.0) sec CBC 10/16/20 Range/Units 19:39 WBC 13.0 H (3.8-10.6) k/uL RBC 5.52 (4.30-5.90) m/uL Hgb 17.5 (13.0-17.5) gm/dL Hct 50.7 (39.0-53.0) % Plt Count 216 (150-450) k/uL Comprehensive Metabolic Panel 10/16/20 Range/Units 19:39 Sodium 143 (137-145) mmol/L Potassium 4.5 (3.5-5.1) mmol/L Chloride 109 H (98-107) mmol/L Carbon Dioxide 23 (22-30) mmol/L BUN 16 (9-20) mg/dL Creatinine 0.99 (0.66-1.25) mg/dL Glucose 130 H (74-99) mg/dL Calcium 9.7 (8.4-10.2) mg/dL AST 46 (17-59) U/L ALT 43 (4-49) U/L Alkaline Phosphatase 105 (38-126) U/L Total Protein 7.7 (6.3-8.2) g/dL Albumin 4.9 (3.5-5.0) g/dL Current Medications Generic Name Dose Route Start Last Admin Trade Name Onielq PRN Reason Stop Dose Admin Acetaminophen 650 mg 10/16/20 21:15 Acetaminophen Tab 325 Mg Tab PO Q6HR PRN Mild Pain or Fever > 100.5 Aspirin 81 mg 10/17/20 09:00 Aspirin 81 Mg PO DAILY GIORGI Atorvastatin Calcium 40 mg 10/17/20 21:00 Atorvastatin 40 Mg Tab PO HS GIORGI Gabapentin 300 mg 10/17/20 21:00 Gabapentin 300 Mg Cap PO HS GIORGI Heparin Sodium (Porcine) 5,000 unit 10/17/20 08:00 Heparin Sodium,Porcine/Pf 5,000 Unit/0.5 Ml Syringe SQ Q8HR [facility] Insulin Aspart 0 unit 10/17/20 07:30 Insulin Aspart (Novolog) 100 Unit/Ml Vial SQ ACHS [facility] Protocol Insulin Detemir 25 unit 10/17/20 07:00 Insulin Detemir (Levemir) 100 Unit/Ml Syr SQ DAILY@0700 [facility] Lisinopril 20 mg 10/17/20 09:00 Lisinopril 20 Mg Tab PO DAILY GIORGI Metoprolol Tartrate 25 mg 10/17/20 09:00 Metoprolol Tartrate 25 Mg Tab PO BID GIORGI Naloxone HCl 0.2 mg 10/16/20 21:15 Naloxone 0.4 Mg/Ml 1 Ml Vial IV Q2M PRN Opioid Reversal Trazodone HCl 50 mg 10/17/20 21:00 Trazodone Hcl 50 Mg Tab PO HS [facility] Intake and Output 10/16/20 10/16/20 10/17/20 14:59 22:59 06:59 Other: Weight 99.745 kg Patient Weight 10/17/20 06:59 Weight 99.745 kg 10/16/20 19:39 10/16/20 19:39
[2020-10-17 13:19] VITALS: BP 139/78; PULSE 77
--- NOTE | 2020-10-17 13:42 | P.DS ---
Providers Date of admission: 10/16/20 21:15 Expected date of discharge: 10/17/20 Attending physician: Nelly Oglesby MD Consults: 10/16/20 21:16 Consult Physician Routine Consulting Provider: Khushi Maciel Consult Reason/Comments: CP Do you want consulting provider notified?: Yes Primary care physician: [facility] Course: This is a 70-year-old male with past medical history significant for carotid artery disease with prior PCI, type 2 diabetes, hypertension, and hyperlipidemia who presented to the emergency room with chest pain. Patient was evaluated in the ER and placed on observation. ACS ruled out. Serial troponin were negative. Patient was seen and evaluated by cardiology. He underwent cardiac stress test that was reported negative. Patient was cleared by cardiology for discharge. Plan to follow-up in the office as directed. Patient will be discharged in a stable condition. He was seen and evaluated by me today. He is chest pain-free. Physical exam, General: The patient is awake and alert, in no distress Eye: there is normal conjunctiva bilaterally. Neck: The neck is supple, there is no JVD. Cardiovascular: Normal S1-S2, no S3-S4, no murmurs. Respiratory: Lungs clear to auscultation bilaterally Gastrointestinal: Abdomen is soft, nontender Musculoskeletal: There is no pedal edema. Neurological:. Speech is normal. Skin: Skin is warm and dry Patient will be discharged home in a stable condition. For further details about this hospitalization please refer to the electronic chart. Time spent on discharge > 30 minutes including counseling and coordination of care Patient Condition at Discharge: Stable Plan - Discharge Summary New Discharge Prescriptions: Continue Insulin Glargine [Lantus] 50 units SQ HS Gabapentin [Neurontin] 300 mg PO HS metFORMIN HCL ER [Glucophage Xr] 500 mg PO BID-W/MEALS Aspirin 81 mg PO DAILY #30 chew Empagliflozin [Jardiance] 25 mg PO DAILY Rosuvastatin Calcium 20 mg PO HS traZODone HCL [Desyrel] 50 mg PO HS Pioglitazone [Actos] 15 mg PO DAILY lisinopriL 20 mg PO DAILY Metoprolol Tartrate [Lopressor] 25 mg PO BID Discharge Medication List Insulin Glargine [Lantus] 50 units SQ HS 07/06/16 [History] Gabapentin [Neurontin] 300 mg PO HS 06/04/17 [History] metFORMIN HCL ER [Glucophage Xr] 500 mg PO BID-W/MEALS 06/04/17 [History] Aspirin 81 mg PO DAILY #30 chew 06/05/17 [Rx] Empagliflozin [Jardiance] 25 mg PO DAILY 06/08/19 [History] Rosuvastatin Calcium 20 mg PO HS 06/08/19 [History] Pioglitazone [Actos] 15 mg PO DAILY 09/20/20 [History] Metoprolol Tartrate [Lopressor] 25 mg PO BID 10/16/20 [History] lisinopriL 20 mg PO DAILY 10/16/20 [History] traZODone HCL [Desyrel] 50 mg PO HS 10/16/20 [History] Follow up Appointment(s)/Referral(s): Sander Cifuentes MD [STAFF PHYSICIAN] - 2 Weeks Mendoza Quarles DO [Primary Care Provider] - 1-2 days Discharge Disposition: HOME SELF-CARE
--- NOTE | 2020-10-17 13:45 | ECHOS ---
STRESS ECHOCARDIOGRAM LUMASON: Vial INDICATIONS: Chest pain MEDICATIONS: BASELINE HEART RATE: 75 BASELINE BLOOD PRESSURE: 145/82 MAXIMUM HEART RATE: 136 MAXIMUM BLOOD PRESSURE: 140/53 85% MPHR: 128 100% MPHR: 150 METS: MAXIMUM STAGE REACHED: TOTAL EXERCISE TIME: 10:36 RESULTS: Baseline EKG revealed normal sinus rhythm without significant ST changes. With dobutamine administration, heart rate went up to 136 beats per minute. The patient did not have significant symptoms. There was no angina or arrhythmia. EKG did not reveal any ST-segment changes to indicate ischemia. By EKG criteria, this is an unremarkable dobutamine stress test. Baseline echo images revealed normal wall motion and wall thickening of all segments. With dobutamine administration, there was progressive increase in contractility of all segments suggesting that there is no evidence of dobutamine induced stress-induced ischemia on this patient. FINAL IMPRESSION: 1. By EKG criteria, this is unremarkable dobutamine stress test. 2. Normal dobutamine stress echocardiogram with progressive increase in contractility of all segments suggesting that there is no evidence of stress-induced ischemia on this study. MMODL / IJN: [id number] /
[2020-10-17 15:59] LABS: Hemoglobin A1C 7.6 % (4.0-6.0)
[2020-10-17] MEDS ORDERED: traZODone HCL 50 MG TAB PO SCH (21:00)
[2020-10-17] MEDS ORDERED: ATORVASTATIN 40 MG TAB PO SCH (21:00)
[2020-10-17] MEDS ORDERED: GABAPENTIN 300 MG CAP PO SCH (21:00)
== END 2020-10-17 15:34 | disposition home or self-care (01) ==
LOC: EC 19:15 → 6NMEDSUR 21:15
PROVIDERS: ADMIT Internal Medicine; ATTEND Internal Medicine
DX: R07.2 Precordial pain (principal); R11.2 Nausea with vomiting, unspecified; T50.995A Adverse effect of other drugs, medicaments and biological substances, initial encounter; R53.83 Other fatigue; R06.02 Shortness of breath; I25.10 Atherosclerotic heart disease of native coronary artery without angina pectoris; I10 Essential (primary) hypertension; H81.09 Meniere's disease, unspecified ear; E11.9 Type 2 diabetes mellitus without complications; E78.5 Hyperlipidemia, unspecified; H91.91 Unspecified hearing loss, right ear; K21.9 Gastro-esophageal reflux disease without esophagitis; M19.90 Unspecified osteoarthritis, unspecified site; G62.9 Polyneuropathy, unspecified; Z79.4 Long term (current) use of insulin; Z79.82 Long term (current) use of aspirin; Z79.899 Other long term (current) drug therapy; Z87.19 Personal history of other diseases of the digestive system; Z87.442 Personal history of urinary calculi; Z95.5 Presence of coronary angioplasty implant and graft; Z90.49 Acquired absence of other specified parts of digestive tract; Z86.010 Personal history of colon polyps; Z81.1 Family history of alcohol abuse and dependence; Z82.49 Family history of ischemic heart disease and other diseases of the circulatory system
CPT/HCPCS: 99285; 36415; 93005; 93351; 80061; 80053 ×2; 83690; 83735; 84484 ×2; 85025 ×2; 85610; 85730; 83036; 71046; G0378 ×2; J1250; Q9950; J1644

== ENCOUNTER 2021-11-22 14:50 | Emergency (ER) | payer OTHER ==
[2021-11-22 16:19] LABS: Basophils # (A) 0.1 k/uL (0-0.2); Basophils % (A) 2 %; Eosinophils # (A) 0.2 k/uL (0-0.7); Eosinophils % (A) 3 %; HCT 44.5 % (39.0-53.0); HGB 14.4 gm/dL (13.0-17.5); Lymphocytes # (A) 0.8 k/uL (1.0-4.8); Lymphocytes % (A) 17 %; MCH 29.5 pg (25.0-35.0); MCHC 32.4 g/dL (31.0-37.0); MCV 91.1 fL (80.0-100.0); Mean Platelet Volume 7.8; Monocytes # (A) 0.6 k/uL (0-1.0); Monocytes % (A) 13 %; Neutrophils % (A) 63 %; Platelet Count 175 k/uL (150-450); RBC 4.89 m/uL (4.30-5.90); RDW 14.1 % (11.5-15.5); WBC 4.8 k/uL (3.8-10.6)
--- NOTE | 2021-11-22 16:22 | ED ---
URI HPI - General Chief Complaint: Upper Respiratory Infection Stated Complaint: Covid+ Time Seen by Provider: 11/22/21 15:37 Source: patient Mode of arrival: ambulatory Limitations: no limitations - History of Present Illness Initial Comments: Patient is a 71-year-old male who tested positive for Covid today and is reporting to the ER by recommendation of his PCP. Patient started experiencing symptoms of cough, congestion, and diarrhea yesterday. He was having some mild shortness of breath with exertion. He tested positive at home last night. He attempted to be seen by his PCP today, they stated they could not see him. At this time he denies any chest pain, shortness of breath, fever, chills, nausea, vomiting, abdominal pain, hematochezia, melena, dysuria, hematuria, headache, vision or hearing changes, neck pain. - Related Data Home Medications Medication Instructions Recorded Confirmed Insulin Glargine [Lantus Vial] 50 units SQ HS 07/06/16 10/16/20 Gabapentin [Neurontin] 300 mg PO HS 06/04/17 10/16/20 metFORMIN HCL ER [Glucophage XR] 500 mg PO BID-W/MEALS 06/04/17 10/16/20 Empagliflozin [Jardiance] 25 mg PO DAILY 06/08/19 10/16/20 Rosuvastatin Calcium 20 mg PO HS 06/08/19 10/16/20 Pioglitazone [Actos] 15 mg PO DAILY 09/20/20 10/16/20 Metoprolol Tartrate [Lopressor] 25 mg PO BID 10/16/20 10/16/20 lisinopriL [Prinivil] 20 mg PO DAILY 10/16/20 10/16/20 traZODone HCL [Desyrel] 50 mg PO HS 10/16/20 10/16/20 Previous Rx's Medication Instructions Recorded Aspirin 81 mg PO DAILY #30 chew 06/05/17 Nirmatrelvir/Ritonavir [Paxlovid 1 each PO BID 5 Days #1 unit 11/22/21 2X150 mg-100 mg (Eua)] Allergies Allergy/AdvReac Type Severity Reaction Status Date / Time No Known Allergies Allergy Verified 11/22/21 15:26 Review of Systems ROS Statement: Those systems with pertinent positive or pertinent negative responses have been documented in the HPI. ROS Other: All systems not noted in ROS Statement are negative. Past Medical History Past Medical History: Coronary Artery Disease (CAD), Chest Pain / Angina, Diabetes Mellitus, GERD/Reflux, Hearing Disorder / Deafness, Hyperlipidemia, Hypertension, Osteoarthritis (OA) Additional Past Medical History / Comment(s): IDDM type II, occasional neuropathy bilateral feet, nephrolithiasis-passed stones on his own, meniere's dx, R ear deafness, vertigo, benign colon polyps, ischemic heart disease History of Any Multi-Drug Resistant Organisms: None Reported Past Surgical History: Cholecystectomy, Heart Catheterization With Stent, Tonsillectomy Additional Past Surgical History / Comment(s): cardiac stent to lad, bilateral ureter surgery as a child for misplacement, colonoscopies/benign polypectomies. Past Anesthesia/Blood Transfusion Reactions: Motion Sickness, Postoperative Nausea & Vomiting (PONV) Date of Last Stent Placement:: 06-04-17 Past Psychological History: No Psychological Hx Reported Smoking Status: Never smoker Past Alcohol Use History: None Reported Past Drug Use History: None Reported - Past Family History Father Additional Family Medical History / Comment(s): Father was an alcoholic and pt did not know him well. Mother Family Medical History: Cancer, Coronary Artery Disease (CAD), Myocardial Infarction (OH) Additional Family Medical History / Comment(s): Pt states mother had CAD diagnosed in her 60's with PCI/stents placed. He believes she had a OH in that same time frame. General Exam Limitations: no limitations General appearance: alert, in no apparent distress Head exam: Present: atraumatic, normocephalic, normal inspection Eye exam: Present: normal appearance, EOMI. Absent: scleral icterus, periorbital swelling Neck exam: Present: normal inspection Respiratory exam: Present: normal lung sounds bilaterally. Absent: respiratory distress, wheezes, rales, rhonchi, stridor Cardiovascular Exam: Present: regular rate, normal rhythm, normal heart sounds. Absent: systolic murmur, diastolic murmur, rubs, gallop, clicks Neurological exam: Present: alert, oriented X3, CN II-XII intact Psychiatric exam: Present: normal affect, normal mood Skin exam: Present: warm, dry, intact, normal color. Absent: rash Course Vital Signs 11/22/21 11/22/21 15:22 17:15 Temperature 98.6 F 98.7 F Pulse Rate 84 83 Respiratory 20 18 Rate Blood Pressure 153/77 133/78 O2 Sat by Pulse 97 97 Oximetry Medical Decision Making - Medical Decision Making Patient is a 71-year-old male presenting for evaluation after testing positive for Covid. Patient was instructed by his PCP to report for further evaluation. On examination heart and lungs are clear to auscultation. Patient admits to cough, congestion, sore throat, diarrhea. Chest x-rays negative for any acute process. Lab work is grossly normal. Patient is positive for Covid here in the ER. We will treat with paxlovid. Discussed quarantine guidelines and supportive treatment. Follow-up with PCP. Discussed return parameters answered all questions. Patient conveyed verbal understanding and agreed to the plan. I discussed this case with my attending Dr. Rodriguez - Lab Data Result diagrams: 11/22/21 16:00 11/22/21 16:00 Lab Results 11/22/21 11/22/21 11/22/21 Range/Units 16:00 16:00 16:00 WBC 4.8 (3.8-10.6) k/uL RBC 4.89 (4.30-5.90) m/uL Hgb 14.4 (13.0-17.5) gm/dL Hct 44.5 (39.0-53.0) % MCV 91.1 (80.0-100.0) fL MCH 29.5 (25.0-35.0) pg MCHC 32.4 (31.0-37.0) g/dL RDW 14.1 (11.5-15.5) % Plt Count 175 (150-450) k/uL MPV 7.8 Neutrophils % 63 % Lymphocytes % 17 % Monocytes % 13 % Eosinophils % 3 % Basophils % 2 % Neutrophils # 3.0 (1.3-7.7) k/uL Lymphocytes # 0.8 L (1.0-4.8) k/uL Monocytes # 0.6 (0-1.0) k/uL Eosinophils # 0.2 (0-0.7) k/uL Basophils # 0.1 (0-0.2) k/uL Sodium 138 (137-145) mmol/L Potassium 4.0 (3.5-5.1) mmol/L Chloride 101 (98-107) mmol/L Carbon Dioxide 23 (22-30) mmol/L Anion Gap 14 mmol/L BUN 12 (9-20) mg/dL Creatinine 0.90 (0.66-1.25) mg/dL Est GFR (CKD-EPI)AfAm >90 (>60 ml/min/1.73 sqM) Est GFR (CKD-EPI)NonAf 86 (>60 ml/min/1.73 sqM) Glucose 200 H (74-99) mg/dL Calcium 8.9 (8.4-10.2) mg/dL Total Bilirubin 0.5 (0.2-1.3) mg/dL AST 115 H (17-59) U/L ALT 57 H (4-49) U/L Alkaline Phosphatase 73 (38-126) U/L Total Protein 6.6 (6.3-8.2) g/dL Albumin 4.2 (3.5-5.0) g/dL Coronavirus (PCR) Detected A (Not Detectd) Disposition Clinical Impression: COVID Disposition: HOME SELF-CARE Condition: Good Instructions (If sedation given, give patient instructions): COVID-19 (Coronavirus Disease 2019) (ED) Additional Instructions: Take medication as prescribed. Report back to ER with any new or worsening s ymptoms. Quarantine for 5 days starting from the first day of symptoms, followed by 10 days of strict mask usage. Extend your quarantine if you are still experiencing symptoms or have a fever. You must be symptom/fever free for 24 hours before ending quarantine. Prescriptions: Nirmatrelvir/Ritonavir [Paxlovid 2X150 mg-100 mg (Eua)] 1 each PO BID 5 Days #1 unit Is patient prescribed a controlled substance at d/c from ED?: No Referrals: Nonstaff,Physician [REFERRING] - 1-2 days Time of Disposition: 17:00
--- NOTE | 2021-11-22 16:24 | XR ---
EXAMINATION TYPE: XR chest 2V DATE OF EXAM: 11/22/2021 4:15 PM COMPARISON: Chest radiographs from 10/16/2020 TECHNIQUE: XR chest 2V Frontal and lateral views of the chest. CLINICAL INDICATION:Male, 71 years old with history of cough, covid +; FINDINGS: Lungs/Pleura: There is no evidence of pleural effusion, focal consolidation, or pneumothorax. Pulmonary vascularity: Unremarkable. Heart/mediastinum: Cardiomediastinal silhouette is unremarkable. Musculoskeletal: No acute osseous pathology. IMPRESSION: No acute cardiopulmonary disease/process.
[2021-11-22 16:37] LABS: ALT 57 U/L (4-49); AST 115 U/L (17-59); African American GFR (CKD) >90 (>60 ml/min/1.73 sqM); Albumin 4.2 g/dL (3.5-5.0); Alkaline Phosphatase 73 U/L (38-126); Anion Gap 14 mmol/L; Blood Urea Nitrogen 12 mg/dL (9-20); Calcium 8.9 mg/dL (8.4-10.2); Carbon Dioxide 23 mmol/L (22-30); Chloride 101 mmol/L (98-107); Glucose 200 mg/dL (74-99); Non-African American GFR(CKD) 86 (>60 ml/min/1.73 sqM); Sodium 138 mmol/L (137-145); Total Bilirubin 0.5 mg/dL (0.2-1.3); Total Protein 6.6 g/dL (6.3-8.2)
[2021-11-22 17:25] VITALS: BP 133/78; PULSE 83; RESP 18; TEMP 98.7
== END 2021-11-22 17:17 | disposition home or self-care (01) ==
LOC: EC 14:50
DX: U07.1 COVID-19 (principal); I25.10 Atherosclerotic heart disease of native coronary artery without angina pectoris; E11.9 Type 2 diabetes mellitus without complications; K21.9 Gastro-esophageal reflux disease without esophagitis; E78.5 Hyperlipidemia, unspecified; I10 Essential (primary) hypertension; M19.90 Unspecified osteoarthritis, unspecified site; Z79.82 Long term (current) use of aspirin; Z79.84 Long term (current) use of oral hypoglycemic drugs; Z79.4 Long term (current) use of insulin; Z79.899 Other long term (current) drug therapy
CPT/HCPCS: 36415; 71046; 80053; 85025; 87635; 99285

== ENCOUNTER 2021-12-15 16:53 | Emergency (ER) | payer OTHER ==
[2021-12-15 17:03] VITALS: TEMP 97.1
[2021-12-15] MEDS ORDERED: ONDANSETRON 4 MG/2 ML VIAL IVP STA (17:16)
[2021-12-15] MEDS ORDERED: SODIUM CHLORIDE 0.9% 500 ML 500 ML IV STA (17:16)
[2021-12-15] MEDS ORDERED: ASPIRIN 81 MG PO STA (17:16)
--- NOTE | 2021-12-15 17:18 | ED ---
Chest Pain HPI - General Chief Complaint: Chest Pain Stated Complaint: Chest pain,WILIAN Time Seen by Provider: 12/15/21 17:10 Source: patient Mode of arrival: wheelchair Limitations: no limitations - History of Present Illness MD Complaint: chest pain Onset/Timin -: days(s) Onset: during rest Pain Location: epigastric Pain Radiation: none Severity: moderate Quality: aching, heaviness Consistency: constant Improves With: nothing Worsens With: nothing Anginal Symptoms: nausea, vomiting Treatments Prior to Arrival: none - Related Data Home Medications Medication Instructions Recorded Confirmed Insulin Glargine [Lantus Vial] 50 units SQ HS 07/06/16 10/16/20 Gabapentin [Neurontin] 300 mg PO HS 06/04/17 10/16/20 metFORMIN HCL ER [Glucophage XR] 500 mg PO BID-W/MEALS 06/04/17 10/16/20 Empagliflozin [Jardiance] 25 mg PO DAILY 06/08/19 10/16/20 Rosuvastatin Calcium 20 mg PO HS 06/08/19 10/16/20 Pioglitazone [Actos] 15 mg PO DAILY 09/20/20 10/16/20 Metoprolol Tartrate [Lopressor] 25 mg PO BID 10/16/20 10/16/20 lisinopriL [Prinivil] 20 mg PO DAILY 10/16/20 10/16/20 traZODone HCL [Desyrel] 50 mg PO HS 10/16/20 10/16/20 Previous Rx's Medication Instructions Recorded Aspirin 81 mg PO DAILY #30 chew 06/05/17 Nirmatrelvir/Ritonavir [Paxlovid 1 each PO BID 5 Days #1 unit 11/22/21 2X150 mg-100 mg (Eua)] Allergies Allergy/AdvReac Type Severity Reaction Status Date / Time No Known Allergies Allergy Verified 12/15/21 17:03 Review of Systems ROS Statement: Those systems with pertinent positive or pertinent negative responses have been documented in the HPI. ROS Other: All systems not noted in ROS Statement are negative. Constitutional: Denies: fever, chills Respiratory: Denies: cough, dyspnea Cardiovascular: Reports: chest pain. Denies: palpitations, edema, syncope Gastrointestinal: Reports: nausea, vomiting, diarrhea (For about 4 weeks). Denies: abdominal pain, melena, hematochezia Genitourinary: Denies: dysuria, hematuria Musculoskeletal: Denies: back pain Skin: Denies: rash Neurological: Denies: headache EKG Findings - EKG Results: EKG: interpreted by ERMD, sinus rhythm, normal axis, normal QRS, normal ST/T EKG shows: tachycardia (Rate 118 bpm) Past Medical History Past Medical History: Coronary Artery Disease (CAD), Chest Pain / Angina, Diabetes Mellitus, GERD/Reflux, Hearing Disorder / Deafness, Hyperlipidemia, Hypertension, Osteoarthritis (OA) Additional Past Medical History / Comment(s): IDDM type II, occasional neuropathy bilateral feet, nephrolithiasis-passed stones on his own, meniere's dx, R ear deafness, vertigo, benign colon polyps, ischemic heart disease History of Any Multi-Drug Resistant Organisms: None Reported Past Surgical History: Cholecystectomy, Heart Catheterization With Stent, Tonsillectomy Additional Past Surgical History / Comment(s): cardiac stent to lad, bilateral ureter surgery as a child for misplacement, colonoscopies/benign polypectomies. Past Anesthesia/Blood Transfusion Reactions: Motion Sickness, Postoperative Nausea & Vomiting (PONV) Date of Last Stent Placement:: 06-04-17 Past Psychological History: No Psychological Hx Reported Smoking Status: Never smoker Past Alcohol Use History: None Reported Past Drug Use History: None Reported - Past Family History Father Additional Family Medical History / Comment(s): Father was an alcoholic and pt did not know him well. Mother Family Medical History: Cancer, Coronary Artery Disease (CAD), Myocardial Infarction (NV) Additional Family Medical History / Comment(s): Pt states mother had CAD diagnosed in her 60's with PCI/stents placed. He believes she had a NV in that same time frame. General Exam Limitations: no limitations General appearance: alert, in no apparent distress Head exam: Present: atraumatic, normocephalic Eye exam: Present: normal appearance. Absent: scleral icterus, conjunctival injection Neck exam: Present: normal inspection Respiratory exam: Present: normal lung sounds bilaterally. Absent: respiratory distress, wheezes, rales, rhonchi, stridor Cardiovascular Exam: Present: regular rate, normal rhythm, normal heart sounds. Absent: systolic murmur, diastolic murmur, rubs, gallop GI/Abdominal exam: Present: soft. Absent: distended, tenderness, guarding, rebound, rigid, mass Extremities exam: Present: normal inspection, normal capillary refill. Absent: pedal edema, calf tenderness Back exam: Present: normal inspection Neurological exam: Present: alert Skin exam: Present: warm, intact, normal color, diaphoretic. Absent: rash Course Vital Signs 12/15/21 12/15/21 16:56 18:30 Temperature 97.1 F L Pulse Rate 122 H 105 H Respiratory 24 18 Rate Blood Pressure 138/86 129/71 O2 Sat by Pulse 96 95 Oximetry Chest Pain MDM - [facility] This patient is 71-year-old man presenting with epigastric chest pain has been going on for about 3 days now. His initial workup here does reveal some mild elevation of his creatinine. I discussed with patient that given his symptoms I was going to admit him for serial cardiac enzymes, telemetry monitoring and cardiology consultation but patient states that the symptoms have been going on 3 days she would like to go home and see a professor of journalism as outpatient. We discussed return parameters as well as further care and follow-up. Disposition Clinical Impression: Chest pain Disposition: Left Against Medical Advice Condition: Good Instructions (If sedation given, give patient instructions): Chest Pain (ED) Is patient prescribed a controlled substance at d/c from ED?: No [facility] [[facility] - 1-2 days
--- NOTE | 2021-12-15 17:41 | XR ---
EXAMINATION TYPE: XR chest 2V DATE OF EXAM: 12/15/2021 COMPARISON: 11/22/2021 HISTORY: Chest pain TECHNIQUE: Frontal and lateral views of the chest are obtained. FINDINGS: There is no focal air space opacity, pleural effusion, or pneumothorax seen. The cardiac silhouette size is within normal limits. The osseous structures are intact. IMPRESSION: No acute cardiopulmonary process.
[2021-12-15 18:13] LABS: Basophils # (A) 0.1 k/uL (0-0.2); Basophils % (A) 1 %; Eosinophils # (A) 0.5 k/uL (0-0.7); Eosinophils % (A) 3 %; HGB 16.4 gm/dL (13.0-17.5); Lymphocytes % (A) 13 %; MCH 29.4 pg (25.0-35.0); MCHC 32.2 g/dL (31.0-37.0); MCV 91.4 fL (80.0-100.0); Mean Platelet Volume 8.1; Monocytes # (A) 0.8 k/uL (0-1.0); Monocytes % (A) 5 %; Neutrophils # (A) 12.1 k/uL (1.3-7.7); Neutrophils % (A) 77 %; Platelet Count 338 k/uL (150-450); RBC 5.58 m/uL (4.30-5.90); RDW 14.3 % (11.5-15.5); WBC 15.6 k/uL (3.8-10.6)
[2021-12-15 18:24] LABS: Calcium 10.3 mg/dL (8.4-10.2); Magnesium 1.3 mg/dL (1.6-2.3); Potassium 4.5 mmol/L (3.5-5.1); Total Bilirubin 0.6 mg/dL (0.2-1.3); Total Protein 7.8 g/dL (6.3-8.2)
[2021-12-15 18:32] VITALS: BP 129/71; PULSE 105; RESP 18
[2021-12-15 18:38] LABS: Partial Thromboplastin Time 22.2 sec (22.0-30.0); Prothrombin Time 10.7 sec (9.0-12.0)
[2021-12-15 20:05] LABS: Appearance,Urine Cloudy (Clear); Bilirubin,Urine Negative (Negative); Blood,Urine Negative (Negative); Color,Urine Yellow; Glucose,Urine (UA) Trace (Negative); Hyaline Casts,Urine 155 /lpf (0-2); Ketones,Urine 1+ (Negative); Leukocyte Esterase,Urine Negative (Negative); Mucus,Urine Few /hpf; Nitrite,Urine Negative (Negative); Protein,Urine 1+ (Negative); RBC,Urine 1 /hpf (0-5); Specific Gravity,Urine 1.019 (1.001-1.035); Squamous Epithelial Cell,Urine 1 /hpf (0-4); Urobilinogen,Urine <2.0 mg/dL (<2.0); WBC,Urine 2 /hpf (0-5)
== END 2021-12-15 19:46 | disposition left against medical advice (07) ==
LOC: EC 16:53
DX: R07.89 Other chest pain (principal); R11.2 Nausea with vomiting, unspecified; I25.10 Atherosclerotic heart disease of native coronary artery without angina pectoris; E11.9 Type 2 diabetes mellitus without complications; E78.5 Hyperlipidemia, unspecified; I10 Essential (primary) hypertension; M19.90 Unspecified osteoarthritis, unspecified site; Z79.4 Long term (current) use of insulin; Z79.899 Other long term (current) drug therapy
CPT/HCPCS: 36415; 93005; 85379; 80053; 82150; 83690; 83735; 84484; 85025; 85610; 85730; 81001; 71046; 99285; 96374; 96361; J2405

== ENCOUNTER 2023-06-18 06:17 | Day surgery (SDC) | payer OTHER ==
[2023-06-16 13:43] VITALS: BMI 31.3
[~2023-06-18 06:17] MED LIST: LIDOCAINE 1% (10MG/ML) FOR IV START INTRADERMA PRN
[2023-06-18] MEDS ORDERED: ONDANSETRON 4 MG/2 ML VIAL IVP PRN (07:00)
[2023-06-18] MEDS: LACTATED RINGERS 1,000 ML IV SCH (07:17)
[2023-06-18 07:30] VITALS: TEMP 97.8
[2023-06-18 07:38] LABS: Glucose,Whole Blood 97 mg/dL (70-110)
[2023-06-18] MEDS ORDERED: PROPOFOL 10 MG/ML 20 ML VIAL IV ONE (07:40)
--- NOTE | 2023-06-18 08:02 | P.PCN ---
Date of Procedure: 06/18/23 Procedure(s) Performed: BRIEF HISTORY: Patient is a 72-year-old pleasant white male scheduled for an elective colonoscopy as a part of screening for colon cancer. PROCEDURE PERFORMED: Colonoscopy. PREOPERATIVE DIAGNOSIS: Screening for colon cancer. IV sedation per Anesthesia. PROCEDURE: After informed consent was obtained, the patient, was brought into the endoscopy unit. IV sedation was administered by Anesthesia under continuous monitoring. Digital rectal examination was normal. Initially the Olympus CF-160 flexible video colonoscope was then inserted in the rectum, gradually advanced into the cecum without any difficulty. Careful examination was performed as the scope was gradually being withdrawn. Ileocecal valve and the appendiceal orifice were visualized and appeared normal. Prep was excellent. Mucosa of the cecum, ascending colon, transverse colon, descending colon, sigmoid colon, and rectum appeared normal. Scattered sigmoid diverticulosis. Retroflexion was performed in the rectum and small internal hemorrhoids were seen. The patient tolerated the procedure well. IMPRESSION: Normal-appearing colon from rectum to cecum.with no evidence of colorectal neoplasia Scattered sigmoid diverticula Small internal hemorrhoids RECOMMENDATIONS: Findings of this examination were discussed with the patient as well as a family. He was advised to have a repeat screening colonoscopy in 10 years.
[2023-06-18 08:12] LABS: Glucose,Whole Blood 93 mg/dL (70-110)
[2023-06-18 09:17] VITALS: BP 122/75; PULSE 79; RESP 18
== END 2023-06-18 08:47 | disposition home or self-care (01) ==
LOC: ORWHC2ENDO 06:17
PROVIDERS: ATTEND Internal Medicine Gastroenterology
DX: Z12.11 Encounter for screening for malignant neoplasm of colon (principal); K57.30 Diverticulosis of large intestine without perforation or abscess without bleeding; K64.8 Other hemorrhoids; I25.10 Atherosclerotic heart disease of native coronary artery without angina pectoris; I10 Essential (primary) hypertension; E78.5 Hyperlipidemia, unspecified; K21.9 Gastro-esophageal reflux disease without esophagitis; G47.33 Obstructive sleep apnea (adult) (pediatric); E11.40 Type 2 diabetes mellitus with diabetic neuropathy, unspecified; M19.90 Unspecified osteoarthritis, unspecified site; Z79.84 Long term (current) use of oral hypoglycemic drugs; Z79.82 Long term (current) use of aspirin; Z79.899 Other long term (current) drug therapy; Z98.890 Other specified postprocedural states; Z95.5 Presence of coronary angioplasty implant and graft; Z79.01 Long term (current) use of anticoagulants; Z90.49 Acquired absence of other specified parts of digestive tract; Z90.89 Acquired absence of other organs; Z87.442 Personal history of urinary calculi
CPT/HCPCS: 45378; J2704

== ENCOUNTER 2024-01-12 17:58 | Emergency (ER) | payer OTHER ==
[2024-01-12 18:16] VITALS: PULSE 85; TEMP 97.9
--- NOTE | 2024-01-12 18:49 | ED ---
Recheck HPI - General Chief Complaint: Recheck/Abnormal Lab/Rx Stated Complaint: med refill Time Seen by Provider: 01/12/24 18:48 Source: patient, RN notes reviewed Mode of arrival: ambulatory Limitations: no limitations - History of Present Illness Initial Comments: 73-year-old male presented to the ER for medication refill. Patient states he has been out of his metoprolol for approximately 2 weeks. [facility] is unable to be seen for approximately 1 month. [facility] who [facility] to come to [facility] for medication refill. He denies any chest pain, shortness of breath, dizziness, light headedness, headache, peripheral edema or other complaints. - Related Data Home Medications Medication Instructions Recorded Confirmed Insulin Glargine [Lantus Vial] 50 units SQ HS 07/06/16 06/18/23 Gabapentin [Neurontin] 300 mg PO HS 06/04/17 06/18/23 metFORMIN HCL ER [Glucophage XR] 500 mg PO BID-W/MEALS 06/04/17 06/18/23 Metoprolol Tartrate [Lopressor] 25 mg PO BID 10/16/20 06/18/23 lisinopriL [Prinivil] 5 mg PO DAILY 10/16/20 06/18/23 traZODone HCL [Desyrel] 50 mg PO HS 10/16/20 06/18/23 Semaglutide [Ozempic] 2 mg SQ WEEKLY 06/16/23 06/18/23 hydroCHLOROthiazide 12.5 mg PO DAILY 06/16/23 06/18/23 Previous Rx's Medication Instructions Recorded Aspirin 81 mg PO DAILY #30 chew 06/05/17 Metoprolol Tartrate [Lopressor] 50 mg PO BID #60 tab 01/12/24 Allergies Allergy/AdvReac Type Severity Reaction Status Date / Time No Known Allergies Allergy Verified 06/18/23 07:16 Review of Systems ROS Statement: Those systems with pertinent positive or pertinent negative responses have been documented in the HPI. ROS Other: All systems not noted in ROS Statement are negative. Past Medical History Past Medical History: Coronary Artery Disease (CAD), Chest Pain / Angina, Diabetes Mellitus, GERD/Reflux, Hearing Disorder / Deafness, Hyperlipidemia, Hypertension, Osteoarthritis (OA) Additional Past Medical History / Comment(s): IDDM type II, occasional neuropathy bilateral feet, nephrolithiasis-passed stones on his own, meniere's dx, R ear deafness, vertigo, benign colon polyps, ischemic heart disease, History of Any Multi-Drug Resistant Organisms: None Reported Past Surgical History: Cholecystectomy, Heart Catheterization With Stent, Tonsillectomy Additional Past Surgical History / Comment(s): cardiac stent to lad, bilateral ureter surgery as a child for misplacement, colonoscopies/benign polypectomies. Past Anesthesia/Blood Transfusion Reactions: Motion Sickness, Postoperative Nausea & Vomiting (PONV) Additional Past Anesthesia/Blood Transfusion Reaction / Comment(s): no blood transfusion Date of Last Stent Placement:: 06-04-17 Past Psychological History: No Psychological Hx Reported Smoking Status: Never smoker - Past Family History Mother Family Medical History: Cancer, Coronary Artery Disease (CAD), Myocardial Infarction (HI) Additional Family Medical History / Comment(s): Pt states mother had CAD diagnosed in her 60's with PCI/stents placed. He believes she had a HI in that same time frame. General Exam Limitations: no limitations General appearance: alert, in no apparent distress Respiratory exam: Present: normal lung sounds bilaterally. Absent: respiratory distress, wheezes, rales, rhonchi, stridor Cardiovascular Exam: Present: regular rate, normal rhythm, normal heart sounds. Absent: systolic murmur, diastolic murmur, rubs, gallop, clicks Neurological exam: Present: alert, oriented X3, CN II-XII intact Skin exam: Present: warm, dry, intact, normal color. Absent: rash Course Vital Signs 01/12/24 01/12/24 18:14 19:13 Temperature 97.9 F Pulse Rate 85 85 Respiratory 16 18 Rate Blood Pressure 154/82 135/72 O2 Sat by Pulse 96 95 Oximetry Medical Decision Making - Medical Decision Making Was pt. sent in by a medical professional or institution (, PA, [facility] [employer], urgent care, hospital, or [facility]...) When possible be specific @ -No Did you speak to anyone other than the patient for history (EMS, parent, family, police, friend...)? What history was obtained from this source @ -No Did you review nursing and triage notes (agree or disagree)? Why? @ -I reviewed and agree with nursing and triage notes Were old charts reviewed (outside hosp., previous admission, EMS record, old EKG, old radiological studies, urgent care reports/EKG's, [facility] records)? Report findings @ -No old charts were reviewed Differential Diagnosis (chest pain, altered mental status, abdominal pain women, abdominal pain men, vaginal bleeding, weakness, fever, dyspnea, syncope, headache, dizziness, GI bleed, back pain, seizure, CVA, palpatations, mental health, musculoskeletal)? @ -Medication refill, viral illness, medication recheck This is determined to be all-inclusive EKG interpreted by me (3pts min.). @ -None done X-rays interpreted by me (1pt min.). @ -None done CT interpreted by me (1pt min.). @ -None done U/S interpreted by me (1pt. min.). @ -None done What testing was considered but not performed or refused? (CT, X-rays, U/S, labs)? Why? @ -None What meds were considered but not given or refused? Why? @ -None Did you discuss the management of the patient with other professionals (professionals i.e. , PA, [employer], lab, RT, psych nurse, group social worker, vice president of advertising, teacher, cavalry officer, commercial lending relationship manager)? Give summary @ -No Was smoking cessation discussed for >3mins.? @ -No Was critical care preformed (if so, how long)? @ -No Were there social determinants of health that impacted care today? How? (Homelessness, low income, unemployed, alcoholism, drug addiction, transportation, low edu. Level, literacy, decrease access to med. care, retirement, rehab)? @ -No Was there de-escalation of care discussed even if they declined (Discuss DNR or withdrawal of care, Hospice)? DNR status @ -No What co-morbidities impacted this encounter? (DM, HTN, Smoking, COPD, CAD, Cancer, CVA, ARF, Chemo, Hep., AIDS, mental health diagnosis, sleep apnea, morbid obesity)? @ -None Was patient admitted / discharged? Hospital course, mention meds given and route, prescriptions, significant lab abnormalities, going to OR and other pe rtinent info. @ -Discharge. 73-year-old male presented to ER for a medication refill. History and physical exam completed. Vitals within normal limits. Patient in no signs of acute distress and nontoxic-appearing. Exam benign. Patient has no acute complaints. Metoprolol tartrate 50 mg twice daily prescribed. Medication and dosing reviewed/compared by medication bottle patient brought with him. Return parameters discussed. Patient discharged in stable condition with follow-up to PCP. Patient verbally expressed understanding agree with care plan. Case discussed with ED attending, Dr. Koehler. Undiagnosed new problem with uncertain prognosis? @ -No Drug Therapy requiring intensive monitoring for toxicity (Heparin, Nitro, Insulin, Cardizem)? @ -No Were any procedures done? @ -No Diagnosis/symptom? @ -Medication refill Acute, or Chronic, or Acute on Chronic? @ -Acute Uncomplicated (without systemic symptoms) or Complicated (systemic symptoms)? @ -Uncomplicated Side effects of treatment? @ -No Exacerbation, Progression, or Severe Exacerbation? @ -No Poses a threat to life or bodily function? How? (Chest pain, USA, HI, pneumonia, PE, COPD, DKA, ARF, appy, cholecystitis, CVA, Diverticulitis, Homicidal, Suicidal, threat to staff... and all critical care pts) @ -No Disposition Clinical Impression: Encounter for medication refill Disposition: HOME SELF-CARE Condition: Stable Additional Instructions: Follow-up PCP as soon as possible. Return to the ER for any new or worsening concerns. Prescriptions: Metoprolol Tartrate [Lopressor] 50 mg PO BID #60 tab Is patient prescribed a controlled substance at d/c from ED?: No Referrals: [facility] [Primary Care Provider] - 1-2 days Time of Disposition: 18:48
[2024-01-12 19:15] VITALS: BP 135/72; RESP 18
== END 2024-01-12 19:13 | disposition home or self-care (01) ==
LOC: EC 17:58
DX: Z76.0 Encounter for issue of repeat prescription (principal)
CPT/HCPCS: 99281